=== PATIENT | male | born 1970 | race Caucasian/White ===

== ENCOUNTER → 2018-02-17 08:06 | Outpatient (CLI) | payer OTHER, SELFPAY ==
--- NOTE | 2018-02-17 08:19 | US_ITS ---
STUDY: ABDOMINAL ULTRASOUND - RIGHT UPPER QUADRANT REASON FOR VISIT: Male, 48 years old. Epigastric pain. TECHNIQUE: Ultrasound evaluation of the right upper quadrant was performed with real-time and static andrew-scale imaging. TECHNICAL QUALITY: Limited. Examination limited by bowel gas. COMPARISON: None. FINDINGS: Liver: The liver measures 14.2 cm. There is normal echogenicity of the liver. The bile ducts are within normal limits. There is hepatic color flow. The direction of portal flow is hepatopetal. There is no demonstrated mass lesion. Gallbladder: Normal distended gallbladder. The gallbladder wall measures 2.9 mm. There is a negative sonographic Dinh's sign. There is no pericholecystic fluid. There are no gallstones. Common Bile Duct (C.B.D.): The common bile duct measures 1.8 mm. Pancreas: There is nonvisualization of the pancreas. Right Kidney: Normal size of the right kidney. The right kidney measures 11.8 cm x 4.8 cm x 5.7 cm. Normal renal cortex. The right cortex measures 2.0 cm. There is no demonstrated renal mass or cyst. There is no right hydronephrosis. US/Gallbladder IMPRESSION: Normal right upper quadrant ultrasound examination. Electronically Signed: Axel Mckenzie MD at 20:24 EDT Tel [phone], Service support ,
== END ==
PROVIDERS: Family Provider Internal Medicine; PCP Internal Medicine; Visit Provider Internal Medicine
DX: R10.13 Epigastric pain (principal)
CPT/HCPCS: 76705

== ENCOUNTER → 2018-06-05 06:47 | Outpatient (CLI) | payer OTHER, SELFPAY ==
[2018-06-05 06:52] LABS: Mucous, Urine 0 SEEN /hpf (<or=2+); Red Blood Cells-Urine 0 SEEN /hpf (0-5); Squamous Epithelial Cells - UA 0 SEEN /hpf (0-5); White Blood Cells 0 SEEN /hpf (0-5)
[2018-06-05 07:51] LABS: Absolute Lymphocyte Count 1.75 X10^3/ul (0.83-4.51); Absolute Neutrophil Count 2.4 X10^3/uL (2.0-7.7); Basophil# 0.02 X10^3/uL; Basophil% 0.4 % (0-1); Eosinophil# 0.24 X10^3/uL; Eosinophils% 4.8 % (0-5); Hematocrit 42.5 % (40-54); Hemoglobin 14.5 g/dl (13.0-16.5); Lymphocyte # 1.75 X10^3/ul (4.0); Mean Corp Hgb Conc 34.1 g/gl (32-36); Mean Corpuscular Hgb 30.7 pg (27.0-32.0); Mean Platelet Vol. 10.1 fl (6.2-12.0); Neutrophil # 2.38 X10^3/uL (2.7-7.7); Neutrophil % 47.6 % (47-70); POSITIVE COUNT NO; POSITIVE DIFFERENTIAL NO; POSITIVE MORPHOLOGY NO; Platelet Count 191 K/mm3 (150-450); RBC Distribution Width CV 13.2 % (11.6-14.6); RBC Distribution Width SD 43.2 fl (35.1-43.9); Red Blood Count 4.72 M/mm3 (4.6-6.2)
[2018-06-05 08:21] LABS: AST(SGOT) 20 U/L (15-37); Alanine Aminotransfer ALT/SGPT 33 U/L (16-61); Albumin, Serum 3.9 g/dL (3.2-5.0); Alkaline Phosphatase 46 U/L (45-117); Anion Gap 8 (5-15); BUN 16 mg/dL (7-18); BUN/Creat Ratio 15.1 RATIO (10-20); Calcium,Total 9.1 mg/dL (8.5-10.1); Chloride 105 mmol/L (98-107); Cholesterol 170 mg/dL (200); Creatinine, Serum 1.06 mg/dL (0.70-1.30); EST Glomerular Filtration Rate 79 mL/min (>60); Est Glom Filt Rate - Afr Amer 95 mL/min (>60); Globulin 3.8 g/dL (2.2-4.2); Glucose 85 mg/dL (74-106); High Density Lipoprotein 40 mg/dL; PSA,Total - Annual Screen 0.91 ng/mL (0.00-4.00); Potassium 4.1 mmol/L (3.5-5.1); Protein, Total 7.7 g/dL (6.4-8.2); Sodium Level 140 mmol/L (136-145); Thyroid Stim Hormone (TSH) 1.83 uIU/mL (0.358-3.74); Triglycerides 125 mg/dL; Very Low Density Lipoprotein 25 mg/dL (5-40)
[2018-06-05 08:55] LABS: Color, Urine Yellow (Yellow); Glucose, Dipstick Normal (Normal); Ketone-Dipstick Negative (Negative); Leukocyte Esterase-Dipstick Negative /ul (Negative); Nitrite-Dipstick Negative (Negative); Occult Blood-Urine Negative /ul (Negative); Protein-Dipstick Negative (Negative); Specific Gravity, Urine 1.025 (1.002-1.030); Urine Bilirubin Dipstick Negative (Negative); Urine Clarity Clear (Clear); Urine Urobilinogen Normal (Normal)
[2018-06-05 08:59] LABS: Bacteria RARE /hpf (None Seen)
[2018-06-05 09:16] LABS: Microalbumin,Random Urine 9.6 mg/L (NO RANGE EST.); Microalbumin:Creatinine Ratio 3.5 mg/g CRE (<30 mg/g CRE)
== END ==
PROVIDERS: Family Provider Internal Medicine; PCP Internal Medicine; Visit Provider Internal Medicine
DX: E78.00 Pure hypercholesterolemia, unspecified (principal); I10 Essential (primary) hypertension; Z12.5 Encounter for screening for malignant neoplasm of prostate
CPT/HCPCS: 36415; 80053; 80061; 81001; 82043; 82570; 84153; 84443; 85025; G0103

== ENCOUNTER → 2019-05-09 | Outpatient (CLI) | payer OTHER, SELFPAY ==
[2019-05-09 07:17] LABS: Color, Urine Yellow (Yellow); Glucose, Dipstick Normal (Normal); Ketone-Dipstick Negative (Negative); Leukocyte Esterase-Dipstick Negative /ul (Negative); Nitrite-Dipstick Negative (Negative); Occult Blood-Urine Negative /ul (Negative); Protein-Dipstick Negative (Negative); Urine Bilirubin Dipstick Negative (Negative); Urine Clarity Clear (Clear); Urine Urobilinogen Normal (Normal)
[2019-05-09 07:24] LABS: Absolute Lymphocyte Count 1.14 X10^3/ul (0.83-4.51); Absolute Neutrophil Count 1.5 X10^3/uL (2.0-7.7); Basophil# 0.01 X10^3/uL; Basophil% 0.3 % (0-1); Eosinophil# 0.17 X10^3/uL; Eosinophils% 5.5 % (0-5); Hematocrit 34.4 % (40-54); Hemoglobin 12.1 g/dl (13.0-16.5); Lymphocyte # 1.14 X10^3/ul (4.0); Lymphocyte % 36.8 % (19-41); Mean Corp Hgb Conc 35.2 g/gl (32-36); Mean Corpuscular Hgb 33.8 pg (27.0-32.0); Mean Corpuscular Volume 96.1 fL (80-94); Mean Platelet Vol. 10.7 fl (6.2-12.0); Monocyte# 0.28 X10^3/uL; Neutrophil % 48.4 % (47-70); Platelet Count 70 K/mm3 (150-450); RBC Distribution Width CV 13.7 % (11.6-14.6); RBC Distribution Width SD 48.1 fl (35.1-43.9); Red Blood Count 3.58 M/mm3 (4.6-6.2); White Blood Count 3.1 K/mm3 (4.4-11.0)
[2019-05-09 07:32] LABS: POSITIVE COUNT NO; POSITIVE DIFFERENTIAL NO; POSITIVE MORPHOLOGY NO
[2019-05-09 07:33] LABS: Microalbumin,Random Urine 5.2 mg/L (NO RANGE EST.); Microalbumin:Creatinine Ratio 3.7 mg/g CRE (<30 mg/g CRE)
[2019-05-09 07:48] LABS: ALB/GLOB Ratio 1.1 RATIO (0.9-2.4); AST(SGOT) 18 U/L (15-37); Alanine Aminotransfer ALT/SGPT 26 U/L (16-61); Albumin, Serum 3.7 g/dL (3.2-5.0); Alkaline Phosphatase 43 U/L (45-117); Anion Gap 4 (5-15); BUN 14 mg/dL (7-18); BUN/Creat Ratio 14.7 RATIO (10-20); Chloride 109 mmol/L (98-107); Creatinine, Serum 0.96 mg/dL (0.70-1.30); EST Glomerular Filtration Rate 88 mL/min (>60); Est Glom Filt Rate - Afr Amer 107 mL/min (>60); Globulin 3.4 g/dL (2.2-4.2); Glucose 93 mg/dL (74-106); Potassium 3.9 mmol/L (3.5-5.1); Protein, Total 7.1 g/dL (6.4-8.2); Sodium Level 139 mmol/L (136-145); Thyroid Stim Hormone (TSH) 1.89 uIU/mL (0.358-3.74)
[2019-05-10 14:06] LABS: CHOLESTEROL TOTAL 151 mg/dL (100-199); HDL-C 41 mg/dL (>39); HDL-P TOTAL 27.8 umol/L (>=30.5); SMALL LDL-P 394 nmol/L (<=527); TRIGLYCERIDES 77 mg/dL (0-149)
[2019-05-11 12:01] LABS: INSULIN RESISTANCE SCORE <25 (<=45); LDL SIZE 21.3 nm (>20.5); LDL-C 95 mg/dL (0-99); LDL-P 946 nmol/L (<1000)
== END | disposition home or self-care (01) ==
LOC: LAB 06:10
PROVIDERS: Family Provider Internal Medicine; PCP Internal Medicine; Referring Provider Internal Medicine; Visit Provider Internal Medicine
DX: E78.00 Pure hypercholesterolemia, unspecified (principal); I10 Essential (primary) hypertension; Z12.5 Encounter for screening for malignant neoplasm of prostate
CPT/HCPCS: 36415; 80053; 80061; 81002; 82043; 82570; 83704; 84443; 85025

== ENCOUNTER → 2019-06-18 | Outpatient (CLI) | payer OTHER, SELFPAY ==
[2019-06-18 07:55] LABS: PSA,Total - Annual Screen 0.75 ng/mL (0.00-4.00)
== END | disposition home or self-care (01) ==
LOC: LAB.FUTURE 06:14
PROVIDERS: Family Provider Internal Medicine; PCP Internal Medicine; Referring Provider Internal Medicine; Visit Provider Internal Medicine
DX: Z12.5 Encounter for screening for malignant neoplasm of prostate (principal)
CPT/HCPCS: 36415; 84153; G0103

== ENCOUNTER 2020-10-07 00:33 | Emergency (ER) | payer BC, SELFPAY ==
[2020-10-07 00:35] VITALS: BP 145/92; PULSE 95; RESP 18; TEMP 37.1; O2SAT 98; BMI 28.1
--- NOTE | 2020-10-07 00:47 | ED.DCSUM_ITS ---
History of Present Illness Chief Complaint: Cellulitis Informant: Patient Narrative: Presents with soft tissue infection at his Carter central line in his right chest. He stated he noticed tonight there was some yellowing to the area with mild tenderness. No discharge. Noticed some redness under the dressing. He has had this for several weeks. He is getting clinical trial treatment for myelodysplastic syndrome including [facility] main [facility]. Denies any systemic symptoms. Just noticed it tonight. No fevers. No recent antibiotics. Comes in for further evaluation. Past Medical History - Allergies and Home Meds Allergies/Adverse Reactions: Allergies No Known Allergies Allergy (Verified 10/07/20 00:34) Primary Care Physician: Christina London DO [Primary Care Provider] - Prior records reviewed: Yes Past Medical History: - - myelo dysplastic syndrome Surgical History: - - Carter central line Lives: With Family Smoking Status: Never smoker Alcohol: None Drugs: None Review of Systems General: Denies: Chills, Fever, Sweats Eyes: Denies: Visual changes - bilaterally, Diplopia ENT: Denies: Rhinorrhea, Sore throat Cardiovascular: Denies: Chest pain, Palpitations Respiratory: Denies: Dyspnea, Cough, Dyspnea on exertion Gastrointestinal: Denies: Abdominal pain, Nausea, Vomiting, Diarrhea, Melena, Hematochezia Genitourinary: Denies: Dysuria, Hematuria, Frequency Musculoskeletal: Denies: Back pain, Extremity Pain Skin: Reports: Wounds, - - See HPI. Denies: Rash Neurological: Denies: Headache, Weakness, Numbness Physical Exam Vital Signs/Narrative: Vital Signs Temp Pulse Resp BP Pulse Ox 10/07/20 00:35 98.7 F 95 18 145/92 H 98 General: Well nourished, Well developed, No Acute Distress Head: Normocephalic, Atraumatic Eyes: Perrl, EOMI ENT: Moist mucous membranes, No rhinorrhea Neck: Supple, Nontender Cardiovascular: Regular rate, Regular rhythm, No murmurs Respiratory: No distress, CTA bilaterally, Chest nontender Abdomen: Soft, Nontender, Nondistended, Normal bowel sounds Back: Nontender, Normal Inspection Extremities: Nontender, No edema Skin: - - His Carter site has some mild yellowing consistent with soft tissue infection at the insertion point. This measures 1 cm x 0.5 cm. No abscess. Mild surrounding cellulitis measuring 3 inches x 3 inches. Neurological: Alert, Oriented x3, Cranial nerves II-XII grossly intact, Normal Strength, Normal Sensation Psychological: Normal affect, Normal Mood Diagnostic/Tx/Re-eval - Medical Decision Making IV established and given antibiotics Zosyn and vancomycin. Wound culture and blood culture obtained. Lab work obtained. Shows a pancytopenia with a white count just above 3000. Mild anemia and thrombocytopenia. This is from his clinical trial medications. Wound shows the beginning signs of soft tissue infection with cellulitis. Discussed with the oncology fellow at [facility] prior to the patient coming in. At this time I feel the patient will need IV antibiotics as an inpatient. He would like to drive him self with his to [facility]. He was accessed accepted by Dr. Encinas. ED Disposition - Plan for ED Patient: Disposition: [facility] Diagnosis: Central line insertion site infection
[2020-10-07 00:49] VITALS: BP 145/92; PULSE 95; RESP 18; TEMP 37.1; O2SAT 98
[2020-10-07 01:15] LABS: Absolute Lymphocyte Count 0.91 X10^3/uL (0.83-4.51); Absolute Neutrophil Count 1.6 X10^3/uL (2.0-7.7); Basophil# 0.01 X10^3/uL; Basophil% 0.3 % (0-1); Eosinophil# 0.02 X10^3/uL; Eosinophils% 0.6 % (0-5); Hemoglobin 10.2 g/dL (13.0-16.5); Lymphocyte # 0.91 X10^3/ul (4.0); Lymphocyte % 25.8 % (19-41); Mean Corpuscular Hgb 29.9 pg (27.0-32.0); Mean Platelet Vol. 10.1 fl (6.2-12.0); Monocyte# 0.97 X10^3/uL; Monocyte% 27.5 % (0-10); NRBC Flagged by Analyzer 0 % (0-5); Neutrophil % 45.2 % (47-70); Platelet Count 107 K/mm3 (150-450); RBC Distribution Width CV 13.7 % (11.6-14.6); RBC Distribution Width SD 41.3 fl (35.1-43.9); Red Blood Count 3.41 M/mm3 (4.6-6.2); White Blood Count 3.5 K/mm3 (4.4-11.0)
[2020-10-07 01:18] LABS: Anion Gap 5 (5-15); BUN 13 mg/dL (7-18); BUN/Creat Ratio 11.7 RATIO (10-20); Chloride 110 mmol/L (98-107); Creatinine, Serum 1.11 mg/dL (0.70-1.30); EST Glomerular Filtration Rate 74 mL/min (>60); Est Glom Filt Rate - Afr Amer 89 mL/min (>60); Estimated Creatinine Clearance 75.32 ml/min; Glucose 118 mg/dL (74-106); Potassium 3.9 mmol/L (3.5-5.1); Sodium Level 141 mmol/L (136-145)
--- NOTE | 2020-10-07 01:18 | ED.RN ---
[facility] called for transfer
[2020-10-07 03:19] VITALS: BP 135/86; PULSE 97; RESP 18; TEMP 36.7; O2SAT 100
[2020-10-07 03:21] VITALS: BP 135/86; PULSE 97; RESP 18; TEMP 36.7; O2SAT 100
== END 2020-10-07 03:35 | disposition short-term general hospital (02) ==
PROVIDERS: Emergency Provider Emergency Medicine; PCP Internal Medicine
DX: T80.218A Other infection due to central venous catheter, initial encounter (principal); L03.313 Cellulitis of chest wall; D46.9 Myelodysplastic syndrome, unspecified; D61.818 Other pancytopenia; Z79.899 Other long term (current) drug therapy
CPT/HCPCS: 80048; 85025; 87040; 87070; 87205; 96365; 96366; 96367; 99285; J7030; J7050

== ENCOUNTER 2021-04-07 12:34 | Outpatient (CLI) | payer OTHER, SELFPAY ==
[2021-04-07] VITALS (13 sets, daily range): BP systolic 99–119; BP diastolic 51–75; PULSE 78–115; RESP 15–18; TEMP 36.6–37.1; O2SAT 97–100; BMI 24.3
[2021-04-07] MEDS: Acetaminophen 325 MG Tablet 650 MG PO (13:28)
[2021-04-07] MEDS: DiphenhydrAMINE 25 MG Capsule PO (13:28)
--- NOTE | 2021-04-07 16:45 | NURSING ---
Patient transferred to pcu room 101. Report given to ALEK Elam. IV in left forearm. Patient received 1 unit of blood and now has his second unit of blood transfusing. He will be due for his hourly check next. Patient has 2 units of platelets ordered once he his finished with his blood transfusion. He has a history of reaction with a platelet transfusion in the past and was given Tylenol and Benadryl as pre-medications.
--- NOTE | 2021-04-07 19:49 | NURSING ---
Pt resting in chair at 1949 with no complaints or reactions from blood.
== END 2021-04-07 21:22 ==
LOC: MEDOUTP 12:39 → PCU 16:31
PROVIDERS: PCP Internal Medicine; Referring Provider Internal Medicine Hematology & Oncology; Visit Provider Internal Medicine Hematology & Oncology
DX: Z51.89 Encounter for other specified aftercare (principal); D64.9 Anemia, unspecified
CPT/HCPCS: 36430; 86850; 86900; 86901; 86920; 86922; 86965; J7040; P9037; P9040; A4216

== ENCOUNTER 2021-04-11 09:08 | Outpatient (CLI) | payer OTHER, SELFPAY ==
[2021-04-07 12:43] VITALS: BMI 24.3
[2021-04-11] VITALS (7 sets, daily range): BP systolic 108–116; BP diastolic 67–74; PULSE 79–101; RESP 14–18; TEMP 37–37.3; O2SAT 99–100
[2021-04-11] MEDS: DiphenhydrAMINE 25 MG Capsule PO (09:48)
[2021-04-11] MEDS: Acetaminophen 325 MG Tablet 650 MG PO (09:48)
[2021-04-11] MEDS: 0.9% Saline Lock 10 ML Syringe IV (10:09)
== END 2021-04-11 13:16 ==
LOC: MEDOUTP 09:12 → PCU 09:13
PROVIDERS: PCP Internal Medicine; Referring Provider Internal Medicine Hematology & Oncology; Visit Provider Internal Medicine Hematology & Oncology
DX: D61.818 Other pancytopenia (principal)
CPT/HCPCS: 36430; 86850; 86900; 86901; 86920; 86922; 86965; J7040; P9035; P9040; A4216

== ENCOUNTER → 2021-04-24 12:05 | Outpatient (CLI) | payer OTHER, SELFPAY ==
[2021-04-07 12:43] VITALS: BMI 24.3
[2021-04-24] MEDS: DiphenhydrAMINE 25 MG Capsule PO (12:12)
[2021-04-24] MEDS: Acetaminophen 325 MG Tablet 650 MG PO (12:12)
[2021-04-24] MEDS: 0.9% NaCl Peripheral Flush Adult/Peds IV (12:19)
[2021-04-24 12:20] VITALS: BP 123/85; PULSE 90; RESP 16; TEMP 36.4; O2SAT 98; BMI 23.9
[2021-04-24 12:54] VITALS: BP 111/70; PULSE 86; RESP 16; TEMP 36.3; O2SAT 100
[2021-04-24 13:10] VITALS: BP 113/78; PULSE 82; RESP 16; TEMP 36.4; O2SAT 100
[2021-04-24 13:55] VITALS: BP 108/79; PULSE 77; RESP 16; TEMP 36.3; O2SAT 100
[2021-04-24 14:23] VITALS: BP 110/77; PULSE 80; RESP 16; TEMP 36.3; O2SAT 100
== END ==
PROVIDERS: PCP Internal Medicine; Referring Provider Internal Medicine Hematology & Oncology; Visit Provider Internal Medicine Hematology & Oncology
DX: D46.Z Other myelodysplastic syndromes (principal)
CPT/HCPCS: 36430; 86644; 86900; 86901; 86965; J7040; P9035; A4216

== ENCOUNTER → 2021-09-30 07:47 | Outpatient (CLI) | payer OTHER, SELFPAY ==
--- NOTE | 2021-09-30 07:49 | VDLE_ITS ---
Reason For Study: SWELLING RIGHT LEFT CFV is compressible, spontaneous, phasic, GSV is normal. competent and demonstrates normal CFV is compressible, spontaneous, phasic, augmentation. competent, and demonstrates normal Procedure augmentation. This is a venous duplex using B-mode, color FV is compressible, spontaneous, phasic, flow and spectral Doppler. competent and demonstrates normal Exam performed in department. augmentation. A preliminary report was called and/or faxed POP V is compressible, spontaneous, phasic, to Cheri Arthur. competent and demonstrates normal augmentation. LT T/P TRUNK is PARTIALLY NONCOMPRESSIBLE and dilated . LT PTV is NONCOMPRESSIBLE and dilated proximally and at ankle. The remainder of the PTV is compressible. LT PEROV is dilated and NONCOMPRESSIBLE throughout. VL/Venous Duplex US, Unilateral Interpretation Summary Acute deep vein thrombosis is noted in the left tibio-peroneal trunk. Acute kaylynn p vein thrombosis is noted in the left posterior tibial vein. Acute deep vein thrombosis is noted in the left peroneal vein. The remainder of the left lower extremity deep venous system is patent an d compressible. Valvular competence appears intact within the proximal deep venous system on th e left . The left great saphenous vein appears patent and compressible segmentally. Ordering Physician: Cheri Arthur Referring Physician: BENJAMIN BLEVINS Performed By: Mimi Novak, RDCS, RVT
== END ==
PROVIDERS: PCP Internal Medicine; Referring Provider Nurse Practitioner; Visit Provider Nurse Practitioner
DX: I82.442 Acute embolism and thrombosis of left tibial vein (principal); I82.452 Acute embolism and thrombosis of left peroneal vein
CPT/HCPCS: 93971

== ENCOUNTER → 2021-10-01 08:56 | Outpatient (CLI) | payer OTHER, SELFPAY ==
[2021-10-01 10:36] LABS: PSA,Total - Annual Screen 2.17 ng/mL (0.00-4.00)
== END ==
PROVIDERS: PCP Internal Medicine; Referring Provider Internal Medicine; Visit Provider Internal Medicine
DX: Z12.5 Encounter for screening for malignant neoplasm of prostate (principal)
CPT/HCPCS: 36415; 84153; G0103

== ENCOUNTER 2021-12-29 12:58 | Outpatient (CLI) | payer OTHER, SELFPAY ==
[2021-12-29] MEDS: DiphenhydrAMINE 25 MG Capsule PO (13:13)
[2021-12-29] MEDS: 0.9% NaCl Peripheral Flush Adult/Peds IV (13:18)
[2021-12-29 13:21] VITALS: BP 132/71; PULSE 94; RESP 16; TEMP 36.4; O2SAT 98; BMI 26.6
[2021-12-29 13:52] VITALS: BP 112/68; PULSE 85; RESP 16; TEMP 36.4; O2SAT 97
[2021-12-29 14:05] VITALS: BP 118/73; PULSE 82; RESP 16; TEMP 36.6
== END 2021-12-29 23:59 | disposition home or self-care (01) ==
LOC: MEDOUTP 12:59
PROVIDERS: PCP Internal Medicine; Referring Provider Internal Medicine Hematology & Oncology; Visit Provider Internal Medicine Hematology & Oncology
DX: D46.9 Myelodysplastic syndrome, unspecified (principal); D69.6 Thrombocytopenia, unspecified
CPT/HCPCS: 36430; 86900; 86901; 86965; J7040; P9035; A4216

== ENCOUNTER 2022-01-14 10:06 | Outpatient (CLI) | payer OTHER, SELFPAY ==
[2022-01-14] MEDS: DiphenhydrAMINE 25 MG Capsule PO (10:17)
[2022-01-14] MEDS: Acetaminophen 325 MG Tablet 650 MG PO (10:17)
[2022-01-14] MEDS: 0.9% NaCl Peripheral Flush Adult/Peds IV ×2 (10:17→12:23)
[2022-01-14 10:30] VITALS: BP 117/83; PULSE 118; RESP 18; TEMP 35.9; O2SAT 96
[2022-01-14 10:50] VITALS: BP 115/73; PULSE 82; RESP 16; TEMP 36.8
[2022-01-14 11:12] VITALS: BP 111/70; PULSE 107; RESP 16; TEMP 36.2; O2SAT 98
[2022-01-14 11:49] VITALS: BP 121/75; PULSE 102; RESP 16; TEMP 36.9
[2022-01-14 12:20] VITALS: BP 123/73; PULSE 111; RESP 16; TEMP 37; O2SAT 94
[2022-01-15 01:01] LABS: Color, Urine- Transfusion RXN Yellow (Yellow); Occult Blood-Urine Supernatant Negative (Negative)
[2022-01-15 01:06] LABS: TXN RXN Red Blood Cells-Urine 0 SEEN /hpf
== END 2022-01-14 23:59 | disposition home or self-care (01) ==
PROVIDERS: PCP Internal Medicine; Referring Provider Internal Medicine Hematology & Oncology; Visit Provider Internal Medicine Hematology & Oncology
DX: C92.00 Acute myeloblastic leukemia, not having achieved remission (principal)
CPT/HCPCS: 36430; 86900; 86901; 86965; J7040; P9035; A4216

== ENCOUNTER 2022-01-14 21:13 | Inpatient (IN) | payer OTHER, SELFPAY ==
[2022-01-14 21:14] VITALS: BP 195/172; PULSE 145; RESP 24; TEMP 37.3; O2SAT 93; BMI 25.8
[2022-01-14 21:36] VITALS: BP 160/82; PULSE 137; RESP 22; TEMP 38.1; O2SAT 93
[2022-01-14 21:37] VITALS: O2SAT 90
--- NOTE | 2022-01-14 21:37 | EKG12_ITS ---
Test Reason : SOB Blood Pressure : / mmHG Vent. Rate : 119 BPM Atrial Rate : 119 BPM P-R Int : 120 ms QRS Dur : 082 ms QT Int : 306 ms P-R-T Axes : 032 015 052 degrees QTc Int : 430 ms Sinus tachycardia Otherwise normal ECG Confirmed by RAINER NAVARRETE, TOOTIE ([id number]), editor magazine DAY JOSEPH ([id number]) on 01/15/2022 9:19:24 AM Referred By: CHELSEA Confirmed By:TOOTIE SPEAR MD
--- NOTE | 2022-01-14 21:42 | EDS_ITS ---
HPI History of Present Illness Chief Complaint: Shortness of Breath Informant: patient Narrative Narrative: Patient is a 51-year-old male with history of myelodysplastic syndrome status post stem cell transplant and currently undergoing chemotherapy. Last treatment was Tuesday, 01/11. Patient does have a history of DVT and was taken off of Eliquis due to low platelets. He received 2 units of platelets transfused today. Since then he has had worsening chills, fatigue, shortness of breath and no fever. Patient had a fever up to 100.2 at home. Had Benadryl earlier this morning. Denies any chest pain. Does have associated cough. No known sick contacts. Patient receives his care through [facility]. Patient is never had a reaction like this before. No other complaints at this time. He notes that he currently does not have any immune system. He states his neutrophils have been low recently. [facility] Medical History AML (acute myeloid leukemia) Home Medications acyclovir 400 mg PO BID 10/07/20 [History Last Taken Unknown] amoxicillin 500 mg capsule 500 mg PO BID 06/11/21 [History Last Taken Unknown] calcium carbonate 500 mg calcium (1,250 mg) tablet 500 mg PO DAILY 06/11/21 [History Last Taken Unknown] cholecalciferol (vitamin D3) 25 mcg (1,000 unit) capsule 25 mcg PO DAILY 06/11/21 [History Last Taken Unknown] magnesium 250 mg tablet 250 mg PO DAILY 06/11/21 [History Last Taken Unknown] omeprazole 10 mg capsule,delayed release 10 mg PO DAILY 06/11/21 [History Last Taken Unknown] prednisone 5 mg tablet 30 mg PO DAILY tab 06/11/21 [History Last Taken Unknown] voriconazole 200 mg tablet 200 mg PO Q12H 06/11/21 [History Last Taken Unknown] Allergy/AdvReac Type Severity Reaction Status Date / Time No Known Allergies Allergy Verified 12/29/21 13:24 Social History Smoking Status: Never smoker ROS ROS ED Constitutional Constitutional ED: Reports chills and fever(s) Eyes Eyes: Denies blurry vision or change in vision ENT ENT ED: Denies rhinorrhea or sore throat Cardiovascular Cardiovascular: Denies chest pain Respiratory/Chest Respiratory/Chest: Reports cough and dyspnea Gastrointestinal Gastrointestinal: Denies abdominal pain, nausea or vomiting Musculoskeletal Musculoskeletal: Reports myalgias; Denies arthralgias Integumentary Denies rash Neurologic Neurologic: Reports weakness; Denies headache(s) or paresthesias Psychiatric Psychiatric: Denies depression EXAM Physical Exam Const Vital Signs: 01/14/22 21:14 01/14/22 21:36 01/14/22 21:37 Temperature 99.1 F 100.5 F H Temperature Source Temporal Temporal Pulse Rate 145 H 137 H Respiratory Rate 24 H 22 H Respiratory Effort Short of Breath Blood Pressure 195/172 H 160/82 H Blood Pressure Mean 179 108 Pulse Ox 93 93 Oxygen Delivery Method Room Air Nasal Cannula Room Air Oxygen Flow Rate (L/min) 2 01/14/22 22:09 01/14/22 23:38 Temperature 100.5 F H 102.3 F H Temperature Source Temporal Temporal Pulse Rate 122 H 138 H Respiratory Rate 22 H 28 H Respiratory Effort Blood Pressure 131/74 H 154/93 H Blood Pressure Mean 93 113 Pulse Ox 98 96 Oxygen Delivery Method Nasal Cannula Nasal Cannula Oxygen Flow Rate (L/min) 2 2 Positive well nourished and well developed General Appearance ED: well developed and pallor HEENT Reports moist mucous membranes Negative for trauma Eyes PERRL and EOMs intact bilaterally Neck supple and no JVD Chest Wall inspection of chest normal Resp Resp Narrative: Mildly tachypneic. Crackles at the bases bilaterally. No wheezing appreciated. Cardio regular rhythm Rate: tachycardic GI normal to inspection, nondistended, normoactive bowel sounds Palpation: soft Back/Spine no CVA tenderness Extremity normal to inspection General Extremety ED: Negative for edema or tenderness General Extremity: Negative for edema Neuro oriented x3 and no sensory deficits noted Sensorium / Orientation: alert Psych mental status grossly normal Skin no rashes or lesions noted General Skin Exam: pallor MDM MDM MDM Narrative Medical decision making narrative: Patient evaluated for sudden onset of chills, fever and shortness of breath. It occurred earlier today would he was receiving platelet transfusions. Patient has myelodysplastic syndrome and is currently undergoing chemotherapy for this. He does have a history of stem cell transplant and this year also had [id number] in his bronchials per his . Work-up immediately done for neutropenic fever patient is started on broad-spectrum antibiotics. He is given cefepime per hospital protocol. Patient is requiring supplemental oxygen is 90 to 92% on room air. Chest x-ray is concerning for bilateral pneumonia. Patient's BNP is normal. Chest x-rays not consistent with interstitial edema. I do not think patient requires Lasix at this time, BiPAP or further aggressive treatment for TRALI. Patient is tachycardic in the ER. I suspect this is fever related. He does start to have rigors at time of disposition. He is given additional 325 mg dose of Tylenol as his fever is now worsening. Will avoid NSAIDs because of his thrombocytopenia. Differential includes neutropenic fever versus transfusion reaction. Case is discussed with oncology on-call at [facility], Dr. Roman, he recommends doing the transfusion reaction work-up including Priscilla test, repeat type and screen haptoglobin and LDH. Blood bank is notified of need for transfusion reaction work-up. In addition patient will continue to be treated with IV antibiotics empirically for neutropenic fever. Respiratory panel obtained as well. Oncology is comfortable with patient staying at [facility] at this time. Patient is admitted to hospital service. Lab Data Attestation: I reviewed the patient's lab results. Labs: Laboratory Results - last 24 hr 01/14/22 01/14/22 01/14/22 21:52 21:52 21:52 WBC 0.5 L* RBC 2.56 L Hgb 8.4 L Hct 24.0 L MCV 93.8 MCH 32.8 H MCHC 35.0 RDW Std Deviation 55.7 H RDW Coeff of Thomas 16.2 H Plt Count 17 L* MPV 9.2 Immature Gran % (Auto) 0.000 Neut % (Auto) 1.9 L Lymph % (Auto) 58.5 H [place] % (Auto) 39.6 H Eos % (Auto) 0.0 Baso % (Auto) 0.0 Absolute Neuts (auto) 0.0 L Absolute Lymphs (auto) 0.31 L Nucleated RBC % 0 Differential Comment SCANNED Diff Path Review March foll PT 13.1 INR 1.1 APTT 27.3 Sodium 142 Potassium 3.9 Chloride 110 H Carbon Dioxide 27.0 Anion Gap 5 BUN 21 H Creatinine 1.11 Estim Creat Clear Calc 79.47 Est GFR (MDRD) Af Amer 89 Est GFR (MDRD) Non-Af 73 BUN/Creatinine Ratio 18.9 Glucose 109 H Lactic Acid Calcium 9.3 Total Bilirubin 0.40 AST 64 H ALT 83 H Alkaline Phosphatase 70 Lactate Dehydrogenase Total Creatine Kinase 46 B-Natriuretic Peptide Total Protein 5.8 L Albumin 2.6 L Globulin 3.2 Albumin/Globulin Ratio 0.8 L 01/14/22 01/14/22 01/14/22 21:52 21:52 21:52 WBC RBC Hgb Hct MCV MCH MCHC RDW Std Deviation RDW Coeff of Thomas Plt Count MPV Immature Gran % (Auto) Neut % (Auto) Lymph % (Auto) [place] % (Auto) Eos % (Auto) Baso % (Auto) Absolute Neuts (auto) Absolute Lymphs (auto) Nucleated RBC % Differential Comment Diff Path Review PT INR APTT Sodium Potassium Chloride Carbon Dioxide Anion Gap BUN Creatinine Estim Creat Clear Calc Est GFR (MDRD) Af Amer Est GFR (MDRD) Non-Af BUN/Creatinine Ratio Glucose Lactic Acid 1.7 Calcium Total Bilirubin AST ALT Alkaline Phosphatase Lactate Dehydrogenase 786 H Total Creatine Kinase B-Natriuretic Peptide 61.2 Total Protein Albumin Globulin Albumin/Globulin Ratio Radiography Chest X-Ray - ED: 1 View, Read by ED Physician, Read by Radiologist and Right Infiltrate Diagnostic Testing: Clinical Impression(s) from Imaging Studies Chest X-Ray 01/14/22 22:48 IMPRESSION: Bilateral lower lobe pneumonia. Electronically Signed: Dequan Van MD at 23:27 EST Reading Location ID and State: [address] [place] [address] Tel , Service support , Rhythm Strip Rhythm Strip: Sinus Tach Rate: 119 Ectopy: None EKG Initial EKG: Attestation: I personally reviewed and interpreted this EKG as follows: Interpretation: Sinus Tachycardia Comments: Sinus tachycardia rate of 119 Normal axis Normal intervals Normal ST segments Discharge Plan Triage Chief Complaint: Shortness of Breath ED Provider: Sisi Galo Dx/Rx/DC Orders Clinical Impression: Fever and neutropenia, Bilateral pneumonia, Pancytopenia, Myelodysplastic syndrome Primary Care Provider: Christina London Disposition Disposition: Acute Care Hospital [facility]
[2022-01-14] MEDS: 0.9% Normal Saline 1,000 ML 999 ML IV (22:05)
[2022-01-14] MEDS: Acetaminophen 325 MG Tablet 650 MG PO (22:06)
[2022-01-14] MEDS: DiphenhydrAMINE 50 MG/ML Syringe IV (22:06)
[2022-01-14 22:09] VITALS: BP 131/74; PULSE 122; RESP 22; TEMP 38.1; O2SAT 98
[2022-01-14 22:11] LABS: Absolute Lymphocyte Count 0.31 X10^3/uL (0.83-4.51); Hemoglobin 8.4 g/dL (13.0-16.5); Lymphocyte # 0.31 X10^3/ul (0.83-4.51); Lymphocyte % 58.5 % (19-41); Mean Corpuscular Hgb 32.8 pg (27.0-32.0); Mean Corpuscular Volume 93.8 fL (80-94); Mean Platelet Vol. 9.2 fl (6.2-12.0); Monocyte# 0.21 X10^3/uL; Monocyte% 39.6 % (0-10); NRBC Flagged by Analyzer 0 % (0-5); Neutrophil # 0.01 X10^3/uL (2.7-7.7); Neutrophil % 1.9 % (47-70); POSITIVE COUNT YES; POSITIVE DIFFERENTIAL YES; POSITIVE MORPHOLOGY YES; RBC Distribution Width CV 16.2 % (11.6-14.6); RBC Distribution Width SD 55.7 fl (35.1-43.9); Red Blood Count 2.56 M/mm3 (4.6-6.2)
[2022-01-14 22:24] LABS: ALB/GLOB Ratio 0.8 RATIO (0.9-2.4); AST(SGOT) 64 U/L (15-37); Alanine Aminotransfer ALT/SGPT 83 U/L (16-61); Albumin, Serum 2.6 g/dL (3.2-5.0); Alkaline Phosphatase 70 U/L (45-117); Anion Gap 5 (5-15); BUN 21 mg/dL (7-18); BUN/Creat Ratio 18.9 RATIO (10-20); CPK Total, Creatine Kinase 46 U/L (39-308); Calcium,Total 9.3 mg/dL (8.5-10.1); Chloride 110 mmol/L (98-107); Creatinine, Serum 1.11 mg/dL (0.70-1.30); EST Glomerular Filtration Rate 73 mL/min (>60); Est Glom Filt Rate - Afr Amer 89 mL/min (>60); Estimated Creatinine Clearance 79.47 ml/min; Globulin 3.2 g/dL (2.2-4.2); Glucose 109 mg/dL (74-106); Potassium 3.9 mmol/L (3.5-5.1); Protein, Total 5.8 g/dL (6.4-8.2); Sodium Level 142 mmol/L (136-145); White Blood Count 0.5 K/mm3 (4.4-11.0)
[2022-01-14 22:25] LABS: Differential Indicated SCAN CRITERIA MET; Platelet Count 17 K/mm3 (150-450)
[2022-01-14 22:31] LABS: International Normalized Ratio 1.1; Prothrombin Time (Protime)PT. 13.1 SECONDS (11.7-14.9)
[2022-01-14 22:32] LABS: Partial Thromboplast Time 27.3 Seconds (24.1-36.2)
[2022-01-14 22:39] LABS: Lactic Acid 1.7 mmol/L (0.4-1.9)
--- NOTE | 2022-01-14 22:48 | RAD_ITS ---
EXAM: XR CHEST, 1 VIEW CLINICAL INDICATION: cough TECHNIQUE: Frontal view of the chest. This report was created using Sounder report generation technology. COMPARISON: None. FINDINGS: LUNGS AND PLEURAL SPACES: Pneumonia involving the right and left lower lobe. No pneumothorax. No effusion. HEART: Unremarkable. Cardiac silhouette not enlarged. MEDIASTINUM: Central airways and mediastinal contour are unremarkable. BONES/JOINTS: Unremarkable. SOFT TISSUES: Unremarkable. TUBES, LINES AND DEVICES: Right-sided central venous catheter identified with tip at or near the cavoatrial junction. RAD/Chest 1 View (Portable) IMPRESSION: Bilateral lower lobe pneumonia. Electronically Signed: Dequan Van MD at 23:27 EST ,
[2022-01-14 23:04] LABS: Differential Comment SCANNED
[2022-01-14 23:21] LABS: BNP,B-Type NATRIURETIC PEPTIDE 61.2 pg/mL (0-100)
[2022-01-14 23:22] LABS: LDH 786 U/L (87-241)
[2022-01-14 23:38] VITALS: BP 154/93; PULSE 138; PULSE 143; RESP 28; TEMP 39.1; O2SAT 94; O2SAT 96
[2022-01-14] MEDS: Acetaminophen 325 MG Tablet PO (23:56)
[2022-01-15] VITALS (9 sets, daily range): BP systolic 102–136; BP diastolic 62–78; PULSE 97–124; RESP 18–20; TEMP 36.6–39.1; O2SAT 94–99; BMI 26.2
--- NOTE | 2022-01-15 00:46 | HP.PCM.HOS_ITS ---
HPI - General General Date of Admission: 01/14/22 HPI Narrative YOJANA ALONZO, is a 51 M who presents to the hospital with fever and shortness of breath. He has a history of myelodysplastic syndrome and he is status post a stem cell transplant. 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 He was placed on twice daily Cipro as well as Bactrim 3 days a week, voriconazole and acyclovir given his neutropenia. His absolute neutrophil count is 0 and he has been been febrile he reached 102 while here in the ER. He does have significant rigors and chest x-ray demonstrated a bilateral lower lobe pneumonia. There is also some concern because he was transfused 2 units of platelets today but this could be a transfusion reaction so the ER did get in contact with his hospital clinic assistant who recommended work-up for transfusion related reaction however he states that his shortness of breath and the symptoms of brought him and had actually started before the transfusion. [facility] Medical History (Updated 01/14/22 @ 23:[address] Sisi Galo DO) AML (acute myeloid leukemia) Home Medications acyclovir 400 mg PO BID 10/07/20 [History Last Taken Unknown] cholecalciferol (vitamin D3) 25 mcg (1,000 unit) capsule 25 mcg PO DAILY 06/11/21 [History Last Taken Unknown] prednisone 5 mg tablet 30 mg PO DAILY tab 06/11/21 [History Last Taken Unknown] voriconazole 200 mg tablet 200 mg PO Q12H 06/11/21 [History Last Taken Unknown] ciprofloxacin HCl 500 mg PO BID 01/14/22 [History Last Taken Unknown] famotidine 20 mg PO BID 01/14/22 [History Last Taken Unknown] sulfamethoxazole-trimethoprim 1 tab PO MOWEFR 01/14/22 [History Last Taken Unknown] ursodiol 250 mg PO TID 01/14/22 [History Last Taken Unknown] Allergy/AdvReac Type Severity Reaction Status Date / Time No Known Allergies Allergy Verified 12/29/21 13:24 Family History (Updated 01/15/22 @ 00:[address] Tahir Salinas MD) Other Cancer Heart disease Surgical History (Updated 01/15/22 @ 00:[address] Tahir Salinas MD) Status post medial meniscal repair Social History Smoking Status: Never smoker ROS Constitutional Constitutional: Reports chills and fever(s); Denies fatigue or malaise Eyes Eyes: Denies blurry vision ENT HEENT: Denies headache(s) or nasal discharge Cardiovascular Cardiovascular: Denies chest pain, dyspnea on exertion or syncope Respiratory/Chest Respiratory/Chest: Reports cough and shortness of breath at rest; Denies shortness of breath with exertion Gastrointestinal Gastrointestinal: Denies constipation, diarrhea, nausea or vomiting Genitourinary Genitourinary: Denies dysuria Neurologic Neurologic: Denies focal weakness, numbness or tremor(s) Psychiatric Psychiatric: Denies anxiety or depression Vital Signs Vital Signs Vital Signs: 01/14/22 21:14 01/14/22 21:36 01/14/22 21:37 Temperature 99.1 F 100.5 F H Temperature Source Temporal Temporal Pulse Rate 145 H 137 H Respiratory Rate 24 H 22 H Respiratory Effort Short of Breath Blood Pressure 195/172 H 160/82 H Blood Pressure Mean 179 108 Pulse Ox 93 93 Oxygen Delivery Method Room Air Nasal Cannula Room Air Oxygen Flow Rate (L/min) 2 01/14/22 22:09 01/14/22 23:38 01/15/22 00:19 Temperature 100.5 F H 102.3 F H 102.3 F H Temperature Source Temporal Temporal Temporal Pulse Rate 122 H 138 H Respiratory Rate 22 H 28 H Respiratory Effort Blood Pressure 131/74 H 154/93 H Blood Pressure Mean 93 113 Pulse Ox 98 96 Oxygen Delivery Method Nasal Cannula Nasal Cannula Oxygen Flow Rate (L/min) 2 2 Weight Weight: 180 lb Body Mass Index (BMI) 25.8 Physical Exam Const alert and oriented x3 General Appearance: cooperative and ill appearing Positive for acutely HEENT normocephalic Mouth: dry mucous membranes Eyes PERRL, EOMs intact bilaterally and conjunctivae normal Neck supple and no JVD Resp normal respiratory effort, no retractions and no use of accessory muscles Effort and Inspection: tachypneic Auscultation: crackles; Negative for rales, rhonchi or wheezes Cardio regular rhythm, S1 normal heart sound, S2 normal heart sound and no murmurs Rate: tachycardic GI soft to palpation, non-tender and non-distended; Negative for hepatosplenomegaly Extremity no clubbing, cyanosis or edema Skin no rashes or lesions noted Neuro no focal motor deficits and no sensory deficits noted Psych affect normal Appearance: appropriate Results Lab / Micro Data Result Diagrams: 01/14/22 21:52 01/14/22 21:52 Labs: Laboratory Results - last 24 hr 01/14/22 21:52: Sodium 142, Potassium 3.9, Chloride 110 H, Carbon Dioxide 27.0, Anion Gap 5, BUN 21 H, Creatinine 1.11, Estim Creat Clear Calc 79.47, Est GFR (MDRD) Af Amer 89, Est GFR (MDRD) Non-Af 73, BUN/Creatinine Ratio 18.9, Glucose 109 H, Calcium 9.3, Total Bilirubin 0.40, AST 64 H, ALT 83 H, Alkaline Phosphatase 70, Total Creatine Kinase 46, Total Protein 5.8 L, Albumin 2.6 L, Globulin 3.2, Albumin/Globulin Ratio 0.8 L 01/14/22 21:52: WBC 0.5 L*, RBC 2.56 L, Hgb 8.4 L, Hct 24.0 L, MCV 93.8, MCH 32 .8 H, MCHC 35.0, RDW Std Deviation 55.7 H, RDW Coeff of Thomas 16.2 H, Plt Count 17 L*, MPV 9.2, Immature Gran % (Auto) 0.000, Neut % (Auto) 1.9 L, Lymph % (Auto) 58.5 H, [place] % (Auto) 39.6 H, Eos % (Auto) 0.0, Baso % (Auto) 0.0, Absolute [place] ts (auto) 0.0 L, Absolute Lymphs (auto) 0.31 L, Nucleated RBC % 0, Differential Comment SCANNED, Diff Path Review March01/14/22 21:52: PT 13.1, INR 1.1, APTT 27.3 01/14/22 21:52: Lactic Acid 1.7 01/14/22 21:52: B-Natriuretic Peptide 61.2 01/14/22 21:52: Lactate Dehydrogenase 786 H 01/14/22 22:58: Direct Antiglob Test NEG w/POLYSPECIFIC Micro: Microbiology 01/14/22 22:16 Mucosa - Nose Influenza Types A,B Direct FA (CLAUDIA) - Final 01/14/22 21:55 Interface Orders SARS-CoV-2 Antigen (Rapid) - Final Rhythm Strip Rhythm Strip: Sinus Tach Rate: 119 Ectopy: None Radiology Impression Chest X-Ray 01/14/22 22:48 IMPRESSION: Bilateral lower lobe pneumonia. Electronically Signed: Dequan Van MD at 23:27 EST Reading Location ID and State: [facility] / [place] Tel , Service support , Assessment & Plan Assessment/Plan (1) Bilateral pneumonia: (2) Fever and neutropenia: PLAN: 1. Neutropenic fever secondary to bilateral pneumonia/myelodysplastic syndrome converting to AML status post chemotherapy/pancytopenia ?We will continue with cefepime 2 g IV every 8 ?He did receive a fluid bolus in the ER, technically does not qualify as septic from the qSOFA criteria ?Continue with IV fluids ?We will consult oncology ?LDH is elevated and awaiting the rest of the work-up for transfusion reaction given his platelet transfusion this morning ?Continue with his voriconazole, and acyclovir, can hold his Bactrim and Cipro. We will also hold his prednisone given the severity of his infection DVT: SCDs Charges/Coding Visit Charges Inpatient E&M: 20676 Init Hosp L3
[2022-01-15 00:54] LABS: Mucous, Urine 0 SEEN /hpf (<or=2+); Red Blood Cells-Urine 0 SEEN /hpf (0-5); Squamous Epithelial Cells - UA 0 SEEN /hpf (0-5); White Blood Cells 0 SEEN /hpf (0-5)
[2022-01-15 00:55] LABS: Color, Urine Yellow (Yellow); Glucose, Dipstick Normal (Normal); Ketone-Dipstick Negative (Negative); Leukocyte Esterase-Dipstick Negative /ul (Negative); Nitrite-Dipstick Negative (Negative); Occult Blood-Urine Negative /ul (Negative); Protein-Dipstick Negative (Negative); Urine Bilirubin Dipstick Negative (Negative); Urine Clarity Clear (Clear); Urine Urobilinogen Normal (Normal)
[2022-01-15 01:07] LABS: Bacteria RARE /hpf (None Seen)
[2022-01-15] MEDS: 0.9% Normal Saline 1,000 ML 125 ML IV ×3 (02:04→18:43)
[2022-01-15] MEDS: 0.9% Saline Lock 10 ML Syringe IV ×4 (02:04→21:46)
[2022-01-15] MEDS: Ursodiol 250 MG Tablet PO ×3 (06:02→22:49)
[2022-01-15 06:21] LABS: Absolute Lymphocyte Count 0.22 X10^3/uL (0.83-4.51); Hematocrit 21.2 % (40-54); Hemoglobin 7.3 g/dL (13.0-16.5); Lymphocyte # 0.22 X10^3/ul (0.83-4.51); Lymphocyte % 78.6 % (19-41); Mean Corp Hgb Conc 34.4 g/dL (32-36); Mean Corpuscular Hgb 32.2 pg (27.0-32.0); Mean Corpuscular Volume 93.4 fL (80-94); Mean Platelet Vol. 9.9 fl (6.2-12.0); Monocyte# 0.05 X10^3/uL; Monocyte% 17.9 % (0-10); NRBC Flagged by Analyzer 0 % (0-5); Neutrophil # 0.01 X10^3/uL (2.7-7.7); Neutrophil % 3.5 % (47-70); POSITIVE COUNT YES; POSITIVE DIFFERENTIAL YES; RBC Distribution Width CV 16.3 % (11.6-14.6); RBC Distribution Width SD 55.6 fl (35.1-43.9); Red Blood Count 2.27 M/mm3 (4.6-6.2)
[2022-01-15 06:26] LABS: White Blood Count 0.3 K/mm3 (4.4-11.0)
[2022-01-15 06:27] LABS: Differential Indicated SCAN CRITERIA MET; Platelet Count 7 K/mm3 (150-450)
[2022-01-15 06:39] LABS: Anion Gap 6 (5-15); BUN 20 mg/dL (7-18); BUN/Creat Ratio 16.8 RATIO (10-20); Calcium,Total 8.9 mg/dL (8.5-10.1); Chloride 114 mmol/L (98-107); Creatinine, Serum 1.19 mg/dL (0.70-1.30); EST Glomerular Filtration Rate 68 mL/min (>60); Est Glom Filt Rate - Afr Amer 82 mL/min (>60); Estimated Creatinine Clearance 74.12 ml/min; Glucose 89 mg/dL (74-106); Potassium 3.6 mmol/L (3.5-5.1); Sodium Level 143 mmol/L (136-145)
[2022-01-15 06:40] LABS: Differential Comment SCANNED; Platelet Estimate MKD DEC (ADEQ)
[2022-01-15 06:41] LABS: Anisocytosis 1+; Hypochromasia 1+; Microcytosis 1+
--- NOTE | 2022-01-15 07:31 | PCM.RX.CS ---
Consult Pharmacy has been consulted to manage selected antiobiotic: Vancomycin Type of Consult: New start Suspected Infection: Pneumonia Labs: Sodium 143 mmol/L (136-145) 01/15/22 06:00 Potassium 3.6 mmol/L (3.5-5.1) 01/15/22 06:00 Chloride 114 mmol/L (98-107) H 01/15/22 06:00 Carbon Dioxide 23.0 mmol/L (21.0-32.0) 01/15/22 06:00 Anion Gap 6 (5-15) 01/15/22 06:00 BUN 20 mg/dL (7-18) H 01/15/22 06:00 Creatinine 1.19 mg/dL (0.70-1.30) 01/15/22 06:00 Est GFR (MDRD) Af Amer 82 mL/min (>60) 01/15/22 06:00 Est GFR (MDRD) Non-Af 68 mL/min (>60) 01/15/22 06:00 BUN/Creatinine Ratio 16.8 RATIO (10-20) 01/15/22 06:00 Glucose 89 mg/dL (74-106) 01/15/22 06:00 Microbiology: Microbiology 01/14/22 22:16 Mucosa - Nose Influenza Types A,B Direct FA (CLAUDIA) - Final 01/14/22 21:55 Interface Orders SARS-CoV-2 Antigen (Rapid) - Final Goal Trough: 15-20 mcg/mL Pharmacy Plan for Drug Dosing: NEW START IV VANCOMYCIN Consulting Physician: Dr. Deep Brambila Indication: Neutropenic Fever w/ Pneumonia Goal Trough: 15-20 SrCr: 1.19 (increased from 1.11 on 01/14/22) CrCl: 74 mls/min Comments: Vancomcyin Dose: based on pts weight and renal function, recommend an initial dose of 1250mg q12h starting 01/15/22 at 0800. trough before the 4th total dose Pending Level: 01/16/22 at 1930 Pharmacy Service will continue to monitor and adjust dosing as required. Follow-Up Labs: Trough Vancomycin - 01/16/22 at 1930
[2022-01-15] MEDS: Acetaminophen 325 MG Tablet 650 MG PO ×2 (08:30→18:01)
[2022-01-15] MEDS: Acyclovir 200 MG Capsule 400 MG PO ×2 (09:36→21:46)
[2022-01-15] MEDS: Famotidine 20 MG Tablet PO ×2 (09:36→21:46)
[2022-01-15] MEDS: Voriconazole 200 MG Tablet PO ×2 (09:37→21:46)
[2022-01-15] MEDS: Hydrocortisone Sod Succinate 100 MG/2 ML Vial 50 MG IV ×3 (09:38→21:46)
--- NOTE | 2022-01-15 10:19 | CON.PCM.ON_ITS ---
Assessment & Plan Assessment/Plan (1) Bilateral pneumonia: Status: Acute Code(s): J18.9 - Pneumonia, unspecified organism (2) Fever and neutropenia: Status: Acute Code(s): D70.9 - Neutropenia, unspecified; R50.81 - Fever presenting with conditions classified elsewhere Plan: The patient is a 51-year-old man admitted with pancytopenia and neutropenic fever following first 3 doses of Mylotarg salvage therapy for AML. Hemodynamically he is stable. 1 set of blood cultures is growing GPC's. The other remains negative thus far. He is on broad-spectrum antibiotics with cefepime and vancomycin. Plan: -Plan: -Continue hydration. -Continue cefepime and vancomycin. -ID consultation. -Awaiting identification of GPC's on blood culture and results of second blood culture. -Transfuse red blood cells to maintain hemoglobin 7.5 or greater. -Transfuse platelets to maintain platelet count above 10-15,000. -He should receive irradiated blood products. HPI Consult Data Date of Service:: 01/15/22 PCP / Referring Provider: Dr. Christina London DO Attending: Dr. 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 Most recently, he developed dropping blood counts. A bone marrow aspirate and biopsy were performed on December 21, 2021, which demonstrated acute myeloid leukemia. ? HISTORY OF PRESENT ILLNESS: The patient was initially diagnosed with MDS in June 2019. Cytogenetics were normal. He received treatment with azacitidine and achieved complete remission. He then received maintenance with azacitidine. However, his counts dropped and he was started on full dose azacitidine. A bone marrow in May 2020 showed relapsed MDS with 8% blasts. He was started on decitabine with progressive disease. Followup bone marrow in August 2020 showed 15% blasts with complex cytogenetics and P53 mutation. Due to progressive disease, he was referred for further evaluation and management at [facility]. He was treated on clinical trial with CPX 351. Unfortunately, he had refractory disease. He was subsequently treated on clinical trial with SGN anti-CD 70 antibody and achieved a morphologic leukemia free state. He then underwent allogeneic transplant with his brother being the donor. Transplant date was December 02, 2020. The details of the preparative regimen and prophylaxis are documented in Dr. Kenney's note from December 21, 2021.. Most recently received therapy with Mylotarg with doses on 01/04, 01/07 and 01/11. He received a 2 unit platelet transfusion yesterday as an outpatient. He was very fatigued during and following the transfusion. Last evening he had a fever up to 101. He presented to the ER. Counts noted. Fever was 100.5 on presentation. Blood cultures and urine culture were obtained. Covid was ruled out. Patient was admitted on broad-spectrum antibiotics. 1 set of blood cultures demonstrated GPC's so vancomycin was initiated this morning. He has no complaints this morning other than feeling very fatigued. Mouth is dry. He has had a few oral blood blisters without any active bleeding. Denies bleeding otherwise. Most recent temperature was 98.3. Denies diarrhea and urinary compl aints. Advanced Directives Power of Rubber Compounder Formulator: Yes Living Will: Yes [facility] Medical History AML (acute myeloid leukemia) Home Medications acyclovir 400 mg PO BID 10/07/20 [History Last Taken Unknown] prednisone 5 mg tablet 30 mg PO DAILY tab 06/11/21 [History Last Taken Unknown] voriconazole 200 mg tablet 200 mg PO Q12H 06/11/21 [History Last Taken Unknown] ciprofloxacin HCl 500 mg PO BID 01/14/22 [History Last Taken Unknown] famotidine 20 mg PO BID 01/14/22 [History Last Taken Unknown] sulfamethoxazole-trimethoprim 1 tab PO MOWEFR 01/14/22 [History Last Taken Unk nown] ursodiol 250 mg PO TID 01/14/22 [History Last Taken Unknown] cholecalciferol (vitamin D3) 50 mcg PO DAILY 01/15/22 [History Last Taken Unknown] Allergy/AdvReac Type Severity Reaction Status Date / Time No Known Allergies Allergy Verified 12/29/21 13:24 Family History (Updated 01/15/22 @ 00:[address] Tahir Salinas MD) Other Cancer Heart disease Surgical History Status post medial meniscal repair Social History Smoking Status: Never smoker Physical Exam Const oriented x3 HEENT HEENT Narrative: Dry mucosa with multiple blood blisters. Neck no lymphadenopathy Resp no use of accessory muscles Effort and Inspection: symmetric chest movement Cardio regular rhythm GI soft to palpation Vital Signs Temperature 99.5 F H 01/15/22 09:09 Temperature Source Oral 01/15/22 09:09 Pulse Rate 114 H 01/15/22 09:09 Pulse Strength Normal (2+) 01/15/22 09:09 Respiratory Rate 18 01/15/22 09:09 Respiratory Effort Non-Labored 01/15/22 02:10 Respiratory Depth Normal 01/15/22 02:10 Respiratory Pattern Normal 01/15/22 02:10 Blood Pressure 136/78 H 01/15/22 09:09 Blood Pressure Mean 97 01/15/22 09:09 Blood Pressure Source Monitor 01/15/22 09:09 Blood Pressure Position Semi-Fowlers 01/15/22 09:09 Blood Pressure Location Right Arm 01/15/22 09:09 Pulse Ox 99 01/15/22 09:09 Oxygen Delivery Method Nasal Cannula 01/15/22 09:09 Oxygen Flow Rate (L/min) 2 01/15/22 09:09 Laboratory Results - last 24 hr 01/14/22 21:52: Sodium 142, Potassium 3.9, Chloride 110 H, Carbon Dioxide 27.0, Anion Gap 5, BUN 21 H, Creatinine 1.11, Estim Creat Clear Calc 79.47, Est GFR (MDRD) Af Amer 89, Est GFR (MDRD) Non-Af 73, BUN/Creatinine Ratio 18.9, Glucose 109 H, Calcium 9.3, Total Bilirubin 0.40, AST 64 H, ALT 83 H, Alkaline Phosphatase 70, Total Creatine Kinase 46, Total Protein 5.8 L, Albumin 2.6 L, Globulin 3.2, Albumin/Globulin Ratio 0.8 L 01/14/22 21:52: WBC 0.5 L*, RBC 2.56 L, Hgb 8.4 L, Hct 24.0 L, MCV 93.8, MCH 32.8 H, MCHC 35.0, RDW Std Deviation 55.7 H, RDW Coeff of Thomas 16.2 H, Plt Count 17 L*, MPV 9.2, Immature Gran % (Auto) 0.000, Neut % (Auto) 1.9 L, Lymph % (Auto) 58.5 H, [place] % (Auto) 39.6 H, Eos % (Auto) 0.0, Baso % (Auto) 0.0, Absolute Neuts (auto) 0.0 L, Absolute Lymphs (auto) 0.31 L, Nucleated RBC % 0, Differential Comment SCANNED, Diff Path Review March foll 01/14/22 21:52: PT 13.1, INR 1.1, APTT 27.3 01/14/22 21:52: Lactic Acid 1.7 01/14/22 21:52: B-Natriuretic Peptide 61.2 01/14/22 21:52: Lactate Dehydrogenase 786 H 01/14/22 22:58: Direct Antiglob Test NEG w/POLYSPECIFIC 01/15/22 00:45: Urine Color Yellow, Urine Clarity Clear, Urine pH 8.0, Ur Specific [place] 1.010, Urine Protein Negative, Urine Glucose (UA) Normal, Urine Ketones Negative, Urine Occult Blood Negative, Urine Nitrite Negative, Urine Bilirubin Negative, Urine Urobilinogen Normal, Ur Leukocyte Esterase Negative, Urine RBC 0 SEEN, Urine WBC 0 SEEN, Ur Squamous Epith Cells 0 SEEN, Urine Bacteria RARE, Urine Mucus 0 SEEN 01/15/22 06:00: WBC 0.3 L*, RBC 2.27 L, Hgb 7.3 L, Hct 21.2 L, MCV 93.4, MCH 32.2 H, MCHC 34.4, RDW Std Deviation 55.6 H, RDW Coeff of Thomas 16.3 H, Plt Count 7 L*, MPV 9.9, Immature Gran % (Auto) 0.000, Neut % (Auto) 3.5 L, Lymph % (Auto) 78.6 H, [place] % (Auto) 17.9 H, Eos % (Auto) 0.0, Baso % (Auto) 0.0, Absolute Neuts (auto) 0.0 L, Absolute Lymphs (auto) 0.22 L, Nucleated RBC % 0, Differential Comment SCANNED, Diff Path Review March, Platelet Estimate MKD DEC, Hypochromasia 1+, Anisocytosis 1+, Microcytosis 1+ 01/15/22 06:00: Sodium 143, Potassium 3.6, Chloride 114 H, Carbon Dioxide 23.0, Anion Gap 6, BUN 20 H, Creatinine 1.19, Estim Creat Clear Calc 74.12, Est GFR (MDRD) Af Amer 82, Est GFR (MDRD) Non-Af 68, BUN/Creatinine Ratio 16.8, Glucose 89, Calcium 8.9 Microbiology 01/14/22 22:15 Blood Culture (Wb) - Left Hand Blood Culture - Preliminary 01/14/22 21:52 Blood Culture (Wb) - Chest Blood Culture - Preliminary 01/14/22 22:16 Mucosa - Nose Influenza Types A,B Direct FA (CLAUDIA) - Final 01/14/22 21:55 Interface Orders SARS-CoV-2 Antigen (Rapid) - Final Diagnostic Data Chest X-Ray 01/14/22 22:48 IMPRESSION: Bilateral lower lobe pneumonia. Electronically Signed: Dequan Van MD at 23:27 EST ,
--- NOTE | 2022-01-15 11:05 | CASEMGMT ---
RN CM IT SALES CONSULTANT CM to room to meet with patient for initial transition planning/care coordination assessment. RN SONJA introduced self and role at [facility]. Pt voices understanding and consents to assessment at this time. Pt resting in bed in no distress at this time. Pt is A/O at this time and answers all questions appropriately. Care providers, pharmacy, and demographics verified/updated at this time. PCP: Dr London Specialists: [facility]--Dr Clarke/Dr Swift Preferred Pharmacy: [facility] Retail Insurance: [facility] Prescription Benefit: Yes Living Will/HPOA: Has both. , Asya, is HPOA LNOK: , Asya Living Arrangements: Lives w/ and 19-yr-old son in one-story home w/2-3 steps to enter. Independent w/ADL's and IADL's until the past couple of days. Transportation: Pt states drives self and states no transportation concerns at this time. also drives DME: Denies using any DME and denies needs. HHC/SNF: No hx of either. No needs identified. Pt wishes to return home and states has no concerns with going home at time of discharge. CM to follow for any discharge planning/needs. Pt voices no concerns/needs at this time. Advised pt to ask for CM if any questions/concerns/needs arise. Voices understanding. PLAN: Home w/family support and discharge plans in place. Sherif LY RN, CM
--- NOTE | 2022-01-15 11:33 | ECHOD_ITS ---
Version 2 Reason For Study: Bacteremia Procedure This was a 2D Doppler, Color Flow transthoracic echocardiogram. Exam performed portable in patient room. Left Ventricle Normal LV size. Left ventricular systolic function is normal. The estimated ejection fraction is 55 %. No regional wall motion abnormalities noted. Right Ventricle Normal RV size. Normal systolic function. Atria Normal left atrium. Normal right atrium. Mitral Valve Normal mitral valve. Mild (1+) eccentric mitral valve insufficiency. Tricuspid Valve Normal tricuspid valve. Mild (1+) tricuspid valve insufficiency. Pulmonary artery systolic pressure is 40 mmHg. Aortic Valve Trisinus/trileaflet aortic valve. Mild (1+) aortic valve insufficiency. Pulmonic Valve Normal pulmonic valve. Mild (1+) pulmonic valve insufficiency. Great Vessels Mildly dilated aortic root. The pulmonary artery is normal size. Normal inferior vena cava. Pericardium/Pleural No pericardial effusion. MMode/2D Measurements & Calculations LVIDd: 4.6 cm IVSd: 0.97 cm Ao root diam: 3.9 cm LVIDs: 2.6 cm LVPWd: 1.0 cm RVDd: 3.5 cm FS: 43.0 % LAV(MOD-bp): 33.0 ml LVAd ap4: 29.7 cm2 LVAd ap2: 30.0 cm2 LAV(MOD-bp) Indexed: 16.5 ml/m2 LVLd ap4: 8.8 cm LVLd ap2: 9.0 cm LAV(MOD-sp2): 31.4 ml EDV(MOD-sp4): 82.1 ml EDV(MOD-sp2): 86.0 ml LAV(MOD-sp4): 34.8 ml EDV(sp4-el): 85.2 ml EDV(sp2-el): 84.6 ml LVAs ap4: 16.2 cm2 LVAs ap2: 18.1 cm2 LVLs ap4: 7.3 cm LVLs ap2: 7.9 cm ESV(MOD-sp4): 32.5 ml ESV(MOD-sp2): 36.8 ml ESV(sp4-el): 30.6 ml ESV(sp2-el): 35.3 ml EF(MOD-sp4): 60.4 % EF(MOD-sp2): 57.2 % EF(sp4-el): 64.1 % SV(MOD-sp4): 49.6 ml SV(MOD-sp2): 49.2 ml SV(sp4-el): 54.6 ml LA dimension(2D): 2.9 cm LA A4 area: 14.1 cm2 RA A4 area: 13.8 cm2 Doppler Measurements & Calculations MV E max rolo: 88.8 cm/sec Lat Peak E' Rolo: 14.5 cm/sec Med Peak E' Rolo: 9.4 cm/sec MV A max rolo: 76.7 cm/sec E/E' lat: 6.1 E/E' med: 9.5 MV E/A: 1.2 Ao V2 max: 159.7 cm/sec PA V2 max: 114.3 cm/sec TR max rolo: 303.1 cm/sec Ao max P.2 mmHg TR max P.8 mmHg ECHO/Echo Complete Interpretation Summary Mildly dilated aortic root. Normal LV size. Left ventricular systolic function is normal. The estimated ejection fraction is 55 %. Pulmonary artery systolic pressure is 40 mmHg. No Evidence of valvular vegetation noted Ordering Physician: Franc Barber Referring Physician: Christina London M.D. Performed By: Lubna Fraga RDCS
[2022-01-15 12:16] LABS: Pathologist Review Reviewed
[2022-01-15 12:16] LABS: Pathologist Review Reviewed
--- NOTE | 2022-01-15 12:37 | PCM.CONS.GEN ---
Assessment & Plan Assessment/Plan (1) H/O bone marrow transplant: (2) Fever and neutropenia: (3) Bilateral pneumonia: (4) Bacteremia associated with intravascular line: PLAN: Neutropenic fever with recent chemo, tunneled line in place, strep-like bacteremia, and pneumonia. On vanc/cefepime. Will repeat bcx and check TTE. On bactrim/vori/acyclovir for proph. Covid vaccine x3. Will follow, thank you HPI Consult Data Date of Consult: 01/15/22 HPI Narrative HPI Narrative: YOJANA ALONZO, is a 51 M with MDS, had allo SCT 11/2020, dx with AML, now back on chemo via R chest matos, last dose 4 days ago. On bactrim, vori, and acyclovir. No sick contacts, feeling fine, has had covid vaccine x3. Reports one day of fever, chills, shakes, not feeling well, some mild cough. No sputum. Some sores in mouth. No abd pain, no n/v/d. No issues with line. Came to ED, admitted on vanc/cefepime. Seen by heme. Feeling a little better. Full ROS performed and neg except as noted above. [facility] Medical History (Updated 01/15/22 @ 12:[address] Franc Barber MD) AML (acute myeloid leukemia) Home Medications acyclovir 400 mg PO BID 10/07/20 [History Last Taken Unknown] prednisone 5 mg tablet 30 mg PO DAILY tab 06/11/21 [History Last Taken Unknown] voriconazole 200 mg tablet 200 mg PO Q12H 06/11/21 [History Last Taken Unknown] ciprofloxacin HCl 500 mg PO BID 01/14/22 [History Last Taken Unknown] famotidine 20 mg PO BID 01/14/22 [History Last Taken Unknown] sulfamethoxazole-trimethoprim 1 tab PO MOWEFR 01/14/22 [History Last Taken Unknown] ursodiol 250 mg PO TID 01/14/22 [History Last Taken Unknown] cholecalciferol (vitamin D3) 50 mcg PO DAILY 01/15/22 [History Last Taken Unknown] Allergy/AdvReac Type Severity Reaction Status Date / Time No Known Allergies Allergy Verified 12/29/21 13:24 Family History (Updated 01/15/22 @ 00:[address] Tahir Salinas MD) Other Cancer Heart disease Surgical History Status post medial meniscal repair Social History Smoking Status: Never smoker Physical Exam Const alert and oriented x3 General Appearance: cooperative Exam Limitations: no limitations HEENT normocephalic and head/scalp atraumatic Eyes PERRL and EOMs intact bilaterally Eyes Narrative: no thrush. Some shallow lesions/blood in back of pharanx Neck supple and No nodes Resp Auscultation: rhonchi Cardio Rate: tachycardic GI soft to palpation, non-tender and non-distended Extremity no clubbing, cyanosis or edema Skin no rashes or lesions noted Skin Narrative: R check matos no inflammation Neuro CN's II-XII intact bilaterally Psych mental status grossly normal Lab / Micro Data Result Diagrams: 01/15/22 06:00 01/15/22 06:00 Labs: Laboratory Results - last 24 hr 01/14/22 21:52: Sodium 142, Potassium 3.9, Chloride 110 H, Carbon Dioxide 27.0, Anion Gap 5, BUN 21 H, Creatinine 1.11, Estim Creat Clear Calc 79.47, Est GFR (MDRD) Af Amer 89, Est GFR (MDRD) Non-Af 73, BUN/Creatinine Ratio 18.9, Glucose 109 H, Calcium 9.3, Total Bilirubin 0.40, AST 64 H, ALT 83 H, Alkaline Phosphatase 70, Total Creatine Kinase 46, Total Protein 5.8 L, Albumin 2.6 L, Globulin 3.2, Albumin/Globulin Ratio 0.8 L 01/14/22 21:52: WBC 0.5 L*, RBC 2.56 L, Hgb 8.4 L, Hct 24.0 L, MCV 93.8, MCH 32.8 H, MCHC 35.0, RDW Std Deviation 55.7 H, RDW Coeff of Thomas 16.2 H, Plt Count 17 L*, MPV 9.2, Immature Gran % (Auto) 0.000, Neut % (Auto) 1.9 L, Lymph % (Auto) 58.5 H, [place] % (Auto) 39.6 H, Eos % (Auto) 0.0, Baso % (Auto) 0.0, Absolute Neuts (auto) 0.0 L, Absolute Lymphs (auto) 0.31 L, Nucleated RBC % 0, Differential Comment SCANNED, Diff Path Review Reviewed 01/14/22 21:52: PT 13.1, INR 1.1, APTT 27.3 01/14/22 21:52: Lactic Acid 1.7 01/14/22 21:52: B-Natriuretic Peptide 61.2 01/14/22 21:52: Lactate Dehydrogenase 786 H 01/14/22 22:58: Direct Antiglob Test NEG w/POLYSPECIFIC 01/15/22 00:45: Urine Color Yellow, Urine Clarity Clear, Urine pH 8.0, Ur Specific [place] 1.010, Urine Protein Negative, Urine Glucose (UA) Normal, Urine Ketones Negative, Urine Occult Blood Negative, Urine Nitrite Negative, Urine Bilirubin Negative, Urine Urobilinogen Normal, Ur Leukocyte Esterase Negative, Urine RBC 0 SEEN, Urine WBC 0 SEEN, Ur Squamous Epith Cells 0 SEEN, Urine Bacteria RARE, Urine Mucus 0 SEEN 01/15/22 06:00: WBC 0.3 L*, RBC 2.27 L, Hgb 7.3 L, Hct 21.2 L, MCV 93.4, MCH 32.2 H, MCHC 34.4, RDW Std Deviation 55.6 H, RDW Coeff of Thomas 16.3 H, Plt Count 7 L*, MPV 9.9, Immature Gran % (Auto) 0.000, Neut % (Auto) 3.5 L, Lymph % (Auto) 78.6 H, [place] % (Auto) 17.9 H, Eos % (Auto) 0.0, Baso % (Auto) 0.0, Absolute Neuts (auto) 0.0 L, Absolute Lymphs (auto) 0.22 L, Nucleated RBC % 0, Differential Comment SCANNED, Diff Path Review Reviewed, Platelet Estimate MKD DEC, Hypochromasia 1+, Anisocytosis 1+, Microcytosis 1+ 01/15/22 06:00: Sodium 143, Potassium 3.6, Chloride 114 H, Carbon Dioxide 23.0, Anion Gap 6, BUN 20 H, Creatinine 1.19, Estim Creat Clear Calc 74.12, Est GFR (MDRD) Af Amer 82, Est GFR (MDRD) Non-Af 68, BUN/Creatinine Ratio 16.8, Glucose 89, Calcium 8.9 Micro: Microbiology 01/15/22 00:45 Urine, Clean Catch Urine Culture - Preliminary Culture exhibits no growth. 01/14/22 21:52 Blood Culture (Wb) - Chest Bacteria Detection (PCR) - Final 01/14/22 21:52 Blood Culture (Wb) - Chest Blood Culture - Preliminary 01/14/22 22:15 Blood Culture (Wb) - Left Hand Blood Culture - Preliminary 01/14/22 22:16 Mucosa - Nose Influenza Types A,B Direct FA (CLAUDIA) - Final 01/14/22 21:55 Interface Orders SARS-CoV-2 Antigen (Rapid) - Final Rhythm Strip Rhythm Strip: Sinus Tach Rate: 119 Ectopy: None Radiology Impression Chest X-Ray 01/14/22 22:48 IMPRESSION: Bilateral lower lobe pneumonia. Electronically Signed: Dequan Van MD at 23:27 EST ,
--- NOTE | 2022-01-15 15:21 | PCM.HOSP.N ---
Hospitalist Note Mr. Paz is a 51-year-old unfortunate white male with a history of MDS status post stem cell transplant in 2020 now with a diagnosis of AML who is undergoing chemo therapy via a right chest port who presents emergency department with neutropenic fever. He is on Bactrim, voriconazole, and acyclovir at baseline as prophylaxis at home and denies any known sick contacts. He was hemodynamically stable but pancytopenic on presentation and suffering from fevers, rigors, general malaise and a cough which he reports he has had chronically for couple months now. He was initially started on cefepime admitted to the medical floor. We did add vancomycin this morning and preliminary blood cultures are reporting out gram-positive cocci. ID and oncology have been consulted. I discussed the case with Dr. Swift and he states he really does not have anything to add to the case right now. He agreed with platelet transfusion and he will be given 2 packs of platelets today.. Dr. Tellez is on over the weekend if we need anything from a oncology standpoint. ID is also been consulted and agrees with continuing broad-spectrum antibiotics. A TTE has been ordered with gram-positive bacteremia to rule out any signs of endocarditis. The patient remains hemodynamically stable although appears ill.
[2022-01-16] VITALS (19 sets, daily range): BP systolic 123–147; BP diastolic 66–84; PULSE 84–112; RESP 20–24; TEMP 36.6–37.8; O2SAT 93–98
[2022-01-16] MEDS: Acetaminophen 325 MG Tablet 650 MG PO ×2 (04:31→13:52)
[2022-01-16] MEDS: 0.9% Normal Saline 1,000 ML 125 ML IV (04:31)
[2022-01-16 05:29] LABS: Absolute Lymphocyte Count 0.15 X10^3/uL (0.83-4.51); Hemoglobin 6.4 g/dL (13.0-16.5); Lymphocyte # 0.15 X10^3/ul (0.83-4.51); Lymphocyte % 71.4 % (19-41); Mean Corp Hgb Conc 33.7 g/dL (32-36); Mean Corpuscular Hgb 32.2 pg (27.0-32.0); Mean Corpuscular Volume 95.5 fL (80-94); Monocyte# 0.05 X10^3/uL; Monocyte% 23.8 % (0-10); NRBC Flagged by Analyzer 0 % (0-5); Neutrophil # 0.01 X10^3/uL (2.7-7.7); Neutrophil % 4.8 % (47-70); POSITIVE COUNT YES; POSITIVE DIFFERENTIAL YES; POSITIVE MORPHOLOGY YES; RBC Distribution Width CV 16.5 % (11.6-14.6); RBC Distribution Width SD 57.3 fl (35.1-43.9); Red Blood Count 1.99 M/mm3 (4.6-6.2)
[2022-01-16 05:41] LABS: Differential Indicated SCAN CRITERIA MET
[2022-01-16 05:42] LABS: Platelet Count 2 K/mm3 (150-450); White Blood Count 0.2 K/mm3 (4.4-11.0)
[2022-01-16 06:09] LABS: ALB/GLOB Ratio 0.6 RATIO (0.9-2.4); AST(SGOT) 67 U/L (15-37); Alanine Aminotransfer ALT/SGPT 63 U/L (16-61); Albumin, Serum 2.1 g/dL (3.2-5.0); Alkaline Phosphatase 59 U/L (45-117); Anion Gap 4 (5-15); BUN 19 mg/dL (7-18); Calcium,Total 8.8 mg/dL (8.5-10.1); Chloride 114 mmol/L (98-107); Creatinine, Serum 0.95 mg/dL (0.70-1.30); EST Glomerular Filtration Rate 88 mL/min (>60); Est Glom Filt Rate - Afr Amer 106 mL/min (>60); Estimated Creatinine Clearance 92.85 ml/min; Globulin 3.4 g/dL (2.2-4.2); Glucose 93 mg/dL (74-106); Potassium 3.5 mmol/L (3.5-5.1); Protein, Total 5.5 g/dL (6.4-8.2); Sodium Level 143 mmol/L (136-145)
[2022-01-16] MEDS: 0.9% Saline Lock 10 ML Syringe IV ×6 (06:13→22:05)
[2022-01-16] MEDS: Hydrocortisone Sod Succinate 100 MG/2 ML Vial 50 MG IV ×3 (06:14→22:05)
[2022-01-16] MEDS: Ursodiol 250 MG Tablet PO ×3 (06:14→22:11)
[2022-01-16] MEDS: DiphenhydrAMINE 50 MG/ML Syringe 25 MG IV (06:21)
[2022-01-16 06:54] LABS: Differential Comment SCANNED; Platelet Estimate MKD DEC (ADEQ)
[2022-01-16] MEDS: Furosemide 20 MG/2 ML VIAL IV ×2 (08:57→22:05)
[2022-01-16] MEDS: Famotidine 20 MG Tablet PO ×2 (09:56→22:14)
[2022-01-16] MEDS: Acyclovir 200 MG Capsule 400 MG PO ×2 (09:56→22:12)
[2022-01-16] MEDS: Voriconazole 200 MG Tablet PO ×2 (11:25→22:12)
--- NOTE | 2022-01-16 11:37 | PN.HOSP_ITS ---
Subjective Subjective short of breath. mouth is dry. coughing up some blood. Objective Data Objective Data Vital Signs: Vital Signs Temp Pulse Resp BP Pulse Ox 36.6 C 97 22 H 136/76 H 97 01/16/22 11:34 01/16/22 11:34 01/16/22 11:34 01/16/22 11:34 01/16/22 11:34 Oxygen Flow Rate (L/min) 3 Oxygen Delivery Method Room Air Weight: 83 kg Body Mass Index (BMI) 26.2 Intake & Output: Intake and Output for Last 24 Hours 01/14/22 01/15/22 01/16/22 23:59 23:59 23:59 Intake Total 100 / 100 4614.58 / 4614.58 2897.92 / 2897.92 Output Total 3250 / 3250 Balance 100 / 100 4614.58 / 4214.58 -352.08 / -352.08 Lab / Micro Data Result Diagrams: 01/16/22 04:33 01/16/22 04:33 Labs: Laboratory Results - last 24 hr 01/14/22 21:52: Diff Path Review Reviewed 01/14/22 22:58: Blood Type A POSITIVE, Antibody Screen NEGATIVE, Crossmatch See Detail 01/15/22 06:00: Diff Path Review Reviewed 01/16/22 04:33: WBC 0.2 L*, RBC 1.99 L, Hgb 6.4 L, Hct 19.0 L, MCV 95.5 H, MCH 32.2 H, MCHC 33.7, RDW Std Deviation 57.3 H, RDW Coeff of Thomas 16.5 H, Plt Count 2 L*, MPV TNP, Immature Gran % (Auto) 0.000, Neut % (Auto) 4.8 L, Lymph % (Auto) 71.4 H, [place] % (Auto) 23.8 H, Eos % (Auto) 0.0, Baso % (Auto) 0.0, Absolute Neuts (auto) 0.0 L, Absolute Lymphs (auto) 0.15 L, Nucleated RBC % 0, Differential Comment SCANNED, Diff Path Review March, Platelet Estimate MKD 01/16/22 04:33: Sodium 143, Potassium 3.5, Chloride 114 H, Carbon Dioxide 25.0, Anion Gap 4 L, BUN 19 H, Creatinine 0.95, Estim Creat Clear Calc 92.85, Est GFR (MDRD) Af Amer 106, Est GFR (MDRD) Non-Af 88, BUN/Creatinine Ratio 20.0, Glucose 93, Calcium 8.8, Total Bilirubin 0.50, AST 67 H, ALT 63 H, Alkaline Phosphatase 59, Total Protein 5.5 L, Albumin 2.1 L, Globulin 3.4, Albumin/Globulin Ratio 0.6 L Micro: Microbiology 01/14/22 22:15 Blood Culture (Wb) - Left Hand Blood Culture - Preliminary 01/15/22 00:45 Urine, Clean Catch Urine Culture - Preliminary Culture exhibits no growth. 01/14/22 21:52 Blood Culture (Wb) - Chest Bacteria Detection (PCR) - Final 01/14/22 21:52 Blood Culture (Wb) - Chest Blood Culture - Preliminary 01/14/22 22:16 Mucosa - Nose Influenza Types A,B Direct FA (CLAUDIA) - Final 01/14/22 21:55 Interface Orders SARS-CoV-2 Antigen (Rapid) - Final Radiography Diagnostic Testing: Radiology Impression Echocardiogram 01/15/22 11:33 Interpretation Summary Mildly dilated aortic root. Normal LV size. Left ventricular systolic function is normal. The estimated ejection fraction is 55 %. Pulmonary artery systolic pressure is 40 mmHg. No Evidence of valvular vegetation noted Ordering Physician: Franc Barber Referring Physician: Christina London M.D. Performed By: Lubna Fraga RDCS Rhythm Strip Rhythm Strip: Sinus Tach Rate: 119 Ectopy: None Physical Exam Const alert and no apparent distress HEENT HEENT Narrative: MMdry. Blood on posterior pharynx. Resp normal respiratory effort and no retractions Resp Narrative: bibasilar crackles. Cardio regular rate, regular rhythm, S1 normal heart sound and S2 normal heart sound GI normal to inspection, nondistended, normoactive bowel sounds and soft to palpation Extremity normal to inspection Skin Skin Narrative: Bruising Neuro Sensorium / Orientation: awake and alert Psych affect normal Assessment & Plan Assessment/Plan (1) AML (acute myeloid leukemia): QUALIFIERS: Leukemia Active/Remission status: without remission Qualified Code(s): C92.00 - Acute myeloblastic leukemia, not having achieved remission (2) Bacteremia associated with intravascular line: QUALIFIERS: Encounter type: initial encounter Qualified Code(s): T82.7XXA - Infection and inflammatory reaction due to other cardiac and vascular devices, implants and grafts, initial encounter; R78.81 - Bacteremia (3) Fever and neutropenia: (4) Bilateral pneumonia: QUALIFIERS: Pneumonia type: due to unspecified organism Lung location: lower lobe of lung Qualified Code(s): J18.9 - Pneumonia, unspecified organism (5) Acute blood loss anemia: (6) Thrombocytopenia: PLAN: 1. Bacteremia Gram-positive cocci in chains on blood culture from third, repeat blood cultures pending On vancomycin 2D echocardiogram did not show any vegetation. If persistently bacteremic, consider BRITNEY 2. Pneumonia Unclear type but given his bacteremia favoring this being streptococcal Continue with broad-spectrum antibiotics with cefepime and vancomycin 3. Neutropenic fever Secondary to above Likely due to salvage therapy for AML. 4. Acute blood loss anemia Ordered 2 units packed red blood cells today Monitor 5. Thrombocytopenia Informed that patient had platelets run through the pump which likely compromise at those platelets. Additional bags been ordered. We will follow up and transfuse as necessary. Patient with bleeding the back of his throat likely complicated by the patient's profound thrombo-cytopenia. 6. VTE prophylaxis: Not indicated given the profound thrombocytopenia Charges/Coding Visit Charges Inpatient E&M: 04083 [facility] Hosp L3
[2022-01-16 13:55] LABS: Bedside Glucose 143 mg/dL (74-106)
[2022-01-16 20:30] LABS: Vancomycin, Trough Level 10.3 ug/mL (5.0-15.0)
--- NOTE | 2022-01-16 20:55 | PHA.PHARE_ITS ---
Consult Pharmacy has been consulted to manage selected antiobiotic: Vancomycin Type of Consult: Follow-up Suspected Infection: Pneumonia Prior Doses of Antibiotics Received/Current Regimen: Medications Vancomycin HCl 1,750 mg/ (Sodium Chloride) 535 mls @ 250 mls/hr IV Q12H AMADOR Vancomycin HCl 1,250 mg/ (Sodium Chloride) 275 mls @ 167 mls/hr IV Q12H AMADOR Stop: 01/16/22 22:00 Last Admin: 01/16/22 19:53 Dose: 167 mls/hr Documented by: Labs: Sodium 143 mmol/L (136-145) 01/16/22 04:33 Potassium 3.5 mmol/L (3.5-5.1) 01/16/22 04:33 Chloride 114 mmol/L (98-107) H 01/16/22 04:33 Carbon Dioxide 25.0 mmol/L (21.0-32.0) 01/16/22 04:33 Anion Gap 4 (5-15) L 01/16/22 04:33 BUN 19 mg/dL (7-18) H 01/16/22 04:33 Creatinine 0.95 mg/dL (0.70-1.30) 01/16/22 04:33 Est GFR (MDRD) Af Amer 106 mL/min (>60) 01/16/22 04:33 Est GFR (MDRD) Non-Af 88 mL/min (>60) 01/16/22 04:33 BUN/Creatinine Ratio 20.0 RATIO (10-20) 01/16/22 04:33 Glucose 93 mg/dL (74-106) 01/16/22 04:33 Vancomycin Trough 10.3 ug/mL (5.0-15.0) 01/16/22 19:24 Microbiology: Microbiology 01/14/22 22:15 Blood Culture (Wb) - Left Hand Blood Culture - Preliminary Alpha Hemolytic Streptococcus 01/14/22 21:52 Blood Culture (Wb) - Chest Bacteria Detection (PCR) - Final 01/14/22 21:52 Blood Culture (Wb) - Chest Blood Culture - Preliminary Alpha Hemolytic Streptococcus 01/15/22 00:45 Urine, Clean Catch Urine Culture - Preliminary Culture exhibits no growth. 01/14/22 22:16 Mucosa - Nose Influenza Types A,B Direct FA (CLAUDIA) - Final 01/14/22 21:55 Interface Orders SARS-CoV-2 Antigen (Rapid) - Final Weight used for dosin kg Estimated Creatinine Clearance: 93 Goal Trough: 15-20 mcg/mL Pharmacy Plan for Drug Dosing: Vancomycin trough drawn 10.3hrs after dose was 10.3, below target range of 15- 20. Will increase dose to 1750mg q12h, and re-draw a trough prior to 4th dose of new regimen. Pharmacy Service will continue to monitor and adjust dosing as required. Follow-Up Labs: Trough Vancomycin Labs to be done on [date and time ordered]: 01/18/22 @1183
[2022-01-16 21:10] LABS: Absolute Lymphocyte Count 0.17 X10^3/uL (0.83-4.51); Hematocrit 26.4 % (40-54); Hemoglobin 9.2 g/dL (13.0-16.5); Lymphocyte # 0.17 X10^3/ul (0.83-4.51); Lymphocyte % 70.8 % (19-41); Mean Corp Hgb Conc 34.8 g/dL (32-36); Mean Corpuscular Hgb 32.3 pg (27.0-32.0); Mean Corpuscular Volume 92.6 fL (80-94); Monocyte# 0.06 X10^3/uL; NRBC Flagged by Analyzer 0 % (0-5); Neutrophil # 0.01 X10^3/uL (2.7-7.7); Neutrophil % 4.2 % (47-70); POSITIVE COUNT YES; POSITIVE DIFFERENTIAL YES; POSITIVE MORPHOLOGY YES; Platelet Count 2 K/mm3 (150-450); RBC Distribution Width CV 15.3 % (11.6-14.6); RBC Distribution Width SD 51.8 fl (35.1-43.9); Red Blood Count 2.85 M/mm3 (4.6-6.2); White Blood Count 0.2 K/mm3 (4.4-11.0)
[2022-01-16 21:18] LABS: Differential Indicated SCAN CRITERIA MET
[2022-01-16 21:37] LABS: Platelet Estimate MKD DEC (ADEQ)
[2022-01-17] VITALS (7 sets, daily range): BP systolic 127–159; BP diastolic 80–92; PULSE 82–105; RESP 26–30; TEMP 36.6–37.2; O2SAT 94–97
[2022-01-17] MEDS: 0.9% Saline Lock 10 ML Syringe IV ×7 (05:30→16:04)
[2022-01-17] MEDS: Ursodiol 250 MG Tablet PO ×2 (05:32→13:27)
[2022-01-17] MEDS: Hydrocortisone Sod Succinate 100 MG/2 ML Vial 50 MG IV (05:36)
[2022-01-17 06:01] LABS: Absolute Lymphocyte Count 0.17 X10^3/uL (0.83-4.51); Hematocrit 25.2 % (40-54); Hemoglobin 9.1 g/dL (13.0-16.5); Lymphocyte # 0.17 X10^3/ul (0.83-4.51); Lymphocyte % 60.7 % (19-41); Mean Corp Hgb Conc 36.1 g/dL (32-36); Mean Corpuscular Hgb 32.4 pg (27.0-32.0); Mean Corpuscular Volume 89.7 fL (80-94); Monocyte% 35.7 % (0-10); NRBC Flagged by Analyzer 14.3 % (0-5); Neutrophil # 0.01 X10^3/uL (2.7-7.7); Neutrophil % 3.6 % (47-70); POSITIVE COUNT YES; POSITIVE DIFFERENTIAL YES; POSITIVE MORPHOLOGY YES; Platelet Count 2 K/mm3 (150-450); RBC Distribution Width CV 15.3 % (11.6-14.6); Red Blood Count 2.81 M/mm3 (4.6-6.2); White Blood Count 0.3 K/mm3 (4.4-11.0)
[2022-01-17 06:03] LABS: Differential Indicated SCAN CRITERIA MET
[2022-01-17 06:26] LABS: ALB/GLOB Ratio 0.6 RATIO (0.9-2.4); AST(SGOT) 66 U/L (15-37); Alanine Aminotransfer ALT/SGPT 59 U/L (16-61); Albumin, Serum 2.2 g/dL (3.2-5.0); Alkaline Phosphatase 64 U/L (45-117); Anion Gap 4 (5-15); BUN 25 mg/dL (7-18); BUN/Creat Ratio 24.5 RATIO (10-20); Calcium,Total 9.4 mg/dL (8.5-10.1); Chloride 110 mmol/L (98-107); Creatinine, Serum 1.02 mg/dL (0.70-1.30); EST Glomerular Filtration Rate 81 mL/min (>60); Est Glom Filt Rate - Afr Amer 98 mL/min (>60); Estimated Creatinine Clearance 86.48 ml/min; Globulin 3.8 g/dL (2.2-4.2); Glucose 115 mg/dL (74-106); Potassium 3.2 mmol/L (3.5-5.1); Sodium Level 141 mmol/L (136-145)
--- NOTE | 2022-01-17 07:00 | RAD_ITS ---
STUDY: X-RAY CHEST REASON FOR EXAM: Male, 51 years old. fluid overload TECHNIQUE: Single AP portable view of the chest. COMPARISON: 01/14/2022 FINDINGS: Right internal jugular deep venous line which is unchanged. No change in alveolar opacity in the lower right lung consistent with right middle lobe pneumonia. There is no demonstrated pleural abnormality. Normal size heart. Normal mediastinum and gita. Normal visualized pulmonary arteries. Normal visualized aortic arch and descending thoracic aorta. Normal visualized thoracic spine. Normal visualized ribs, clavicles, and shoulders. There is no demonstrated abnormality of the visualized soft tissue structures of the upper abdomen. RAD/Chest 1 View (Portable) IMPRESSION: No change from 01/14/2022. Electronically Signed: Bharath Collins MD at 7:34 EST ,
[2022-01-17] MEDS: Acetaminophen 325 MG Tablet 650 MG PO ×2 (08:03→13:37)
--- NOTE | 2022-01-17 09:12 | PN.HOSP_ITS ---
Subjective Subjective Coughing up some blood. Increased dyspnea and increased oxygen requirements overnight. Objective Data Objective Data Vital Signs: Vital Signs Temp Pulse Resp BP Pulse Ox 36.9 C 95 28 H 132/85 H 97 01/17/22 07:54 01/17/22 07:54 01/17/22 07:54 01/17/22 07:54 01/17/22 07:54 Oxygen Flow Rate (L/min) 6 Oxygen Delivery Method Nasal Cannula Weight: 83 kg Body Mass Index (BMI) 26.2 Intake & Output: Intake and Output for Last 24 Hours 01/15/22 01/16/22 01/17/22 23:59 23:59 23:59 Intake Total 4614.58 / 4614.58 4192.42 / 4192.42 100 / 100 Output Total 3650 / 4075 875 / 875 Balance 4614.58 / 4214.58 542.42 / 117.42 -775 / -775 Lab / Micro Data Result Diagrams: 01/17/22 05:24 01/17/22 05:24 Labs: Laboratory Results - last 24 hr 01/14/22 22:58: Blood Type A POSITIVE, Antibody Screen NEGATIVE, Crossmatch See Detail 01/16/22 13:49: POC Glucose 143 H 01/16/22 19:24: Vancomycin Trough 10.3 01/16/22 20:59: WBC 0.2 L*, RBC 2.85 L, Hgb 9.2 L, Hct 26.4 L, MCV 92.6, MCH 32.3 H, MCHC 34.8, RDW Std Deviation 51.8 H, RDW Coeff of Thomas 15.3 H, Plt Count 2 L*, Immature Gran % (Auto) 0.000, Neut % (Auto) 4.2 L, Lymph % (Auto) 70.8 H, [place] % (Auto) 25.0 H, Eos % (Auto) 0.0, Baso % (Auto) 0.0, Absolute Neuts (auto) 0.0 L, Absolute Lymphs (auto) 0.17 L, Nucleated RBC % 0, Diff Path Review March, Platelet Estimate MKD 01/17/22 05:24: WBC 0.3 L*, RBC 2.81 L, Hgb 9.1 L, Hct 25.2 L, MCV 89.7, MCH 32.4 H, MCHC 36.1 H, RDW Std Deviation 50.0 H, RDW Coeff of Thomas 15.3 H, Plt Count 2 L*, Immature Gran % (Auto) 0.000, Neut % (Auto) 3.6 L, Lymph % (Auto) 60.7 H, [place] % (Auto) 35.7 H, Eos % (Auto) 0.0, Baso % (Auto) 0.0, Absolute Neuts (auto) 0.0 L, Absolute Lymphs (auto) 0.17 L, Nucleated RBC % 14.3 H, Diff Path Review March01/17/22 05:24: Sodium 141, Potassium 3.2 L, Chloride 110 H, Carbon Dioxide 27.0, Anion Gap 4 L, BUN 25 H, Creatinine 1.02, Estim Creat Clear Calc 86.48, Est GFR (MDRD) Af Amer 98, Est GFR (MDRD) Non-Af 81, BUN/Creatinine Ratio 24.5 H , Glucose 115 H, Calcium 9.4, Total Bilirubin 0.70, AST 66 H, ALT 59, Alkaline Phosphatase 64, Total Protein 6.0 L, Albumin 2.2 L, Globulin 3.8, Albumin/Globulin Ratio 0.6 L Micro: Microbiology 01/15/22 00:45 Urine, Clean Catch Urine Culture - Final Culture exhibits no growth. 01/14/22 21:52 Blood Culture (Wb) - Chest Bacteria Detection (PCR) - Final 01/14/22 21:52 Blood Culture (Wb) - Chest Blood Culture - Final Strep salivarius sp salivarius 01/14/22 22:15 Blood Culture (Wb) - Left Hand Blood Culture - Final Strep salivarius sp salivarius 01/14/22 22:16 Mucosa - Nose Influenza Types A,B Direct FA (CLAUDIA) - Final 01/14/22 21:55 Interface Orders SARS-CoV-2 Antigen (Rapid) - Final Radiography Diagnostic Testing: Radiology Impression Chest X-Ray 01/17/22 07:00 IMPRESSION: No change from 01/14/2022. Electronically Signed: Bharath Collins MD at 7:34 EST , Rhythm Strip Rhythm Strip: Sinus Tach Rate: 119 Ectopy: None Physical Exam Const alert and no apparent distress Constitutional Narrative: Up in bed eating yogurt. HEENT head/scalp atraumatic Head and Scalp: normocephalic Resp normal respiratory effort and no retractions Resp Narrative: Bibasilar crackles, right greater than left. Cardio regular rate, regular rhythm, S1 normal heart sound and S2 normal heart sound GI normal to inspection, nondistended, normoactive bowel sounds, soft to palpation, non-tender and non-distended Extremity normal to inspection Neuro Sensorium / Orientation: awake and alert Assessment & Plan Assessment/Plan (1) Thrombocytopenia: (2) Acute blood loss anemia: (3) AML (acute myeloid leukemia): QUALIFIERS: Leukemia Active/Remission status: without remission Qualified Code(s): C92.00 - Acute myeloblastic leukemia, not having achieved remission (4) Bilateral pneumonia: QUALIFIERS: Pneumonia type: due to unspecified organism Lung location: lower lobe of lung Qualified Code(s): J18.9 - Pneumonia, unspecified organism (5) Fever and neutropenia: (6) Bacteremia due to Streptococcus: PLAN: 1. Bacteremia Strep salivarius in chains on blood culture from third, repeat blood cultures pending Repeat On vancomycin 2D echocardiogram did not show any vegetation. If persistently bacteremic, consider BRITNEY 2. Pneumonia Unclear type but given his bacteremia favoring this being streptococcal Continue with broad-spectrum antibiotics with cefepime and vancomycin Unclear if the worsening is actual infectious pneumonia versus pulmonary vascular congestion versus diffuse pulmonary hemorrhage. 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 Consult pulmonology. I have a page out to Dr. Tellez to see what his recommendations are. Given this patient's history of [id number] disease. 3. Neutropenic fever Secondary to above Likely due to salvage therapy for AML. 4. Acute blood loss anemia Improved status post 2 units packed red blood cells today Monitor 5. Thrombocytopenia Informed that patient had platelets run through the pump which likely compromise at those platelets. Additional bags been ordered. Still very low despite platelet transfusion. Transfuse another 2 units of platelets 6. VTE prophylaxis: Not indicated given the profound thrombocytopenia Charges/Coding Visit Charges Inpatient E&M: 17445 [facility] Hosp L3
--- NOTE | 2022-01-17 09:54 | CT_ITS ---
STUDY: CT CHEST WITHOUT CONTRAST REASON FOR EXAM: Male, 51 years old. Bilateral infiltrates, hypoxia RADIATION DOSAGE (If Supplied By Facility): CTDIvol = ( 12.51 ) mGy, DLP = ( 462.59 ) mGycm TECHNIQUE: Transaxial imaging was performed without the administration of intravenous contrast material. Individualized dose optimization techniques were used for this CT. COMPARISON: Chest x-ray earlier today FINDINGS: Tunneled right internal jugular catheter. Bilateral patchy groundglass and alveolar opacities consistent with moderate subsegmental atelectasis or pneumonitis. This is most confluent in the lower lobes. There is no demonstrated pleural abnormality. There is a small pericardial effusion. There are calcifications of the coronary arteries. Normal mediastinum. Normal hilar regions. Normal unenhanced pulmonary arteries. Normal aorta arch and descending thoracic aorta. Normal osseous structures. There is no demonstrated abnormality of the visualized upper abdomen. CT/Chest without Contrast IMPRESSION: Moderate bilateral subsegmental atelectasis or pneumonitis. Commonly reported imaging features of Covid 19 pneumonia are present. Other processes such as influenza pneumonia and organizing pneumonia as can be seen in drug toxicity and connective tissue disease can cause a similar imaging pattern. Electronically Signed: Bharath Collins MD at 11:27 EST ,
--- NOTE | 2022-01-17 09:55 | EX.PCM.CONCC ---
Assessment & Plan Assessment/Plan (1) Thrombocytopenia: (2) Acute blood loss anemia: (3) AML (acute myeloid leukemia): QUALIFIERS: Leukemia Active/Remission status: without remission Qualified Code(s): C92.00 - Acute myeloblastic leukemia, not having achieved remission (4) Bilateral pneumonia: QUALIFIERS: Pneumonia type: due to unspecified organism Lung location: lower lobe of lung Qualified Code(s): J18.9 - Pneumonia, unspecified organism (5) Fever and neutropenia: (6) Bacteremia due to Streptococcus: PLAN: RECOMMENDATIONS: 1. Add humidification to nasal cannula 2. Transition from Solu-Cortef to Solu-Medrol 3. Await oncology recommendations 4. Obtain CT chest 5. Hold on aggressive diuresis 6. Platelet transfusions per oncology 7. No bronchoscopy at this time IMPRESSIONS: 1. Acute hypoxic respiratory insufficiency with hemoptysis Unclear etiology at this time. Patient does appear to have bilateral lower lobe infiltrates. This may be suggestive of an infectious process versus diffuse alveolar hemorrhage versus congestive heart failure. Cannot rule out an element of lymphangitic spread from secondary malignancy. Patient does have multiple mouth ulcers that could have also led to hemoptysis. This does not appear to be Shivam Rico at this time, but will need to be followed closely. Patient does not have a significant pulmonary history, but is unaware of the chemotherapy that he takes. Patient was on prednisone at baseline, but was transitioned to Solu-Cortef. If siglw-[id number] is a concern, high-dose Solu-Medrol (1 g/day) would likely be indicated. Await oncology recommendations. Will obtain a CT scan of the chest to evaluate for possible cavitary process versus lymphangitic spread versus alveolar infiltrates versus GVD. Patient continues to progress despite broad-spectrum antibiotics, but vancomycin levels appear to be at the lower level. Patient appears clinically dry, so would not aggressively diurese. 2. Acute blood loss anemia/thrombocytopenia/AML/recent chemotherapy Complicates care, management, recovery and prognosis. Patient does not have any hypotension at this time and blood counts are acceptable, so PRBCs are not indicated. Defer to oncology on platelet transfusions. 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 Patient had taken Benadryl prior to presentation and reports his last chemotherapy through [facility] was on the Tuesday prior to presentation. Patient had had low neutrophils at that point. Patient does have a history of DVT in the past, but was taken off of Eliquis secondary to thrombocytopenia. Patient is currently on suppressive therapy with azithromycin and voriconazole. Patient does take prednisone at baseline. In the ER, patient was febrile to 102.3 ?F, tachycardic at 145 bpm and hypertensive. At that time, patient was noted to be 93% on room air. Laboratory work-up showed a white blood cell count of 0.5 with 1.9% neutrophils, normal coagulation studies and chemistries. LFTs were slightly elevated. Lactate was within normal limits, along with BNP. LDH was elevated at 786. Chest x-ray showed bilateral lower lobe infiltrates and EKG confirmed sinus tachycardia. Patient was admitted to the floor with consultations placed to oncology and infectious disease. Over the last 24 hours, patient has developed hemoptysis and worsening hypoxia, so a pulmonary consult was obtained. Patient reportedly has developed mouth sores over the course of his hospitalization. Patient is also reporting more petechiae. Patient overall feels subjectively unchanged compared to previous. Patient states that over the last 24 hours he has had a hemoptysis. Patient stated his first episode was more of a darrell color, but the second episode was bright red. Patient stated this was about the size of a quarter. Patient denies any current chest pain, but does feel more short of breath with moving around. Patient has not required supplemental oxygen previously. Patient has not been seen by weaving loom operator previously. Patient denies any current inhalers, but has been on steroid therapy secondary to a reported history of bozdb-zyydep-oreo disease. Patient is not reporting any epistaxis, but has had some sores develop in his mouth. Patient does report a sore throat, but attributes this to his chemotherapy. Patient reports he has been compliant with his suppressive therapy. Review of systems otherwise negative from a constitutional, HEENT, respiratory, cardiovascular, GI, genitourinary, musculoskeletal, skin, neurologic, psychiatric and hematologic system unless stated above. [facility] Medical History AML (acute myeloid leukemia) Home Medications acyclovir 400 mg PO BID 10/07/20 [History Last Taken Unknown] prednisone 5 mg tablet 30 mg PO DAILY tab 06/11/21 [History Last Taken Unknown] voriconazole 200 mg tablet 200 mg PO Q12H 06/11/21 [History Last Taken Unknown] ciprofloxacin HCl 500 mg PO BID 01/14/22 [History Last Taken Unknown] famotidine 20 mg PO BID 01/14/22 [History Last Taken Unknown] sulfamethoxazole-trimethoprim 1 tab PO MOWEFR 01/14/22 [History Last Taken Unknown] ursodiol 250 mg PO TID 01/14/22 [History Last Taken Unknown] cholecalciferol (vitamin D3) 50 mcg PO DAILY 01/15/22 [History Last Taken Unknown] Allergy/AdvReac Type Severity Reaction Status Date / Time No Known Allergies Allergy Verified 12/29/21 13:24 Family History Other Cancer Heart disease Surgical History Status post medial meniscal repair Social History Smoking Status: Never smoker ROS ROS Narrative See HPI Physical Exam Const alert and no apparent distress General Appearance: frail and appears older than stated age Nutritional Appearance: overweight HEENT head/scalp atraumatic HEENT Narrative: Nasal cannula in place Head and Scalp: normocephalic Mouth: dry mucous membranes, lip abnormal lesion (Multiple superficial ulcerations with adherent clot) and lesions Eyes PERRL, EOMs intact bilaterally, conjunctivae normal and no scleral icterus Eyes Narrative: Slight scleral injection noted Chest Chest Narrative: Right sided chest port Chest: symmetrical chest wall rise; Negative for crepitus Resp normal respiratory effort and no retractions Auscultation: rales bilateral base; Negative for rhonchi, wheezes or tactile fremitus present Percussion: Negative for dullness Cardio regular rate, regular rhythm, S1 normal heart sound, S2 normal heart sound, no murmurs, no rub and no gallops GI normal to inspection, nondistended, normoactive bowel sounds, soft to palpation, non-tender and non-distended Extremity normal to inspection Skin Skin Narrative: Ecchymosis noted around port site, but no surrounding erythema, exudate or fluctuance General Skin Exam: petechiae Neuro Sensorium / Orientation: awake and alert Lab / Micro Data Result Diagrams: 01/17/22 05:24 01/17/22 05:24 Labs: Laboratory Results - last 24 hr 01/14/22 22:58: Blood Type A POSITIVE, Antibody Screen NEGATIVE, Crossmatch See Detail 01/16/22 13:49: POC Glucose 143 H 01/16/22 19:24: Vancomycin Trough 10.3 01/16/22 20:59: WBC 0.2 L*, RBC 2.85 L, Hgb 9.2 L, Hct 26.4 L, MCV 92.6, MCH 32.3 H, MCHC 34.8, RDW Std Deviation 51.8 H, RDW Coeff of Thomas 15.3 H, Plt Count 2 L*, Immature Gran % (Auto) 0.000, Neut % (Auto) 4.2 L, Lymph % (Auto) 70.8 H, [place] % (Auto) 25.0 H, Eos % (Auto) 0.0, Baso % (Auto) 0.0, Absolute Neuts (auto) 0.0 L, Absolute Lymphs (auto) 0.17 L, Nucleated RBC % 0, Diff Path Review March macarena, Platelet Estimate MKD 01/17/22 05:24: WBC 0.3 L*, RBC 2.81 L, Hgb 9.1 L, Hct 25.2 L, MCV 89.7, MCH 32.4 H, MCHC 36.1 H, RDW Std Deviation 50.0 H, RDW Coeff of Thomas 15.3 H, Plt Count 2 L*, Immature Gran % (Auto) 0.000, Neut % (Auto) 3.6 L, Lymph % (Auto) 60.7 H, [place] % (Auto) 35.7 H, Eos % (Auto) 0.0, Baso % (Auto) 0.0, Absolute Neuts (auto) 0.0 L, Absolute Lymphs (auto) 0.17 L, Nucleated RBC % 14.3 H, Diff Path Review Tana fiore 01/17/22 05:24: Sodium 141, Potassium 3.2 L, Chloride 110 H, Carbon Dioxide 27.0, Anion Gap 4 L, BUN 25 H, Creatinine 1.02, Estim Creat Clear Calc 86.48, Est GFR (MDRD) Af Amer 98, Est GFR (MDRD) Non-Af 81, BUN/Creatinine Ratio 24.5 H, Glucose 115 H, Calcium 9.4, Total Bilirubin 0.70, AST 66 H, ALT 59, Alkaline Phosphatase 64, Total Protein 6.0 L, Albumin 2.2 L, Globulin 3.8, Albumin/Globulin Ratio 0.6 L Micro: Microbiology 01/15/22 13:07 Blood Culture (Wb) - Anticubital Right Blood Culture - Preliminary 01/15/22 00:45 Urine, Clean Catch Urine Culture - Final Culture exhibits no growth. 01/14/22 21:52 Blood Culture (Wb) - Chest Bacteria Detection (PCR) - Final 01/14/22 21:52 Blood Culture (Wb) - Chest Blood Culture - Final Strep salivarius sp salivarius 01/14/22 22:15 Blood Culture (Wb) - Left Hand Blood Culture - Final Strep salivarius sp salivarius Rhythm Strip Rhythm Strip: Sinus Tach Rate: 119 Ectopy: None Radiology Impression Chest X-Ray 01/17/22 07:00 IMPRESSION: No change from 01/14/2022. Electronically Signed: Bharath Collins MD at 7:34 EST , Charges/Coding Visit Charges Inpatient E&M: 14084 Init Hosp L3
[2022-01-17] MEDS: Voriconazole 200 MG Tablet PO (11:41)
[2022-01-17] MEDS: Acyclovir 200 MG Capsule 400 MG PO (11:46)
[2022-01-17] MEDS: Famotidine 20 MG Tablet PO (11:46)
[2022-01-17] MEDS: DiphenhydrAMINE 50 MG/ML Syringe 25 MG IV (14:17)
--- NOTE | 2022-01-17 15:34 | DS.PCM_ITS ---
Providers Date of Admission: 01/15/22 Primary Care Physician: Dr. Christina London DO Consultations 01/15/22 01:21 Consult: Oncology/Hematology Routine Consulting Provider: Maxwell Swift Reason for Consult: neutropenic fever EMERGENT Consult: No Notified: Yes Date Notified: 01/15/22 Time Notified: 06:54 Method of Notification: Verbal Comments:: MD paged via bromination equipment operator 01/15/22 10:29 Consult: Infectious Disease Routine Consulting Provider: Franc Barber Reason for Consult: Neutropenic fever EMERGENT Consult: No Notified: Yes Date Notified: 01/15/22 Time Notified: 10:29 Method of Notification: Text 01/17/22 07:46 Consult: Full Stack Php Developer / Pulmonary Medicine Routine Consulting Provider: Pulmonary Medicine [facility] Reason for Consult: worsening infiltrates EMERGENT Consult: No Notified: Yes Date Notified: 01/17/22 Time Notified: 07:49 Method of Notification: Text Reason For Visit: NEUTROPENIC FEVER WITH PNEUMONIA Diagnosis Discharge Diagnosis (1) Thrombocytopenia: Status: Acute Code(s): D69.6 - Thrombocytopenia, unspecified (2) Acute blood loss anemia: Status: Acute Code(s): D62 - Acute posthemorrhagic anemia (3) AML (acute myeloid leukemia): Status: Acute Code(s): C92.00 - Acute myeloblastic leukemia, not having achieved remission Qualifiers: Leukemia Active/Remission status: without remission Qualified Code(s): C92.00 - Acute myeloblastic leukemia, not having achieved remission (4) Bilateral pneumonia: Status: Acute Code(s): J18.9 - Pneumonia, unspecified organism Qualifiers: Pneumonia type: due to unspecified organism Lung location: lower lobe of lung Qualified Code(s): J18.9 - Pneumonia, unspecified organism (5) Fever and neutropenia: Status: Acute Code(s): D70.9 - Neutropenia, unspecified; R50.81 - Fever presenting with conditions classified elsewhere (6) Bacteremia due to Streptococcus: Status: Acute Code(s): R78.81 - Bacteremia; B95.5 - Unspecified streptococcus as the cause of diseases classified elsewhere Medications at Discharge Home Medications acyclovir 400 mg PO BID 10/07/20 prednisone 5 mg tablet 30 mg PO DAILY tab 06/11/21 voriconazole 200 mg tablet 200 mg PO Q12H 06/11/21 ciprofloxacin HCl 500 mg PO BID 01/14/22 famotidine 20 mg PO BID 01/14/22 sulfamethoxazole-trimethoprim 1 tab PO MOWEFR 01/14/22 ursodiol 250 mg PO TID 01/14/22 cholecalciferol (vitamin D3) 50 mcg PO DAILY 01/15/22 Hospital Course Operations None Procedures None Summary of Care Provided Minutes Spent on Discharge: 60 Hospital Course: This is a 51-year-old male presents with shortness of breath and fever. Patient was found to have a neutropenic fever. Infiltrates noted on chest x-ray and patient was started on broad-spectrum antibiotics with cefepime and vancomycin. Patient was noted to be bacteremic with strep species. Patient had issues regards to anemia and was transfused with packed red blood cells which did improve but was also profoundly thrombocytopenic and requiring several rounds of platelets. Patient was developing petechiae as well as hemoptysis unclear patient did have mucositis as well. Patient's respiratory status got worse white was here. Patient was seen in consultation by pulmonology as there was some concern that patient may have diffuse alveolar hemorrhage given his profound thrombocytopenia. He did have a CAT scan that showed infiltrates that may be consistent with viral infection such as COVID-19 or influenza but his rapid Covid and influenza test were negative. 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 Is unclear if he is having that the patient's steroids have been increased. There have been issues in regards to obtaining his platelets as there is a nationwide blood product shortage but also he requires irradiated platelets which takes several hours if not longer to arrive. Discussed with Dr. Tellez, of oncology, who felt that it would be reasonable for the patient to be transferred for ease of obtaining platelets but also due to the potential for vwroa-ubmuos-qvsj disease. I talked with the patient initially and then he want to think about it wind said that he later spoke with an oncologist who had later found out was a Dr. Fuentes who felt the patient should be transferred. I spoke with the on-call leukemia physician given patient's history of AML and agreed to take the patient. Patient will be transferred there is unclear if they will be today or in the coming days they cannot tell me over the phone. Patient is aware that any transfer may not be imminent. Weight / BMI Weight Weight: 83 kg Body Mass Index (BMI) 26.2 ABG / Lab / Microbiology Data Result Diagrams: 01/17/22 05:24 01/17/22 05:24 Laboratory: Laboratory Results - last 24 hr 01/14/22 22:58: Blood Type A POSITIVE, Antibody Screen NEGATIVE, Crossmatch See Detail 01/16/22 19:24: Vancomycin Trough 10.3 01/16/22 20:59: WBC 0.2 L*, RBC 2.85 L, Hgb 9.2 L, Hct 26.4 L, MCV 92.6, MCH 32.3 H, MCHC 34.8, RDW Std Deviation 51.8 H, RDW Coeff of Thomas 15.3 H, Plt Count 2 L*, Immature Gran % (Auto) 0.000, Neut % (Auto) 4.2 L, Lymph % (Auto) 70.8 H, [place] % (Auto) 25.0 H, Eos % (Auto) 0.0, Baso % (Auto) 0.0, Absolute Neuts (auto) 0.0 L, Absolute Lymphs (auto) 0.17 L, Nucleated RBC % 0, Diff Path Review March, Platelet Estimate MKD 01/17/22 05:24: WBC 0.3 L*, RBC 2.81 L, Hgb 9.1 L, Hct 25.2 L, MCV 89.7, MCH 32.4 H, MCHC 36.1 H, RDW Std Deviation 50.0 H, RDW Coeff of Thomas 15.3 H, Plt Count 2 L*, Immature Gran % (Auto) 0.000, Neut % (Auto) 3.6 L, Lymph % (Auto) 60.7 H, [place] % (Auto) 35.7 H, Eos % (Auto) 0.0, Baso % (Auto) 0.0, Absolute Neuts (auto) 0.0 L, Absolute Lymphs (auto) 0.17 L, Nucleated RBC % 14.3 H, Diff Path Review March01/17/22 05:24: Sodium 141, Potassium 3.2 L, Chloride 110 H, Carbon Dioxide 27.0, Anion Gap 4 L, BUN 25 H, Creatinine 1.02, Estim Creat Clear Calc 86.48, Est GFR (MDRD) Af Amer 98, Est GFR (MDRD) Non-Af 81, BUN/Creatinine Ratio 24.5 H , Glucose 115 H, Calcium 9.4, Total Bilirubin 0.70, AST 66 H, ALT 59, Alkaline Phosphatase 64, Total Protein 6.0 L, Albumin 2.2 L, Globulin 3.8, Albumin/Globulin Ratio 0.6 L Microbiology: Microbiology 01/15/22 13:07 Blood Culture (Wb) - Anticubital Right Blood Culture - Preliminary No growth in 48 hours. 01/15/22 13:14 Blood Culture (Wb) - Anticubital Left Blood Culture - Preliminary No growth in 48 hours. 01/15/22 00:45 Urine, Clean Catch Urine Culture - Final Culture exhibits no growth. 01/14/22 21:52 Blood Culture (Wb) - Chest Bacteria Detection (PCR) - Final 01/14/22 21:52 Blood Culture (Wb) - Chest Blood Culture - Final Strep salivarius sp salivarius 01/14/22 22:15 Blood Culture (Wb) - Left Hand Blood Culture - Final Strep salivarius sp salivarius 01/14/22 22:16 Mucosa - Nose Influenza Types A,B Direct FA (CLAUDIA) - Final 01/14/22 21:55 Interface Orders SARS-CoV-2 Antigen (Rapid) - Final Radiography Diagnostic Testing: Radiology Impression Chest X-Ray 01/17/22 07:00 IMPRESSION: No change from 01/14/2022. Electronically Signed: Bharath Collins MD at 7:34 EST Reading Location ID and State: [id number] / [employer] Tel , Service support , Chest CT 01/17/22 09:54 IMPRESSION: Moderate bilateral subsegmental atelectasis or pneumonitis. Commonly reported imaging features of Covid 19 pneumonia are present. Other processes such as influenza pneumonia and organizing pneumonia as can be seen in drug toxicity and connective tissue disease can cause a similar imaging pattern. Electronically Signed: Bharath Collins MD at 11:27 EST Reading Location ID and State: [id number] / [employer] Tel , Service support , Meaningful Use Info Meaningful Use Diagnoses (Choose all that apply): None applicable Discharge Plan Admission Admit Date/Time: 01/15/22 00:35 Primary Reason for Your Visit: neutropenic fever. Attending Provider: Salazar Rascon Primary Care Provider: Christina London Consulting Providers: Maxwell Swift ; Franc Barber ; Aftab Navarrete ; Pranav Herbert ; Lili Salcido CUSTOM HOME INSTALLER Discharge Orders/Prescriptions Prescriptions: No Action voriconazole 200 mg tablet 200 mg PO Q12H RF: 0 prednisone 5 mg tablet 30 mg PO DAILY RF: 0 acyclovir 400 MG tablet 400 mg PO BID RF: 0 ciprofloxacin HCl 500 mg tablet 500 mg PO BID RF: 0 sulfamethoxazole-trimethoprim 800-160 mg tablet 1 tab PO MOWEFR RF: 0 famotidine 20 mg tablet 20 mg PO BID RF: 0 ursodiol 250 mg tablet 250 mg PO TID RF: 0 cholecalciferol (vitamin D3) 50 mcg (2,000 unit) Tablet 50 mcg PO DAILY RF: 0 Referrals / Follow Up: Christina London DO [Primary Care Provider] - Disposition Disposition (needs filled in before D/C Order can be placed): Acute Care Hospital Charges/Coding Visit Charges Inpatient E&M: 91931 Disch Hosp
--- NOTE | 2022-01-17 16:51 | NURSING ---
report called to [facility] and talked to Barb jay
[2022-01-17 17:09] LABS: Hematocrit 22.4 % (40-54); Hemoglobin 8.1 g/dL (13.0-16.5); Lymphocyte % 64.5 % (19-41); Mean Corp Hgb Conc 36.2 g/dL (32-36); Mean Corpuscular Hgb 32.1 pg (27.0-32.0); Mean Corpuscular Volume 88.9 fL (80-94); Mean Platelet Vol. 10.8 fl (6.2-12.0); Monocyte# 0.11 X10^3/uL; Monocyte% 35.5 % (0-10); NRBC Flagged by Analyzer 0 % (0-5); POSITIVE COUNT YES; POSITIVE DIFFERENTIAL YES; POSITIVE MORPHOLOGY YES; Platelet Count 15 K/mm3 (150-450); RBC Distribution Width CV 15.4 % (11.6-14.6); RBC Distribution Width SD 49.7 fl (35.1-43.9); Red Blood Count 2.52 M/mm3 (4.6-6.2)
[2022-01-17 17:13] LABS: Differential Indicated SCAN CRITERIA MET; White Blood Count 0.3 K/mm3 (4.4-11.0)
--- NOTE | 2022-01-17 17:18 | NURSING ---
text sent to Dr Rascon about critical values in lastest cbc - wbc 0.3 and plts 15
[2022-01-17 17:38] LABS: Platelet Estimate MKD DEC (ADEQ)
[2022-01-17 17:39] LABS: Red Cell Morphology N CYTIC NORMAL (NORM C&C)
[2022-01-18 12:16] LABS: Haptoglobin 147 mg/dL (29-370)
[2022-01-19 10:09] LABS: Pathologist Review Reviewed
[2022-01-19 10:09] LABS: Pathologist Review Reviewed
[2022-01-19 10:09] LABS: Pathologist Review Reviewed
[2022-01-19 10:09] LABS: Pathologist Review Reviewed
== END 2022-01-17 17:55 | disposition short-term general hospital (02) | DRG 808 ==
LOC: ED 21:50 → MS3 23:49
PROVIDERS: Internal Medicine; Admitting Provider Family Medicine; Emergency Provider Emergency Medicine; PCP Internal Medicine
DX: D61.810 Antineoplastic chemotherapy induced pancytopenia (principal); J15.4 Pneumonia due to other streptococci; C92.02 Acute myeloblastic leukemia, in relapse; R04.2 Hemoptysis; D62 Acute posthemorrhagic anemia; R78.81 Bacteremia; D46.9 Myelodysplastic syndrome, unspecified; R50.81 Fever presenting with conditions classified elsewhere; T45.1X5A Adverse effect of antineoplastic and immunosuppressive drugs, initial encounter; B95.5 Unspecified streptococcus as the cause of diseases classified elsewhere; R09.02 Hypoxemia; Z94.84 Stem cells transplant status; Z20.822 Contact with and (suspected) exposure to COVID-19; Z86.718 Personal history of other venous thrombosis and embolism
CPT/HCPCS: 36415; 71045; 71250; 80048; 80053; 80202; 81001; 82550; 82962; 83010; 83605; 83615; 83880; 85025; 85610; 85730; 86644; 86850; 86880; 86900; 86901; 86920; 86922; 86965; 87040; 87077; 87086; 87149; 87186; 87426; 87804; 93005; 93306; 99284; J7030; J7040; J7050; P9016; P9035; A4216; J1940

== ENCOUNTER 2022-01-28 10:08 | Inpatient (IN) | payer OTHER, SELFPAY ==
[2022-01-28] VITALS (15 sets, daily range): BP systolic 114–141; BP diastolic 73–85; PULSE 83–126; RESP 16–25; TEMP 36.8–37.7; O2SAT 90–100; BMI 26.9
--- NOTE | 2022-01-28 10:14 | EDS_ITS ---
HPI <NEISHA Herrera - Last Filed: 01/28/22 13:37> History of Present Illness Chief Complaint: Fever Narrative Narrative: 51-year-old male with history of myelodysplastic syndrome status post stem cell transplant, currently has AML presents with a fever. Last chemotherapy was 01/11/22. He was recently admitted here for neutropenic fever and bilateral pneumonia. Blood cultures were positive for Streptococcus at that time. He was transferred to [facility] from 01/17?01/25. He was treated with IV antibiotics and required multiple platelet transfusions. He was discharged on aminocaproic acid which is a clotting promoter. He states his productive cou gh has not improved but he denies hemoptysis or bleeding issues. He chronically wears 3 L O2 and has not had increased requirements. Denies chest pain. He spiked a fever of 101F this morning which prompted him to come in. He spoke with his oncologist, Dr. Christina Dunham, who wanted him transferred back to [facility]. PFSH <NEISHA Herrera - Last Filed: 01/28/22 13:37> [facility] Medical History AML (acute myeloid leukemia) Home Medications acyclovir 400 mg PO BID 10/07/20 [History Last Taken Unknown] prednisone 5 mg tablet 30 mg PO DAILY tab 06/11/21 [History Last Taken Unknown] voriconazole 200 mg tablet 200 mg PO Q12H 06/11/21 [History Last Taken Unknown] ciprofloxacin HCl 500 mg PO BID 01/14/22 [History Last Taken Unknown] famotidine 20 mg PO BID 01/14/22 [History Last Taken Unknown] sulfamethoxazole-trimethoprim 1 tab PO MOWEFR 01/14/22 [History Last Taken Unknown] ursodiol 250 mg PO TID 01/14/22 [History Last Taken Unknown] cholecalciferol (vitamin D3) 50 mcg PO DAILY 01/15/22 [History Last Taken Unknown] Allergy/AdvReac Type Severity Reaction Status Date / Time No Known Allergies Allergy Verified 01/28/22 10:14 Family History Other Cancer Heart disease Surgical History Status post medial meniscal repair Social History Smoking Status: Never smoker ROS <NEISHA Herrera - Last Filed: 01/28/22 13:37> ROS ED ROS Narrative Constitutional: Positive for fever. Negative for chills, malaise. Eyes: Negative for visual change. ENT: Negative for sore throat, ear pain, rhinorrhea. CVS: Negative for palpitations, chest pain, syncope. Respiratory: Positive for shortness of breath, cough. Negative for orthopnea. GI: Negative for abdominal pain, nausea, vomiting, diarrhea, constipation, melena, hematochezia. : Negative for dysuria, hematuria or frequency. Neuro: Negative for headache, motor/sensory dysfunction. Skin: Negative for rash, abscess, or wound. Musc: Negative for joint pain, swelling, trauma. Heme: Negative for easy bruising, bleeding, lymphadenopathy. EXAM <NEISHA Herrera - Last Filed: 01/28/22 13:37> Physical Exam Narrative Exam Narrative: CONST: Patient sitting in no acute distress. EYES: Normal inspection. ENT: Normal inspection, slightly dry mucous membranes. NECK: Normal inspection. RESP: No respiratory distress, CTAB. CVS: Tachycardic with regular rhythm, no murmur, no gallop. ABD: Soft and nontender, no guarding or rebound, nondistended, no hepatosplenomegaly. Back: Normal inspection. SKIN: Color normal, no rash, warm, dry, intact. EXTREMITIES: Normal appearance, no pedal edema. NEURO: Oriented x4. PSYCH: Normal affect. Const Vital Signs: 01/28/22 10:10 01/28/22 10:23 01/28/22 10:51 Temperature 99.8 F H Temperature Source Temporal Pulse Rate 126 H 116 H 106 H Respiratory Rate 20 H 20 H 25 H Respiratory Effort Normal Non-Labored Respiratory Pattern Normal Blood Pressure 141/84 H 125/83 H 121/76 H Blood Pressure Mean 103 97 91 Pulse Ox 90 95 96 Oxygen Delivery Method Nasal Cannula Nasal Cannula Nasal Cannula Oxygen Flow Rate (L/min) 3 3 01/28/22 12:06 01/28/22 13:05 01/28/22 13:08 Temperature 98.3 F 98.3 F Temperature Source Oral Oral Pulse Rate 92 Respiratory Rate 16 Respiratory Effort Respiratory Pattern Blood Pressure 124/82 H Blood Pressure Mean 96 Pulse Ox 95 96 Oxygen Delivery Method Nasal Cannula Nasal Cannula Oxygen Flow Rate (L/min) 3 3 01/28/22 15:12 Temperature Temperature Source Pulse Rate 95 Respiratory Rate 21 H Respiratory Effort Respiratory Pattern Blood Pressure 126/76 H Blood Pressure Mean 92 Pulse Ox 95 Oxygen Delivery Method Nasal Cannula Oxygen Flow Rate (L/min) 3 <Thien Herron MD - Last Filed: 01/28/22 15:44> Physical Exam Const Vital Signs: 01/28/22 10:10 01/28/22 10:23 01/28/22 10:51 Temperature 99.8 F H Temperature Source Temporal Pulse Rate 126 H 116 H 106 H Respiratory Rate 20 H 20 H 25 H Respiratory Effort Normal Non-Labored Respiratory Pattern Normal Blood Pressure 141/84 H 125/83 H 121/76 H Blood Pressure Mean 103 97 91 Pulse Ox 90 95 96 Oxygen Delivery Method Nasal Cannula Nasal Cannula Nasal Cannula Oxygen Flow Rate (L/min) 3 3 01/28/22 12:06 01/28/22 13:05 01/28/22 13:08 Temperature 98.3 F 98.3 F Temperature Source Oral Oral Pulse Rate 92 Respiratory Rate 16 Respiratory Effort Respiratory Pattern Blood Pressure 124/82 H Blood Pressure Mean 96 Pulse Ox 95 96 Oxygen Delivery Method Nasal Cannula Nasal Cannula Oxygen Flow Rate (L/min) 3 3 01/28/22 15:12 Temperature Temperature Source Pulse Rate 95 Respiratory Rate 21 H Respiratory Effort Respiratory Pattern Blood Pressure 126/76 H Blood Pressure Mean 92 Pulse Ox 95 Oxygen Delivery Method Nasal Cannula Oxygen Flow Rate (L/min) 3 [facility] <NEISHA Herrera - Last Filed: 01/28/22 13:37> [facility] Narrative Medical decision making narrative: Patient presents with neutropenic fever after recent discharge from [facility] for the same issue. He appears well and nontoxic. Vital signs show tachycardia in 120s, 99.8F, otherwise normal. Exam is essentially unremarkable with moist mucous membranes, rapid but regular heart rhythm, and clear lungs. Sepsis lab work was obtained with repeat blood cultures pending. CBC shows WBC/RBC/PLT of 0.6/8.7/8 which are similar to previous. CMP is unremarkable. Lactate 1.6. Chest x-ray shows slightly improved pneumonia. Patient was treated for neutropenic fever and thrombocytopenic with IV fluids, cefepime, vancomycin, and a unit of platelets. His oncologist wants him transferred back to [facility] for further treatment. I discussed his case with F leukemia physician Dr. Nell Pendleton who agreed to accept him for transfer. Patient is here awaiting bed placement. 1. Neutropenic fever 2. History of myelodysplastic disorder 3. Chronic pancytopenia 4. AML 5. Continued community-acquired pneumonia Lab Data Labs: Laboratory Results - last 24 hr 01/28/22 01/28/22 01/28/22 10:35 10:35 10:35 WBC 0.6 L* RBC 2.84 L Hgb 8.7 L Hct 25.2 L MCV 88.7 MCH 30.6 MCHC 34.5 RDW Std Deviation 47.6 H RDW Coeff of Thomas 14.7 H Plt Count 8 L* Immature Gran % (Auto) 0.000 Neut % (Auto) 3.6 L Lymph % (Auto) 50.0 H Sunflower % (Auto) 46.4 H Eos % (Auto) 0.0 Baso % (Auto) 0.0 Absolute Neuts (auto) 0.0 L Absolute Lymphs (auto) 0.28 L Nucleated RBC % 0 Differential Comment SCANNED Diff Path Review May foll Platelet Estimate MKD DEC PT 14.1 INR 1.2 APTT 26.0 Sodium 137 Potassium 3.8 Chloride 105 Carbon Dioxide 29.0 Anion Gap 3 L BUN 18 Creatinine 0.79 Estim Creat Clear Calc 108.14 Est GFR (MDRD) Af Amer 131 Est GFR (MDRD) Non-Af 109 BUN/Creatinine Ratio 22.8 H Glucose 143 H Lactic Acid Calcium 9.2 Total Bilirubin 0.50 AST 51 H ALT 40 Alkaline Phosphatase 82 Total Protein 6.0 L Albumin 2.5 L Globulin 3.5 Albumin/Globulin Ratio 0.7 L Urine Color Urine Clarity Urine pH Ur Specific [place] Urine Protein Urine Glucose (UA) Urine Ketones Urine Occult Blood Urine Nitrite Urine Bilirubin Urine Urobilinogen Ur Leukocyte Esterase Urine RBC Urine WBC Ur Squamous Epith Cells Urine Bacteria Urine Mucus Blood Type Antibody Screen 01/28/22 01/28/22 01/28/22 10:35 11:40 12:30 WBC RBC Hgb Hct MCV MCH MCHC RDW Std Deviation RDW Coeff of Thomas Plt Count Immature Gran % (Auto) Neut % (Auto) Lymph % (Auto) Sunflower % (Auto) Eos % (Auto) Baso % (Auto) Absolute Neuts (auto) Absolute Lymphs (auto) Nucleated RBC % Differential Comment Diff Path Review Platelet Estimate PT INR APTT Sodium Potassium Chloride Carbon Dioxide Anion Gap BUN Creatinine Estim Creat Clear Calc Est GFR (MDRD) Af Amer Est GFR (MDRD) Non-Af BUN/Creatinine Ratio Glucose Lactic Acid 1.6 Calcium Total Bilirubin AST ALT Alkaline Phosphatase Total Protein Albumin Globulin Albumin/Globulin Ratio Urine Color Yellow Urine Clarity Clear Urine pH 7.0 Ur Specific [place] 1.010 Urine Protein 30 H Urine Glucose (UA) Normal Urine Ketones Negative Urine Occult Blood 150 H Urine Nitrite Negative Urine Bilirubin Negative Urine Urobilinogen Normal Ur Leukocyte Esterase Negative Urine RBC 10-25 SEEN Urine WBC 0 SEEN Ur Squamous Epith Cells 0 SEEN Urine Bacteria 0 SEEN Urine Mucus 0 SEEN Blood Type A POSITIVE Antibody Screen NEGATIVE Radiography Diagnostic Testing: Clinical Impression(s) from Imaging Studies Chest X-Ray 01/28/22 10:57 IMPRESSION: Improved aeration with decreased airspace disease which may represent improving edema or pneumonia. Right central venous catheter in stable position. at 1116 Reported and signed by: Paulo Portillo MD Electronically Signed: Paulo Portillo MD at 11:15 EDT , <Thien Herron MD - Last Filed: 01/28/22 15:44> [facility] MDM Narrative Medical decision making narrative: ATTENDING NOTE: Dr. Herron: The patient was seen in conjunction with the PA-C/nurse practitioner. I performed a history and physical, and agree with the management of this patient. I agree with noted documentation and plan. I discussed the plan of care and final disposition with the physician associate/nurse practitioner. Neutropenic fever. Recently discharged from [facility]. Temperature 99.8 degrees, vital signs noted. Recheck labs. Antibiotics. Transfer. Lab Data Attestation: I reviewed the patient's lab results. Labs: Laboratory Results - last 24 hr 01/28/22 01/28/22 01/28/22 10:35 10:35 10:35 WBC 0.6 L* RBC 2.84 L Hgb 8.7 L Hct 25.2 L MCV 88.7 MCH 30.6 MCHC 34.5 RDW Std Deviation 47.6 H RDW Coeff of Thomas 14.7 H Plt Count 8 L* Immature Gran % (Auto) 0.000 Neut % (Auto) 3.6 L Lymph % (Auto) 50.0 H Sunflower % (Auto) 46.4 H Eos % (Auto) 0.0 Baso % (Auto) 0.0 Absolute Neuts (auto) 0.0 L Absolute Lymphs (auto) 0.28 L Nucleated RBC % 0 Differential Comment SCANNED Diff Path Review March foll Platelet Estimate MKD OCT PT 14.1 INR 1.2 APTT 26.0 Sodium 137 Potassium 3.8 Chloride 105 Carbon Dioxide 29.0 Anion Gap 3 L BUN 18 Creatinine 0.79 Estim Creat Clear Calc 108.14 Est GFR (MDRD) Af Amer 131 Est GFR (MDRD) Non-Af 109 BUN/Creatinine Ratio 22.8 H Glucose 143 H Lactic Acid Calcium 9.2 Total Bilirubin 0.50 AST 51 H ALT 40 Alkaline Phosphatase 82 Total Protein 6.0 L Albumin 2.5 L Globulin 3.5 Albumin/Globulin Ratio 0.7 L Urine Color Urine Clarity Urine pH Ur Specific [place] Urine Protein Urine Glucose (UA) Urine Ketones Urine Occult Blood Urine Nitrite Urine Bilirubin Urine Urobilinogen Ur Leukocyte Esterase Urine RBC Urine WBC Ur Squamous Epith Cells Urine Bacteria Urine Mucus Blood Type Antibody Screen 01/28/22 01/28/22 01/28/22 10:35 11:40 12:30 WBC RBC Hgb Hct MCV MCH MCHC RDW Std Deviation RDW Coeff of Thomas Plt Count Immature Gran % (Auto) Neut % (Auto) Lymph % (Auto) Sunflower % (Auto) Eos % (Auto) Baso % (Auto) Absolute Neuts (auto) Absolute Lymphs (auto) Nucleated RBC % Differential Comment Diff Path Review Platelet Estimate PT INR APTT Sodium Potassium Chloride Carbon Dioxide Anion Gap BUN Creatinine Estim Creat Clear Calc Est GFR (MDRD) Af Amer Est GFR (MDRD) Non-Af BUN/Creatinine Ratio Glucose Lactic Acid 1.6 Calcium Total Bilirubin AST ALT Alkaline Phosphatase Total Protein Albumin Globulin Albumin/Globulin Ratio Urine Color Yellow Urine Clarity Clear Urine pH 7.0 Ur Specific [place] 1.010 Urine Protein 30 H Urine Glucose (UA) Normal Urine Ketones Negative Urine Occult Blood 150 H Urine Nitrite Negative Urine Bilirubin Negative Urine Urobilinogen Normal Ur Leukocyte Esterase Negative Urine RBC 10-25 SEEN Urine WBC 0 SEEN Ur Squamous Epith Cells 0 SEEN Urine Bacteria 0 SEEN Urine Mucus 0 SEEN Blood Type A POSITIVE Antibody Screen NEGATIVE Radiography Diagnostic Testing: Clinical Impression(s) from Imaging Studies Chest X-Ray 01/28/22 10:57 IMPRESSION: Improved aeration with decreased airspace disease which may represent improving edema or pneumonia. Right central venous catheter in stable position. at 1116 Reported and signed by: Paulo Portillo MD Electronically Signed: Paulo Portillo MD at 11:15 EDT , Discharge Plan Triage Chief Complaint: Fever ED Provider: Jasmin Huntley Dx/Rx/DC Orders Prescriptions: No Action voriconazole 200 mg tablet 200 mg PO Q12H RF: 0 prednisone 5 mg tablet 30 mg PO DAILY RF: 0 acyclovir 400 MG tablet 400 mg PO BID RF: 0 ciprofloxacin HCl 500 mg tablet 500 mg PO BID RF: 0 sulfamethoxazole-trimethoprim 800-160 mg tablet 1 tab PO MOWEFR RF: 0 famotidine 20 mg tablet 20 mg PO BID RF: 0 ursodiol 250 mg tablet 250 mg PO TID RF: 0 cholecalciferol (vitamin D3) 50 mcg (2,000 unit) Tablet 50 mcg PO DAILY RF: 0 Primary Care Provider: Christina London
--- NOTE | 2022-01-28 10:27 | EKG12_ITS ---
Test Reason : SOB Blood Pressure : / mmHG Vent. Rate : 106 BPM Atrial Rate : 106 BPM P-R Int : 118 ms QRS Dur : 084 ms QT Int : 342 ms P-R-T Axes : 056 009 061 degrees QTc Int : 454 ms Sinus tachycardia Otherwise normal ECG Confirmed by MARTINEZ NAVARRETE, ZACH ([id number]), supervising film or videotape editor DAY JOSEPH ([id number]) on 02/01/2022 11:05:26 A M Referred By: KARLENE Confirmed By:NORTH HENRIQUEZ MD
[2022-01-28] MEDS: 0.9% Normal Saline 1,000 ML 999 ML IV (10:55)
[2022-01-28 10:57] LABS: Absolute Lymphocyte Count 0.28 X10^3/uL (0.83-4.51); Hematocrit 25.2 % (40-54); Hemoglobin 8.7 g/dL (13.0-16.5); Lymphocyte # 0.28 X10^3/ul (0.83-4.51); Mean Corp Hgb Conc 34.5 g/dL (32-36); Mean Corpuscular Hgb 30.6 pg (27.0-32.0); Mean Corpuscular Volume 88.7 fL (80-94); Monocyte# 0.26 X10^3/uL; Monocyte% 46.4 % (0-10); NRBC Flagged by Analyzer 0 % (0-5); Neutrophil # 0.02 X10^3/uL (2.7-7.7); Neutrophil % 3.6 % (47-70); POSITIVE COUNT YES; POSITIVE DIFFERENTIAL YES; POSITIVE MORPHOLOGY YES; Platelet Count 8 K/mm3 (150-450); RBC Distribution Width CV 14.7 % (11.6-14.6); RBC Distribution Width SD 47.6 fl (35.1-43.9); Red Blood Count 2.84 M/mm3 (4.6-6.2)
--- NOTE | 2022-01-28 10:57 | RAD_ITS ---
EXAM: XR CHEST, 1 VIEW : 1970 CLINICAL INDICATION: cough TECHNIQUE: Frontal view of the chest. This report was created using [employer] report generation technology. COMPARISON: 01/17/2022 FINDINGS: LUNGS AND PLEURAL SPACES: There is improved aeration with decreased bilateral airspace disease. No pneumothorax. No effusion. HEART: Unremarkable. Cardiac silhouette not enlarged. MEDIASTINUM: Central airways and mediastinal contour are unremarkable. BONES/JOINTS: Unremarkable. SOFT TISSUES: Unremarkable. TUBES, LINES AND DEVICES: Right central venous catheter in stable position. RAD/Chest 1 View (Portable) IMPRESSION: Improved aeration with decreased airspace disease which may represent improving edema or pneumonia. Right central venous catheter in stable position. at 1116 Reported and signed by: Paulo Portillo MD Electronically Signed: Paulo Portillo MD at 11:15 EDT ,
[2022-01-28 11:00] LABS: White Blood Count 0.6 K/mm3 (4.4-11.0)
[2022-01-28 11:01] LABS: Differential Indicated SCAN CRITERIA MET
[2022-01-28 11:06] LABS: ALB/GLOB Ratio 0.7 RATIO (0.9-2.4); AST(SGOT) 51 U/L (15-37); Alanine Aminotransfer ALT/SGPT 40 U/L (16-61); Albumin, Serum 2.5 g/dL (3.2-5.0); Alkaline Phosphatase 82 U/L (45-117); Anion Gap 3 (5-15); BUN 18 mg/dL (7-18); BUN/Creat Ratio 22.8 RATIO (10-20); Calcium,Total 9.2 mg/dL (8.5-10.1); Chloride 105 mmol/L (98-107); Creatinine, Serum 0.79 mg/dL (0.70-1.30); EST Glomerular Filtration Rate 109 mL/min (>60); Est Glom Filt Rate - Afr Amer 131 mL/min (>60); Estimated Creatinine Clearance 108.14 ml/min; Globulin 3.5 g/dL (2.2-4.2); Glucose 143 mg/dL (74-106); Potassium 3.8 mmol/L (3.5-5.1); Sodium Level 137 mmol/L (136-145)
[2022-01-28 11:07] LABS: International Normalized Ratio 1.2; Prothrombin Time (Protime)PT. 14.1 SECONDS (11.7-14.9)
[2022-01-28 11:15] LABS: Differential Comment SCANNED; Platelet Estimate MKD DEC (ADEQ)
[2022-01-28 11:19] LABS: Lactic Acid 1.6 mmol/L (0.4-1.9)
--- NOTE | 2022-01-28 11:31 | ED.RN ---
FACESHEET FAXED [facility]
[2022-01-28 12:40] LABS: Bacteria 0 SEEN /hpf (None Seen); Mucous, Urine 0 SEEN /hpf (<or=2+); Squamous Epithelial Cells - UA 0 SEEN /hpf (0-5); White Blood Cells 0 SEEN /hpf (0-5)
[2022-01-28 12:42] LABS: Color, Urine Yellow (Yellow); Glucose, Dipstick Normal (Normal); Ketone-Dipstick Negative (Negative); Leukocyte Esterase-Dipstick Negative /ul (Negative); Nitrite-Dipstick Negative (Negative); Occult Blood-Urine 150 /ul (Negative); Protein-Dipstick 30 mg/dl (Negative); Urine Bilirubin Dipstick Negative (Negative); Urine Clarity Clear (Clear); Urine Urobilinogen Normal (Normal)
[2022-01-28 12:48] LABS: Red Blood Cells-Urine 10-25 SEEN /hpf (0-5)
[2022-01-28] MEDS: DiphenhydrAMINE 50 MG/ML Syringe 25 MG IV (17:36)
[2022-01-28] MEDS: Acetaminophen 325 MG Tablet 650 MG PO (19:55)
--- NOTE | 2022-01-28 20:36 | ED.RN ---
PT TAKING HOME MEDS, AWARE.
[2022-01-29] VITALS (15 sets, daily range): BP systolic 117–143; BP diastolic 63–93; PULSE 80–140; RESP 18–25; TEMP 36.7–39.4; O2SAT 95–100; BMI 25.0
--- NOTE | 2022-01-29 01:10 | HP.PCM.HOS_ITS ---
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 Patient and emergency provider has spoken to [facility] and patient is to be transferred back to [facility]. However there is no bed at [facility] at this time. After patient has stayed at [facility] ED for more than 6 hours hospitalist was notified to admit patient. [facility] Medical History AML (acute myeloid leukemia) Myelodysplastic syndrome Home Medications acyclovir 400 mg PO BID 10/07/20 [History Last Taken Unknown] ciprofloxacin HCl 500 mg PO BID 01/14/22 [History Last Taken Unknown] famotidine 20 mg PO BID 01/14/22 [History Last Taken Unknown] sulfamethoxazole-trimethoprim 1 tab PO MOWEFR 01/14/22 [History Last Taken Unknown] ursodiol 250 mg PO TID 01/14/22 [History Last Taken Unknown] cholecalciferol (vitamin D3) 50 mcg PO DAILY 01/15/22 [History Last Taken Unknown] aminocaproic acid 1,000 mg PO BID 01/29/22 [History Last Taken Unknown] prednisone 90 mg PO DAILY 01/29/22 [History Last Taken 01/28/22 08:00] voriconazole 200 mg PO Q12H 01/29/22 [History Last Taken Unknown] Allergy/AdvReac Type Severity Reaction Status Date / Time No Known Allergies Allergy Verified 01/28/22 10:14 Family History Other Cancer Heart disease Surgical History H/O bone marrow transplant Status post medial meniscal repair Social History Smoking Status: Never smoker ROS ROS Narrative Constitutional: Reports fever and chills. Reports fatigue. Eyes: Denies blurry vision, change in eye color, change in vision, discharge from eye(s), double vision, erythema, eye pain, loss of vision or other HEENT: Denies abnormal hearing, dysphagia, ear pain, epistaxis, headache(s), hearing loss, nasal congestion, nasal discharge, post nasal drip, sinus pressure, sore throat or other Cardiovascular: Denies chest pain or palpitations. Respiratory/Chest: Reports dry cough. Reports shortness of breath with exertion. Gastrointestinal: Denies abdominal pain, coffee ground emesis, constipation, diarrhea, dyspepsia, hematemesis, hematochezia, loose stools, melena, nausea, vomiting or other Genitourinary: Denies burning urination, difficulty urinating, dysuria, hematuria, nocturia, urinary frequency, urinary hesitancy, urinary incontinence, urinary urgency or other Musculoskeletal: Denies arthralgias, back pain, joint pain, joint stiffness, joint swelling, myalgias, neck pain or other Neurologic: Denies abnormal gait, abnormal speech, confusion, disequilibrium, dizziness, focal weakness, headache(s), numbness, paresthesias, seizure-like activity, seizures, syncope, tingling, tremor(s) or other Psychiatric: Denies anxiety, depression, homicidal ideation, suicidal ideation or other Endocrinology: Denies change in body appearance, cold intolerance, excessive sweating, heat intolerance, polydipsia, polyuria or other Hematologic/Lymphatic: Denies anemia, easy bleeding, easy bruising, lymphadenopathy or other Integumentary: Denies rashes Allergic/Immunologic: Denies rhinitis, hives, eczema, or other Vital Signs Vital Signs Vital Signs: 01/28/22 10:10 01/28/22 10:23 01/28/22 10:51 Temperature 99.8 F H Temperature Source Temporal Pulse Rate 126 H 116 H 106 H Respiratory Rate 20 H 20 H 25 H Respiratory Effort Normal Non-Labored Respiratory Pattern Normal Blood Pressure 141/84 H 125/83 H 121/76 H Blood Pressure Mean 103 97 91 Blood Pressure Source Blood Pressure Position Blood Pressure Location Pulse Ox 90 95 96 Oxygen Delivery Method Nasal Cannula Nasal Cannula Nasal Cannula Oxygen Flow Rate (L/min) 3 3 01/28/22 12:06 01/28/22 13:05 01/28/22 13:08 Temperature 98.3 F 98.3 F Temperature Source Oral Oral Pulse Rate 92 Respiratory Rate 16 Respiratory Effort Respiratory Pattern Blood Pressure 124/82 H Blood Pressure Mean 96 Blood Pressure Source Blood Pressure Position Blood Pressure Location Pulse Ox 95 96 Oxygen Delivery Method Nasal Cannula Nasal Cannula Oxygen Flow Rate (L/min) 3 3 01/28/22 15:12 01/28/22 16:00 01/28/22 17:39 Temperature 98.6 F Temperature Source Oral Pulse Rate 95 93 90 Respiratory Rate 21 H 21 H 20 H Respiratory Effort Respiratory Pattern Blood Pressure 126/76 H 121/73 H 118/74 Blood Pressure Mean 92 89 88 Blood Pressure Source Monitor Blood Pressure Position Semi-Fowlers Blood Pressure Location Right Arm Pulse Ox 95 98 Oxygen Delivery Method Nasal Cannula Nasal Cannula Oxygen Flow Rate (L/min) 3 3 01/28/22 17:54 01/28/22 19:34 01/28/22 20:00 Temperature 98.4 F Temperature Source Oral Pulse Rate 90 83 86 Respiratory Rate 21 H 18 20 H Respiratory Effort Respiratory Pattern Blood Pressure 117/85 H 138/81 H 140/78 H Blood Pressure Mean 95 100 98 Blood Pressure Source Monitor Blood Pressure Position Semi-Fowlers Blood Pressure Location Right Arm Pulse Ox 100 96 95 Oxygen Delivery Method Nasal Cannula Nasal Cannula Nasal Cannula Oxygen Flow Rate (L/min) 3 3 3 01/28/22 21:00 01/28/22 22:00 01/28/22 23:00 Temperature Temperature Source Pulse Rate 95 96 88 Respiratory Rate 23 H 24 H 20 H Respiratory Effort Respiratory Pattern Blood Pressure 124/78 H 124/74 H 114/75 Blood Pressure Mean 93 90 88 Blood Pressure Source Blood Pressure Position Blood Pressure Location Pulse Ox 97 97 97 Oxygen Delivery Method Nasal Cannula Nasal Cannula Nasal Cannula Oxygen Flow Rate (L/min) 3 3 3 01/29/22 00:00 Temperature Temperature Source Pulse Rate 80 Respiratory Rate 22 H Respiratory Effort Respiratory Pattern Blood Pressure 118/73 Blood Pressure Mean 88 Blood Pressure Source Blood Pressure Position Blood Pressure Location Pulse Ox 99 Oxygen Delivery Method Nasal Cannula Oxygen Flow Rate (L/min) 4 Weight Weight: 82.554 kg Body Mass Index (BMI) 26.9 Physical Exam Narrative Physical exam: General: Patient looks sick. Head: Normocephalic, atraumatic, no tenderness Eyes: PERRLA, EOMI ENT, no trauma, dry mucous membranes, no rhinorrhea Neck: Nontender, full range of motion, no spinal tenderness, deformities, step- off CVS: Regular rate and rhythm. S1-S2 present. No murmur, gallop or rub. Respiratory : Increased work of breathing. Mild bibasilar Rales. chest wall nontender, no wheezing Abdomen: Soft, nontender, nondistended, normal bowel sounds, no masses : Deferred Back: Nontender, no CVA tenderness, no midline spinal tenderness, deformities, step-offs Extremities: 1-2+ pitting edema of lower legs. Nontender full range of motion, no trauma Skin: Normal color, no trauma, abrasions Neuro: Alert, oriented, cranial nerves II through XII grossly intact. Psychiatry: Appears depressed. Not anxious. Results Lab / Micro Data Result Diagrams: 01/29/22 01:25 01/28/22 10:35 Labs: Laboratory Results - last 24 hr 01/28/22 10:35: WBC 0.6 L*, RBC 2.84 L, Hgb 8.7 L, Hct 25.2 L, MCV 88.7, MCH 30.6, MCHC 34.5, RDW Std Deviation 47.6 H, RDW Coeff of Thomas 14.7 H, Plt Count 8 L*, Immature Gran % (Auto) 0.000, Neut % (Auto) 3.6 L, Lymph % (Auto) 50.0 H, [place] % (Auto) 46.4 H, Eos % (Auto) 0.0, Baso % (Auto) 0.0, Absolute Neuts (auto) 0.0 L, Absolute Lymphs (auto) 0.28 L, Nucleated RBC % 0, Differential Comment SCANNED, Diff Path Review March macarena, Platelet Estimate MKD 01/28/22 10:35: PT 14.1, INR 1.2, APTT 26.0 01/28/22 10:35: Sodium 137, Potassium 3.8, Chloride 105, Carbon Dioxide 29.0, Anion Gap 3 L, BUN 18, Creatinine 0.79, Estim Creat Clear Calc 108.14, Est GFR (MDRD) Af Amer 131, Est GFR (MDRD) Non-Af 109, BUN/Creatinine Ratio 22.8 H, Glucose 143 H, Calcium 9.2, Total Bilirubin 0.50, AST 51 H, ALT 40, Alkaline Phosphatase 82, Total Protein 6.0 L, Albumin 2.5 L, Globulin 3.5, Albumin/Globulin Ratio 0.7 L 01/28/22 10:35: Lactic Acid 1.6 01/28/22 11:40: Blood Type A POSITIVE, Antibody Screen NEGATIVE 01/28/22 12:30: Urine Color Yellow, Urine Clarity Clear, Urine pH 7.0, Ur Specific [place] 1.010, Urine Protein 30 H, Urine Glucose (UA) Normal, Urine Ketones Negative, Urine Occult Blood 150 H, Urine Nitrite Negative, Urine Bilirubin Negative, Urine Urobilinogen Normal, Ur Leukocyte Esterase Negative, Urine RBC 10-25 SEEN, Urine WBC 0 SEEN, Ur Squamous Epith Cells 0 SEEN, Urine Bacteria 0 SEEN, Urine Mucus 0 SEEN Micro: Microbiology 01/28/22 10:35 Blood Culture (Wb) - Port Blood Culture - Preliminary 01/28/22 10:40 Blood Culture (Wb) - Anticubital Right Blood Culture - Preliminary 01/28/22 12:25 Nasal Secretion SARS-CoV-2 Antigen (Rapid) - Final Radiology Impression Chest X-Ray 01/28/22 10:57 IMPRESSION: Improved aeration with decreased airspace disease which may represent improving edema or pneumonia. Right central venous catheter in stable position. at 1116 Reported and signed by: Paulo Portillo MD Electronically Signed: Paulo Portillo MD at 11:15 EDT , Assessment & Plan Assessment/Plan (1) Bacteremia due to Streptococcus: (2) Fever and neutropenia: (3) Thrombocytopenia: (4) Bilateral pneumonia: QUALIFIERS: Lung location: lower lobe of lung Pneumonia type: due to unspecified organism Qualified Code(s): J18.9 - Pneumonia, unspecified organism (5) Pancytopenia: PLAN: Neutropenic fever/Pneumonia/Bacteremia Pneumonia likely from strep species. ANC calculated as 10.8 cells per microliter which is severe neutropenia. T-max of 101.1 Fahrenheit at the ED. On recent admission in the hospital patient received vancomycin and cefepime. Patient's mother who was at bedside reported that after discharge from [facility] patient has been getting ceftriaxone at home, administered by home health nurse. On his presentation patient was given vancomycin and cefepime at the emergency department. Vancomycin and cefepime will be continued. Review of records shows that blood culture obtained 01/15/2020 returned positive for strep salivary species. On this presentation blood culture x2 is positive for gram-positive cocci. Urinalysis showed no pyuria, negative leukocyte esterase, negative nitrite, urine occult blood positive, urine RBC positive. Chest x-ray was visualized and independently interpreted. Compared to previous chest x-ray agrees with radiologist that there is improved aeration. Awaiting transfer bed at [facility]. Pancytopenia On presentation white count was 0.6; platelet count was 8; red blood cells was 8.7. Patient received platelet at the emergency department. Reviewed blood counts showed WBC of 0.4; hemoglobin of 8.0 and platelet count of 21. Will trend CBC. DVT prophylaxis: SCDs ordered Charges/Coding Visit Charges Inpatient E&M: 60493 Init Hosp L3
[2022-01-29 01:31] LABS: Absolute Lymphocyte Count 0.23 X10^3/uL (0.83-4.51); Hematocrit 23.3 % (40-54); Lymphocyte # 0.23 X10^3/ul (0.83-4.51); Lymphocyte % 60.5 % (19-41); Mean Corp Hgb Conc 34.3 g/dL (32-36); Mean Corpuscular Volume 90.3 fL (80-94); Monocyte# 0.14 X10^3/uL; Monocyte% 36.8 % (0-10); NRBC Flagged by Analyzer 0 % (0-5); Neutrophil # 0.01 X10^3/uL (2.7-7.7); Neutrophil % 2.7 % (47-70); POSITIVE COUNT YES; POSITIVE DIFFERENTIAL YES; POSITIVE MORPHOLOGY YES; RBC Distribution Width SD 49.1 fl (35.1-43.9); Red Blood Count 2.58 M/mm3 (4.6-6.2)
[2022-01-29 01:40] LABS: Differential Indicated SCAN CRITERIA MET; Platelet Count 21 K/mm3 (150-450); White Blood Count 0.4 K/mm3 (4.4-11.0)
[2022-01-29] MEDS: Acetaminophen 500 MG Tablet 1000 MG PO (02:02)
[2022-01-29 02:24] LABS: Differential Comment SCANNED; Platelet Estimate MKD DEC (ADEQ)
--- NOTE | 2022-01-29 05:41 | PCM.RX.CS ---
Consult Pharmacy has been consulted to manage selected antiobiotic: Vancomycin Type of Consult: New start Suspected Infection: Bacteremia Prior Doses of Antibiotics Received/Current Regimen: Medications Vancomycin HCl (Vancomycin) 1,000 mg in 200 mls @ 200 mls/hr IV Q8H AMADOR Discontinued Medications Vancomycin HCl 2,000 mg/ (Sodium Chloride) 540 mls @ 250 mls/hr IV X1 ONE Stop: 01/28/22 13:06 Last Admin: 01/28/22 16:17 Dose: Infused Vancomycin HCl 2,000 mg/ (Sodium Chloride) 540 mls @ 250 mls/hr IV X1 ONE Stop: 01/29/22 03:41 Last Admin: 01/29/22 04:35 Dose: Infused Labs: Sodium 137 mmol/L (136-145) 01/28/22 10:35 Potassium 3.8 mmol/L (3.5-5.1) 01/28/22 10:35 Chloride 105 mmol/L (98-107) 01/28/22 10:35 Carbon Dioxide 29.0 mmol/L (21.0-32.0) 01/28/22 10:35 Anion Gap 3 (5-15) L 01/28/22 10:35 BUN 18 mg/dL (7-18) 01/28/22 10:35 Creatinine 0.79 mg/dL (0.70-1.30) 01/28/22 10:35 Est GFR (MDRD) Af Amer 131 mL/min (>60) 01/28/22 10:35 Est GFR (MDRD) Non-Af 109 mL/min (>60) 01/28/22 10:35 BUN/Creatinine Ratio 22.8 RATIO (10-20) H 01/28/22 10:35 Glucose 143 mg/dL (74-106) H 01/28/22 10:35 Microbiology: Microbiology 01/28/22 10:40 Blood Culture (Wb) - Anticubital Right Blood Culture - Preliminary 01/28/22 10:35 Blood Culture (Wb) - Port Blood Culture - Preliminary 01/28/22 12:25 Nasal Secretion SARS-CoV-2 Antigen (Rapid) - Final Weight used for dosin.8 kg Estimated Creatinine Clearance: 108 Goal Trough: 15-20 mcg/mL Pharmacy Plan for Drug Dosing: Patient had received two 2000mg vancomycin doses while on extended stay in ED, pending transfer to [facility] when available. On PCU will be started on 1000mg q8h, to begin 12 hours after the last 2g dose was given in ED. A trough level will be drawn prior to 4th dose. Pharmacy Service will continue to monitor and adjust dosing as required. Follow-Up Labs: Trough Vancomycin Labs to be done on [date and time ordered]: 01/30/22 @1400
[2022-01-29] MEDS: 0.9% Normal Saline 1,000 ML 75 ML IV ×2 (05:52→17:51)
[2022-01-29] MEDS: Ursodiol 250 MG Tablet PO ×3 (05:52→21:38)
[2022-01-29] MEDS: Cholecalciferol (VIT D3) 25 MCG TABLET (1,000 UNITS) 50 MCG PO (09:13)
[2022-01-29] MEDS: Acetaminophen 325 MG Tablet 650 MG PO ×2 (09:13→23:34)
[2022-01-29] MEDS: Famotidine 20 MG Tablet PO ×2 (09:14→21:38)
[2022-01-29] MEDS: Voriconazole 200 MG Tablet PO ×2 (09:14→21:38)
[2022-01-29] MEDS: Acyclovir 200 MG Capsule 400 MG PO ×2 (09:14→21:38)
[2022-01-29] MEDS: Smz/Tmp Ds Tablet 1 TABLET PO (09:18)
--- NOTE | 2022-01-29 11:43 | CASEMGMT ---
Readmission chart review: 01/15-01/17/22 Neutropenic fever w/ pneumonia 01/29/22-current Neutropenic fever w/ bacteremia Pt was [place] [facility] [place] with SOB/chills. [facility] Pt has hx of myelodysplastic syndrome s/p stem cell transplant with conversion to leukemia. Pt was subsequently d/c'd from [facility] on 01/25/22 and is currently getting chemo OP for leukemia, last chemo dose was 01/11/22. Pt returned to [facility] ED on 01/29/22 with fever and admitted to PCU for neutropenic fever again. Plan is for pt to be transferred back to [facility] per pt's oncologist and pt was admitted to [facility] as we are awaiting bed at [facility]. CM to follow for any further discharge planning/needs. Adina GASTON CM
[2022-01-29] MEDS: predniSONE 20 MG Tablet 90 MG PO (12:31)
[2022-01-29] MEDS: Vancomycin IV 1,000 MG/200 ML BAG 200 MG IV ×2 (12:47→23:10)
[2022-01-29 12:49] LABS: Absolute Lymphocyte Count 0.24 X10^3/uL (0.83-4.51); Hematocrit 22.4 % (40-54); Hemoglobin 7.9 g/dL (13.0-16.5); Lymphocyte # 0.24 X10^3/ul (0.83-4.51); Lymphocyte % 58.5 % (19-41); Mean Corp Hgb Conc 35.3 g/dL (32-36); Mean Corpuscular Hgb 31.2 pg (27.0-32.0); Mean Corpuscular Volume 88.5 fL (80-94); Monocyte# 0.16 X10^3/uL; NRBC Flagged by Analyzer 0 % (0-5); Neutrophil # 0.01 X10^3/uL (2.7-7.7); Neutrophil % 2.5 % (47-70); POSITIVE COUNT YES; POSITIVE DIFFERENTIAL YES; POSITIVE MORPHOLOGY YES; Platelet Count 10 K/mm3 (150-450); RBC Distribution Width CV 15.2 % (11.6-14.6); RBC Distribution Width SD 49.6 fl (35.1-43.9); Red Blood Count 2.53 M/mm3 (4.6-6.2)
[2022-01-29 12:56] LABS: White Blood Count 0.4 K/mm3 (4.4-11.0)
[2022-01-29 12:57] LABS: Differential Indicated SCAN CRITERIA MET
[2022-01-29 13:06] LABS: Pathologist Review Reviewed
[2022-01-29 13:08] LABS: Pathologist Review Reviewed
--- NOTE | 2022-01-29 13:51 | PN.HOSP_ITS ---
Subjective Subjective Still with fevers. While at [facility] had tunnelled central IV access placed. No issues with the line that he is aware of. Objective Data Objective Data Vital Signs: Vital Signs Temp Pulse Resp BP Pulse Ox 37.2 C 107 H 18 117/66 95 01/29/22 10:45 01/29/22 10:45 01/29/22 10:45 01/29/22 10:45 01/29/22 10:45 Oxygen Flow Rate (L/min) 2 Oxygen Delivery Method Nasal Cannula Weight: 77.8 kg Body Mass Index (BMI) 25.0 Intake & Output: Intake and Output for Last 24 Hours 01/27/22 01/28/22 01/29/22 23:59 23:59 23:59 Intake Total 1840 / 1840 1240 / 1240 Output Total 500 / 500 Balance 1840 / 1840 740 / 740 Lab / Micro Data Result Diagrams: 01/29/22 12:30 01/28/22 10:35 Labs: Laboratory Results - last 24 hr 01/28/22 10:35: Diff Path Review Reviewed 01/29/22 01:25: WBC 0.4 L*, RBC 2.58 L, Hgb 8.0 L, Hct 23.3 L, MCV 90.3, MCH 31.0, MCHC 34.3, RDW Std Deviation 49.1 H, RDW Coeff of Thomas 15.0 H, Plt Count 21 L*, MPV TNP, Immature Gran % (Auto) 0.000, Neut % (Auto) 2.7 L, Lymph % (Auto) 60.5 H, [place] % (Auto) 36.8 H, Eos % (Auto) 0.0, Baso % (Auto) 0.0, Absolute Neuts (auto) 0.0 L, Absolute Lymphs (auto) 0.23 L, Nucleated RBC % 0, Differential Comment SCANNED, Diff Path Review Reviewed, Platelet Estimate MKD 01/29/22 12:30: WBC 0.4 L*, RBC 2.53 L, Hgb 7.9 L, Hct 22.4 L, MCV 88.5, MCH 31.2, MCHC 35.3, RDW Std Deviation 49.6 H, RDW Coeff of Thomas 15.2 H, Plt Count 10 L*, Immature Gran % (Auto) 0.000, Neut % (Auto) 2.5 L, Lymph % (Auto) 58.5 H, Curry % (Auto) 39.0 H, Eos % (Auto) 0.0, Baso % (Auto) 0.0, Absolute Neuts (auto) 0.0 L, Absolute Lymphs (auto) 0.24 L, Nucleated RBC % 0, Differential Comment , Diff Path Review May foll Micro: Microbiology 01/28/22 12:30 Urine, Clean Catch Urine Culture - Preliminary Culture exhibits no growth. 01/28/22 10:35 Blood Culture (Wb) - Port Bacteria Detection (PCR) - Final Enterococcus faecium 01/28/22 10:35 Blood Culture (Wb) - Port Blood Culture - Preliminary 01/29/22 05:40 Mucosa - Nasopharyngeal Influenza Types A,B Direct FA (CLAUDIA) - Final 01/28/22 10:40 Blood Culture (Wb) - Anticubital Right Blood Culture - Preliminary 01/28/22 12:25 Nasal Secretion SARS-CoV-2 Antigen (Rapid) - Final Physical Exam Const alert and no apparent distress Constitutional Narrative: diaphoretic. HEENT head/scalp atraumatic HEENT Narrative: Mucous membrane appears to be improved from when evaluated previously. Does not have any petechiae noted nor any thrush nor any mucositis. Head and Scalp: normocephalic Resp normal respiratory effort, no retractions and no use of accessory muscles Cardio regular rate, regular rhythm, S1 normal heart sound and S2 normal heart sound GI normal to inspection, nondistended, normoactive bowel sounds, soft to palpation, non-tender and non-distended Extremity normal to inspection and no clubbing, cyanosis or edema Skin Skin Narrative: Bruising on right upper extremity. Neuro Sensorium / Orientation: awake and alert Psych affect normal Assessment & Plan Assessment/Plan (1) Fever and neutropenia: (2) Bacteremia due to Enterococcus: (3) Pancytopenia: (4) Bacteremia due to Streptococcus: PLAN: 1. Neutropenic fever On cefepime and vancomycin Blood culture positive for Enterococcus Follow-up cultures 2. Enterococcus bacteremia Patient does not, least at this point in time, have streptococcal bacteremia. Therefore streptococcal bacteremia has been ruled out Repeat blood cultures Adjust antibiotics accordingly based on final culture results Unclear what source this is from but certainly could be possibly related with translocation from his gut given his neutropenia 3. Pancytopenia Due to salvage therapy for AML Platelets 10,000, will transfuse Hemoglobin 7.9, no need to transfuse at this point in time 4. AML Complicates care and recovery Patient is on prednisone which also complicates is neutropenic fever and making him more susceptible to infections. 5. VTE prophylaxis: SCDs ordered Charges/Coding Procedures Hospitalists Procedures: Other Procedure - See Report (Nonbillable rounding as patient was admitted after midnight.)
[2022-01-29] MEDS: DiphenhydrAMINE 25 MG Capsule PO (23:35)
[2022-01-30] VITALS (20 sets, daily range): BP systolic 110–160; BP diastolic 7–91; PULSE 86–124; RESP 16–20; TEMP 36.6–39.2; O2SAT 90–100
[2022-01-30] MEDS: Ursodiol 250 MG Tablet PO ×3 (05:04→21:11)
[2022-01-30 05:30] LABS: Absolute Lymphocyte Count 0.16 X10^3/uL (0.83-4.51); Hematocrit 19.5 % (40-54); Hemoglobin 6.9 g/dL (13.0-16.5); Lymphocyte # 0.16 X10^3/ul (0.83-4.51); Lymphocyte % 53.3 % (19-41); Mean Corp Hgb Conc 35.4 g/dL (32-36); Mean Corpuscular Hgb 30.9 pg (27.0-32.0); Mean Corpuscular Volume 87.4 fL (80-94); Mean Platelet Vol. 9.3 fl (6.2-12.0); Monocyte# 0.12 X10^3/uL; NRBC Flagged by Analyzer 6.7 % (0-5); Neutrophil # 0.02 X10^3/uL (2.7-7.7); Neutrophil % 6.7 % (47-70); POSITIVE COUNT YES; POSITIVE DIFFERENTIAL YES; POSITIVE MORPHOLOGY YES; RBC Distribution Width CV 14.7 % (11.6-14.6); RBC Distribution Width SD 47.6 fl (35.1-43.9); Red Blood Count 2.23 M/mm3 (4.6-6.2)
[2022-01-30 05:37] LABS: Differential Indicated SCAN CRITERIA MET; Platelet Count 32 K/mm3 (150-450); White Blood Count 0.3 K/mm3 (4.4-11.0)
[2022-01-30] MEDS: Vancomycin IV 1,000 MG/200 ML BAG 200 MG IV ×3 (05:44→22:08)
[2022-01-30 06:04] LABS: Anion Gap 3 (5-15); BUN 16 mg/dL (7-18); BUN/Creat Ratio 22.8 RATIO (10-20); Calcium,Total 8.8 mg/dL (8.5-10.1); Chloride 108 mmol/L (98-107); EST Glomerular Filtration Rate 125 mL/min (>60); Est Glom Filt Rate - Afr Amer 151 mL/min (>60); Estimated Creatinine Clearance 122.04 ml/min; Glucose 137 mg/dL (74-106); Potassium 3.7 mmol/L (3.5-5.1); Sodium Level 140 mmol/L (136-145)
[2022-01-30 06:06] LABS: Differential Comment SCANNED; Platelet Estimate MKD DEC (ADEQ)
[2022-01-30] MEDS: Acetaminophen 325 MG Tablet 650 MG PO (08:44)
[2022-01-30] MEDS: 0.9% Normal Saline 1,000 ML 75 ML IV (08:50)
[2022-01-30] MEDS: predniSONE 20 MG Tablet 90 MG PO (09:13)
[2022-01-30] MEDS: Famotidine 20 MG Tablet PO ×2 (09:14→21:10)
[2022-01-30] MEDS: Acyclovir 200 MG Capsule 400 MG PO ×2 (09:15→21:11)
[2022-01-30] MEDS: Voriconazole 200 MG Tablet PO ×2 (09:15→21:11)
[2022-01-30] MEDS: Cholecalciferol (VIT D3) 25 MCG TABLET (1,000 UNITS) 50 MCG PO (09:15)
--- NOTE | 2022-01-30 09:39 | RAD_ITS ---
STUDY: X-RAY CHEST REASON FOR EXAM: Male, 51 years old. hypoxia. fever. TECHNIQUE: Single AP portable view of the chest. COMPARISON: 01/28/2022. FINDINGS: Right-sided subclavian central venous catheter with the tip in the atriocaval junction region unchanged. Patchy infiltrates in the right upper and lower lung zones increased since previous exam. There is no demonstrated pleural abnormality. Normal size heart. Normal mediastinum and gita. Normal visualized pulmonary arteries. Tortuosity of the thoracic aorta. Normal visualized thoracic spine. Normal visualized ribs, clavicles, and shoulders. There is no demonstrated abnormality of the visualized soft tissue structures of the upper abdomen. RAD/Chest 1 View (Portable) IMPRESSION: Patchy infiltrates in the right lung increased since previous exam. Electronically Signed: Riley Bernardo MD at 11:53 EDT ,
--- NOTE | 2022-01-30 13:42 | PCM.PN.HOSP ---
Subjective Subjective Increased oxygen requirements. Ongoing fevers. Objective Data Objective Data Vital Signs: Vital Signs Temp Pulse Resp BP Pulse Ox 37.4 C H 94 18 119/75 96 01/30/22 13:08 01/30/22 13:08 01/30/22 13:08 01/30/22 13:08 01/30/22 13:08 Oxygen Flow Rate (L/min) 2 Oxygen Delivery Method Nasal Cannula Weight: 77.8 kg Body Mass Index (BMI) 25.0 Intake & Output: Intake and Output for Last 24 Hours 01/28/22 01/29/22 01/30/22 23:59 23:59 23:59 Intake Total 1840 / 1840 3010.00 / 3410.00 2437.5 / 2437.5 Output Total 500 / 500 Balance 1840 / 1840 2510.00 / 2910.00 2437.5 / 2437.5 Lab / Micro Data Result Diagrams: 01/30/22 05:18 01/30/22 05:18 Labs: Laboratory Results - last 24 hr 01/28/22 11:35: Crossmatch See Detail 01/30/22 05:18: WBC 0.3 L*, RBC 2.23 L, Hgb 6.9 L, Hct 19.5 L, MCV 87.4, MCH 30.9, MCHC 35.4, RDW Std Deviation 47.6 H, RDW Coeff of Thomas 14.7 H, Plt Count 32 L*, MPV 9.3, Immature Gran % (Auto) 0.000, Neut % (Auto) 6.7 L, Lymph % (Auto) 53.3 H, [place] % (Auto) 40.0 H, Eos % (Auto) 0.0, Baso % (Auto) 0.0, Absolute Neuts (auto) 0.0 L, Absolute Lymphs (auto) 0.16 L, Nucleated RBC % 6.7 H, Differential Comment SCANNED, Diff Path Review March macarena, Platelet Estimate MKD 01/30/22 05:18: Sodium 140, Potassium 3.7, Chloride 108 H, Carbon Dioxide 29.0, Anion Gap 3 L, BUN 16, Creatinine 0.70, Estim Creat Clear Calc 122.04, Est GFR (MDRD) Af Amer 151, Est GFR (MDRD) Non-Af 125, BUN/Creatinine Ratio 22.8 H, Glucose 137 H, Calcium 8.8 Micro: Microbiology 01/28/22 10:40 Blood Culture (Wb) - Anticubital Right Blood Culture - Preliminary GPC Poss Enterococcus sp 01/28/22 10:35 Blood Culture (Wb) - Port Bacteria Detection (PCR) - Final Enterococcus faecium 01/28/22 10:35 Blood Culture (Wb) - Port Blood Culture - Preliminary Enterococcus faecium 01/28/22 12:30 Urine, Clean Catch Urine Culture - Preliminary Culture exhibits no growth. 01/29/22 05:40 Mucosa - Nasopharyngeal Influenza Types A,B Direct FA (CLAUDIA) - Final 01/28/22 12:25 Nasal Secretion SARS-CoV-2 Antigen (Rapid) - Final Radiography Diagnostic Testing: Radiology Impression Chest X-Ray 01/30/22 09:39 IMPRESSION: Patchy infiltrates in the right lung increased since previous exam. Electronically Signed: Riley Bernardo MD at 11:53 EDT , Physical Exam Const alert and no apparent distress Resp normal respiratory effort and no retractions Resp Narrative: Bibasilar crackles Cardio regular rate, regular rhythm, S1 normal heart sound and S2 normal heart sound GI normal to inspection, nondistended, normoactive bowel sounds, soft to palpation, non-tender and non-distended Extremity normal to inspection and full ROM Assessment & Plan Assessment/Plan (1) Fever and neutropenia: (2) Bacteremia due to Enterococcus: (3) Pancytopenia: (4) Bacteremia due to Streptococcus: PLAN: 1. Neutropenic fever On cefepime and vancomycin Blood culture positive for Enterococcus Follow-up cultures 2. Enterococcus bacteremia Patient had streptococcal bacteremia last admission. Current blood cultures are positive for Enterococcus faecium. Therefore streptococcal bacteremia has been ruled out Repeat blood cultures on the still pending Adjust antibiotics accordingly based on final culture results Unclear what source this is from but certainly could be possibly related with translocation from his gut given his neutropenia 3. Pancytopenia Due to salvage therapy for AML Transfuse 1 unit of platelets platelets went from 10,000 to 32,000 Hemoglobin 6 .9, will transfuse 1 unit packed red blood cells. 4. AML Complicates care and recovery Patient is on prednisone which also complicates is neutropenic fever and making him more susceptible to infections. 5. VTE prophylaxis: SCDs ordered 6. Acute hypoxic respiratory failure Repeat chest x-ray is concerning for volume overload CHF. 2D echocardiogram from the for this month showed an EF of 55%. The eyes and nose are certainly inaccurate but patient is 6 L positive. Other possibilities could be ARDS/acute lung injury. But the absence of any definitive pulmonary etiology that seems less likely. Plan: start furosemide 40mg IV BID 7.Disposition: Patient has been accepted at [facility] as he was just discharged there on the . No bed availability yet. Patient may be here over the weekend awaiting bed placement. Charges/Coding Visit Charges Inpatient E&M: 33429 Subs Hosp L2
[2022-01-30 15:51] LABS: Vancomycin, Trough Level 14.8 ug/mL (5.0-15.0)
--- NOTE | 2022-01-30 16:25 | PCM.RX.CS ---
Consult Pharmacy has been consulted to manage selected antiobiotic: Vancomycin Type of Consult: Follow-up Prior Doses of Antibiotics Received/Current Regimen: Medications Vancomycin HCl (Vancomycin) 1,000 mg in 200 mls @ 200 mls/hr IV Q8H AMADOR Last Admin: 01/30/22 06:44 Dose: Infused Documented by: Labs: Sodium 140 mmol/L (136-145) 01/30/22 05:18 Potassium 3.7 mmol/L (3.5-5.1) 01/30/22 05:18 Chloride 108 mmol/L (98-107) H 01/30/22 05:18 Carbon Dioxide 29.0 mmol/L (21.0-32.0) 01/30/22 05:18 Anion Gap 3 (5-15) L 01/30/22 05:18 BUN 16 mg/dL (7-18) 01/30/22 05:18 Creatinine 0.70 mg/dL (0.70-1.30) 01/30/22 05:18 Est GFR (MDRD) Af Amer 151 mL/min (>60) 01/30/22 05:18 Est GFR (MDRD) Non-Af 125 mL/min (>60) 01/30/22 05:18 BUN/Creatinine Ratio 22.8 RATIO (10-20) H 01/30/22 05:18 Glucose 137 mg/dL (74-106) H 01/30/22 05:18 Vancomycin Trough 14.8 ug/mL (5.0-15.0) 01/30/22 14:25 Microbiology: Microbiology 01/28/22 10:40 Blood Culture (Wb) - Anticubital Right Blood Culture - Preliminary GPC Poss Enterococcus sp 01/28/22 10:35 Blood Culture (Wb) - Port Bacteria Detection (PCR) - Final Enterococcus faecium 01/28/22 10:35 Blood Culture (Wb) - Port Blood Culture - Preliminary Enterococcus faecium 01/28/22 12:30 Urine, Clean Catch Urine Culture - Preliminary Culture exhibits no growth. 01/29/22 05:40 Mucosa - Nasopharyngeal Influenza Types A,B Direct FA (CLAUDIA) - Final 01/28/22 12:25 Nasal Secretion SARS-CoV-2 Antigen (Rapid) - Final Goal Trough: 15-20 mcg/mL Pharmacy Plan for Drug Dosing: Trough drawn slightly late, slightly below goal range. Recommend to re-check after 2 days. Pharmacy Service will continue to monitor and adjust dosing as required. Follow-Up Labs: Trough Vancomycin - 02/01 @ 1400
--- NOTE | 2022-01-30 17:34 | NURSING ---
Home meds sent home with patients at patients request.
[2022-01-30] MEDS: Furosemide 40 MG/4 ML Vial IV (17:35)
[2022-01-30] MEDS: 0.9% Saline Lock 10 ML Syringe IV (17:36)
[2022-01-31 03:36] VITALS: BP 145/90; PULSE 103; RESP 20; TEMP 37.7; O2SAT 96
[2022-01-31 05:30] VITALS: TEMP 38.6
[2022-01-31] MEDS: Acetaminophen 325 MG Tablet 650 MG PO (05:30)
[2022-01-31] MEDS: Ursodiol 250 MG Tablet PO ×2 (05:30→14:07)
[2022-01-31 05:44] LABS: Absolute Lymphocyte Count 0.27 X10^3/uL (0.83-4.51); Basophil# 0.01 X10^3/uL; Basophil% 1.9 % (0-1); Hematocrit 24.7 % (40-54); Hemoglobin 8.5 g/dL (13.0-16.5); Lymphocyte # 0.27 X10^3/ul (0.83-4.51); Lymphocyte % 50.9 % (19-41); Mean Corp Hgb Conc 34.4 g/dL (32-36); Mean Corpuscular Volume 84.3 fL (80-94); Monocyte# 0.24 X10^3/uL; Monocyte% 45.3 % (0-10); NRBC Flagged by Analyzer 0 % (0-5); POSITIVE COUNT YES; POSITIVE DIFFERENTIAL YES; POSITIVE MORPHOLOGY YES; RBC Distribution Width CV 16.2 % (11.6-14.6); RBC Distribution Width SD 49.9 fl (35.1-43.9); Red Blood Count 2.93 M/mm3 (4.6-6.2)
[2022-01-31 06:12] LABS: Differential Indicated SCAN CRITERIA MET; Platelet Count 13 K/mm3 (150-450); White Blood Count 0.5 K/mm3 (4.4-11.0)
[2022-01-31 06:16] LABS: Anion Gap 4 (5-15); BUN 19 mg/dL (7-18); BUN/Creat Ratio 20.1 RATIO (10-20); Calcium,Total 9.2 mg/dL (8.5-10.1); Chloride 106 mmol/L (98-107); Creatinine, Serum 0.95 mg/dL (0.70-1.30); EST Glomerular Filtration Rate 88 mL/min (>60); Est Glom Filt Rate - Afr Amer 107 mL/min (>60); Estimated Creatinine Clearance 89.93 ml/min; Glucose 121 mg/dL (74-106); Potassium 3.3 mmol/L (3.5-5.1); Sodium Level 140 mmol/L (136-145)
[2022-01-31] MEDS: Vancomycin IV 1,000 MG/200 ML BAG 200 MG IV ×2 (06:32→15:01)
[2022-01-31 06:33] VITALS: TEMP 37.3
[2022-01-31 06:57] LABS: Differential Comment SCANNED; Platelet Estimate MKD DEC (ADEQ)
[2022-01-31 07:40] VITALS: O2SAT 95
[2022-01-31] MEDS: Cholecalciferol (VIT D3) 25 MCG TABLET (1,000 UNITS) 50 MCG PO (08:02)
[2022-01-31] MEDS: Acyclovir 200 MG Capsule 400 MG PO (08:03)
[2022-01-31] MEDS: Voriconazole 200 MG Tablet PO (08:04)
[2022-01-31] MEDS: predniSONE 20 MG Tablet 90 MG PO (08:04)
[2022-01-31] MEDS: Furosemide 40 MG/4 ML Vial IV (08:05)
[2022-01-31] MEDS: Famotidine 20 MG Tablet PO (08:05)
[2022-01-31 08:30] VITALS: BP 118/82; PULSE 94; RESP 18; TEMP 36.9; O2SAT 95
[2022-01-31] MEDS: Potassium Chloride Oral Tablet 20 MEQ 40 MEQ PO (09:29)
--- NOTE | 2022-01-31 11:17 | PN.HOSP_ITS ---
Subjective Subjective Patient seen and examined. He had no active complaints and had an uneventful night. Review of systems otherwise negative. He has remained hemodynamically stable. His platelets are down to 13 today. He is awaiting transfer to [facility] where he has been accepted for there is no bed yet. Objective Data Objective Data Vital Signs: Vital Signs Temp Pulse Resp BP Pulse Ox 98.4 F 94 18 118/82 H 95 01/31/22 08:30 01/31/22 08:30 01/31/22 08:30 01/31/22 08:30 01/31/22 08:30 Oxygen Flow Rate (L/min) 2 Oxygen Delivery Method Nasal Cannula Weight: 171 lb 8.314 oz Body Mass Index (BMI) 25.0 Intake & Output: Intake and Output for Last 24 Hours 01/29/22 01/30/22 01/31/22 23:59 23:59 23:59 Intake Total 3010.00 / 3410.00 4653.75 / 4653.75 420 / 420 Output Total 500 / 500 1400 / 1400 550 / 550 Balance 2510.00 / 2910.00 3253.75 / 3253.75 -130 / -130 Lab / Micro Data Result Diagrams: 01/31/22 04:39 01/31/22 04:39 Labs: Laboratory Results - last 24 hr 01/28/22 11:35: Crossmatch See Detail 01/30/22 14:25: Vancomycin Trough 14.8 01/31/22 04:39: WBC 0.5 L*, RBC 2.93 L, Hgb 8.5 L, Hct 24.7 L, MCV 84.3, MCH 29.0, MCHC 34.4, RDW Std Deviation 49.9 H, RDW Coeff of Thomas 16.2 H, Plt Count 13 L*, MPV TNP, Immature Gran % (Auto) 1.900 H, Neut % (Auto) 0.0 L, Lymph % (Auto) 50.9 H, [place] % (Auto) 45.3 H, Eos % (Auto) 0.0, Baso % (Auto) 1.9 H, Absolute Neuts (auto) 0.0 L, Absolute Lymphs (auto) 0.27 L, Nucleated RBC % 0, Differential Comment SCANNED, Diff Path Review [place], Platelet Estimate MKD 01/31/22 04:39: Sodium 140, Potassium 3.3 L, Chloride 106, Carbon Dioxide 30.0, Anion Gap 4 L, BUN 19 H, Creatinine 0.95, Estim Creat Clear Calc 89.93, Est GFR (MDRD) Af Amer 107, Est GFR (MDRD) Non-Af 88, BUN/Creatinine Ratio 20.1 H, Glucose 121 H, Calcium 9.2 Micro: Microbiology 01/28/22 12:30 Urine, Clean Catch Urine Culture - Final Culture exhibits no growth. 01/29/22 14:30 Blood Culture (Wb) - Anticubital Right Blood Culture - Preliminary No growth in 48 hours. 01/29/22 14:25 Blood Culture (Wb) - Anticubital Left Blood Culture - Preliminary No growth in 48 hours. 01/28/22 10:35 Blood Culture (Wb) - Port Bacteria Detection (PCR) - Final Enterococcus faecium 01/28/22 10:35 Blood Culture (Wb) - Port Blood Culture - Final Enterococcus faecium 01/28/22 10:40 Blood Culture (Wb) - Anticubital Right Blood Culture - Final Enterococcus faecium 01/29/22 05:40 Mucosa - Nasopharyngeal Influenza Types A,B Direct FA (CLAUDIA) - Final 01/28/22 12:25 Nasal Secretion SARS-CoV-2 Antigen (Rapid) - Final Radiography Diagnostic Testing: Radiology Impression Chest X-Ray 01/30/22 09:39 IMPRESSION: Patchy infiltrates in the right lung increased since previous exam. Electronically Signed: Riley Bernardo MD at 11:53 EDT , Physical Exam Const alert, oriented x3 and no apparent distress Exam Limitations: no limitations HEENT head/scalp atraumatic and moist oral mucous membranes Head and Scalp: normocephalic Eyes PERRL, EOMs intact bilaterally and conjunctivae normal Neck no lymphadenopathy, supple and no JVD Resp normal respiratory effort, no retractions, no use of accessory muscles and clear to auscultation bilaterally Cardio regular rate, regular rhythm, S1 normal heart sound, S2 normal heart sound and no murmurs GI normal to inspection, nondistended, normoactive bowel sounds, soft to palpation, non-tender and non-distended Extremity normal to inspection, full ROM and no clubbing, cyanosis or edema Peripheral Pulses: Yes pulses 2+ throughout Skin no rashes or lesions noted Neuro oriented x3, CN's II-XII intact bilaterally and moves all extremities Sensorium / Orientation: awake and alert Psych affect normal Assessment & Plan Assessment/Plan (1) Bacteremia due to Enterococcus: (2) Fever and neutropenia: (3) Bilateral pneumonia: QUALIFIERS: Pneumonia type: due to unspecified organism Lung location: lower lobe of lung Qualified Code(s): J18.9 - Pneumonia, unspecified organism PLAN: #Bacteremia due to Enterococcus pneumonia * On IV vancomycin * Repeat blood cultures pending. * #Acute hypoxic respiratory failure * Concerning for fluid overload. * Started on IV Lasix 40 mg twice daily. He has a known EF of 55%. * #Pancytopenia * Due to salvage therapy for AML. * Platelets today are down to 13,000 from 30,000. * WBC 0.5. * will transfuse with platelets * Hb today is 8.5. * #Acute myeloid leukemia * On prednisone. Awaiting transfer to [facility] where he has been accepted pending bed * #DVT prophylaxis: SCDs Charges/Coding Visit Charges Inpatient E&M: 61308 Subs Hosp L3
[2022-01-31 15:00] VITALS: BP 115/77; PULSE 93; RESP 16; TEMP 36.7; O2SAT 96
--- NOTE | 2022-01-31 16:10 | PCM.DC.SUM ---
Providers Date of Admission: 01/29/22 Primary Care Physician: Dr. Christina London DO Reason For Visit: NEUTROPENIC FEVER, BACTEREMIA Diagnosis Discharge Diagnosis (1) Bacteremia due to Enterococcus: Status: Acute Code(s): R78.81 - Bacteremia; B95.2 - Enterococcus as the cause of diseases classified elsewhere (2) Fever and neutropenia: Status: Acute Code(s): D70.9 - Neutropenia, unspecified; R50.81 - Fever presenting with conditions classified elsewhere (3) Bilateral pneumonia: Status: Acute Code(s): J18.9 - Pneumonia, unspecified organism Qualifiers: Pneumonia type: due to unspecified organism Lung location: lower lobe of lung Qualified Code(s): J18.9 - Pneumonia, unspecified organism Medications at Discharge Home Medications acyclovir 400 mg PO BID 10/07/20 ciprofloxacin HCl 500 mg PO BID 01/14/22 famotidine 20 mg PO BID 01/14/22 sulfamethoxazole-trimethoprim 1 tab PO MOWEFR 01/14/22 ursodiol 250 mg PO TID 01/14/22 cholecalciferol (vitamin D3) 50 mcg PO DAILY 01/15/22 aminocaproic acid 1,000 mg PO BID 01/29/22 prednisone 90 mg PO DAILY 01/29/22 voriconazole 200 mg PO Q12H 01/29/22 Hospital Course Operations None Procedures None Summary of Care Provided Minutes Spent on Discharge: 45 Hospital Course: MARIZOL is a 51-year-old male with past medical history significant for myelodysplastic syndrome and AML status post stem cell transplant and [id number]-[id number] disease. He had recently been on admission from [facility] 2021 for neutropenic fever and bilateral pneumonia and was found to have strep bacteremia. He was transferred to the [facility] where he received his oncology care and was subsequently discharged home. He presented to the ED on 01/29/2022 with a complaint of fever. Chest x-ray showed improved aeration with decreased airspace disease which may represent improving edema or pneumonia. He was admitted and managed for neutropenic fever. He was started on vancomycin and cefepime which were continued. Blood cultures were positive for gram-positive cocci which speciation showed was Enterococcus. He was also pancytopenic with platelets of 8 so he was transfused with platelets. Platelets came up to 32 but dropped again on day of discharge 213 so he was transfused with another unit of platelets. Patient has been accepted at [facility] and was admitted with the pending transfer as there was no bed available. Patien did get a bed on 01/31/2022 and was transferred to [facility] for further specialized care. Patient was seen and examined prior to discharge. He had no active complaints and had an uneventful night. Review of systems otherwise negative. Labs and vitals reviewed. Physical Exam Const alert, oriented x3 and no apparent distress Constitutional Narrative: diaphoretic. General Appearance: cooperative, comfortable and well kempt Exam Limitations: no limitations HEENT normocephalic, head/scalp atraumatic, hearing grossly normal bilaterally and moist oral mucous membranes Eyes PERRL, EOMs intact bilaterally and conjunctivae normal Neck no lymphadenopathy, supple and no JVD Resp normal respiratory effort, no retractions, no use of accessory muscles and clear to auscultation bilaterally Resp Narrative: Bibasilar crackles Cardio regular rate, regular rhythm, S1 normal heart sound, S2 normal heart sound and no murmurs GI normal to inspection, nondistended, normoactive bowel sounds, soft to palpation, non-tender and non-distended Extremity normal to inspection, full ROM and no clubbing, cyanosis or edema Skin no rashes or lesions noted Skin Narrative: Bruising on right upper extremity. Neuro oriented x3, CN's II-XII intact bilaterally and moves all extremities Sensorium / Orientation: awake and alert Psych affect normal Weight / BMI Weight Weight: 171 lb 8.314 oz Body Mass Index (BMI) 25.0 ABG / Lab / Microbiology Data Result Diagrams: 01/31/22 04:39 01/31/22 04:39 Laboratory: Laboratory Results - last 24 hr 01/28/22 11:35: Crossmatch See Detail 01/31/22 04:39: WBC 0.5 L*, RBC 2.93 L, Hgb 8.5 L, Hct 24.7 L, MCV 84.3, MCH 29.0, MCHC 34.4, RDW Std Deviation 49.9 H, RDW Coeff of Thomas 16.2 H, Plt Count 13 L*, MPV TNP, Immature Gran % (Auto) 1.900 H, Neut % (Auto) 0.0 L, Lymph % (Auto) 50.9 H, [place] % (Auto) 45.3 H, Eos % (Auto) 0.0, Baso % (Auto) 1.9 H, Absolute Neuts (auto) 0.0 L, Absolute Lymphs (auto) 0.27 L, Nucleated RBC % 0, Differential Comment SCANNED, Diff Path Review May foll, Platelet Estimate MKD 01/31/22 04:39: Sodium 140, Potassium 3.3 L, Chloride 106, Carbon Dioxide 30.0, Anion Gap 4 L, BUN 19 H, Creatinine 0.95, Estim Creat Clear Calc 89.93, Est GFR (MDRD) Af Amer 107, Est GFR (MDRD) Non-Af 88, BUN/Creatinine Ratio 20.1 H, Glucose 121 H, Calcium 9.2 01/31/22 13:00: Blood Type A POSITIVE Microbiology: Microbiology 01/28/22 10:35 Blood Culture (Wb) - Port Bacteria Detection (PCR) - Final Enterococcus faecium 01/28/22 10:35 Blood Culture (Wb) - Port Blood Culture - Final Enterococcus faecium 01/28/22 10:40 Blood Culture (Wb) - Anticubital Right Blood Culture - Final Enterococcus faecium 01/28/22 12:30 Urine, Clean Catch Urine Culture - Final Culture exhibits no growth. 01/29/22 14:30 Blood Culture (Wb) - Anticubital Right Blood Culture - Preliminary No growth in 48 hours. 01/29/22 14:25 Blood Culture (Wb) - Anticubital Left Blood Culture - Preliminary No growth in 48 hours. 01/29/22 05:40 Mucosa - Nasopharyngeal Influenza Types A,B Direct FA (CLAUDIA) - Final 01/28/22 12:25 Nasal Secretion SARS-CoV-2 Antigen (Rapid) - Final Meaningful Use Info Meaningful Use Diagnoses (Choose all that apply): None applicable Discharge Plan Admission Admit Date/Time: 01/29/22 01:10 Primary Reason for Your Visit: febrile neutropenia Attending Provider: Ltia Hall Primary Care Provider: Christina London Discharge Orders/Prescriptions Prescriptions: No Action acyclovir 400 MG tablet 400 mg PO BID RF: 0 ciprofloxacin HCl 500 mg tablet 500 mg PO BID RF: 0 sulfamethoxazole-trimethoprim 800-160 mg tablet 1 tab PO MOWEFR RF: 0 famotidine 20 mg tablet 20 mg PO BID RF: 0 ursodiol 250 mg tablet 250 mg PO TID RF: 0 cholecalciferol (vitamin D3) 50 mcg (2,000 unit) Tablet 50 mcg PO DAILY RF: 0 prednisone 20 mg Tablet 90 mg PO DAILY RF: 0 voriconazole 200 mg Tablet 200 mg PO Q12H RF: 0 aminocaproic acid 1,000 mg tablet 1,000 mg PO BID RF: 0 Referrals / Follow Up: Christina London DO [Primary Care Provider] - Disposition Disposition (needs filled in before D/C Order can be placed): Acute Care Hospital Charges/Coding Visit Charges Inpatient E&M: 03046 Disch Hosp
[2022-02-01 14:24] LABS: Pathologist Review Reviewed
[2022-02-01 14:24] LABS: Pathologist Review Reviewed
[2022-02-01 14:24] LABS: Pathologist Review Reviewed
== END 2022-01-31 17:15 | disposition short-term general hospital (02) | DRG 871 ==
LOC: ED 12:03 → PCU 01-29 03:43
PROVIDERS: Emergency Medicine; Admitting Provider Hospitalist; Emergency Provider Physician Assistant; PCP Internal Medicine; Visit Provider Student in an Organized Health Care Education/Training Program
DX: R78.81 Bacteremia (principal); J15.8 Pneumonia due to other specified bacteria; C92.00 Acute myeloblastic leukemia, not having achieved remission; D61.818 Other pancytopenia; Z94.84 Stem cells transplant status; I50.9 Heart failure, unspecified; B95.2 Enterococcus as the cause of diseases classified elsewhere; R50.81 Fever presenting with conditions classified elsewhere; Z79.52 Long term (current) use of systemic steroids; Z79.899 Other long term (current) drug therapy
CPT/HCPCS: 36415; 71045; 80048; 80053; 80202; 81001; 83605; 85025; 85610; 85730; 86850; 86900; 86901; 86920; 86965; 87040; 87077; 87086; 87149; 87186; 87804; 87811; 93005; 99282; J7030; J7040; J7050; P9035; P9040; A4216; J1940